=== PATIENT | female | born 1985 | race Caucasian/White ===

== ENCOUNTER 2016-11-14 12:52 | Inpatient (IN) | payer OTHER ==
[2016-11-14] VITALS (26 sets, daily range): BP systolic 98–176; BP diastolic 72–115; PULSE 54–95; RESP 16–20; TEMP 98.2–98.3; O2SAT 97–100
[~2016-11-14 12:52] MED LIST: ACYC-1 PO; AMBI5TAB PO; ARIP1TAB12 PO; AUGM875T PO; CLON.5 PO; CLON1 PO; DIPH25CA PO; ESCI10TA PO; ESCI20TA PO; EXTR500C PO; GABA800T PO; HYDR-3366 PO; HYDR-3583 PO; K-PHTAB PO; LAMO100 PO; LEVE500 PO; LEXA20TA PO; LURA20TA PO; MEDR4PAK3 PO; NEUR300C PO; PHEN-430 PO; PROM25TA5 PO; SUMA50TA2 PO; TIZA4 PO; ZOLP5TAB3 PO; levETIRAcetam PO
[2016-11-14] MEDS ORDERED: LORazepam 2 MG/ML VIAL ONE (12:58)
[2016-11-14] MEDS ORDERED: ETOMIDATE 20 MG/10 ML VIAL ONE ×2 (13:01→13:02)
[2016-11-14] MEDS ORDERED: PROPOFOL 1000 MG/100 ML INJ 100 ML ONE ×2 (13:02→15:46)
[2016-11-14] MEDS ORDERED: LIDOCAINE HCL 2% 100 MG/5 ML SYRINGE ONE (13:02)
[2016-11-14] MEDS ORDERED: ROCURONIUM INJ 50 MG/5 ML VIAL ONE (13:03)
[2016-11-14] MEDS ORDERED: levETIRAcetam INJ 1,000 MG in SODIUM CHLORIDE 0.9% INJ 100 ML IV ONE (13:15)
[2016-11-14] MEDS ORDERED: SUCCINYLCHOLINE CHLORIDE 200 MG/10 ML VIAL IVP ONE (13:15)
[2016-11-14] MEDS ORDERED: LORazepam 2 MG/ML VIAL IV PUSH ONE ×3 (13:15→16:30)
[2016-11-14] MEDS ORDERED: PHENYTOIN IV ONE (13:15)
[2016-11-14] MEDS ORDERED: ETOMIDATE 20 MG/10 ML VIAL IVP ONE (13:15)
[2016-11-14] MEDS ORDERED: SODIUM CHLORIDE 0.9% FLUSH 10 ML FLUSH IVF PRN (13:15)
[2016-11-14] MEDS ORDERED: SODIUM CHLOR 0.9% IV ONE (13:15)
--- NOTE | 2016-11-14 13:30 | PD ---
HPI Chief Complaint: Seizure Time Seen by Provider: 12:54 Travel History International Travel<30 days: No Contact w/Intl Traveler<30days: No Traveled to known affect area: No History of Present Illness HPI The patient was seen and examined in the presence of the nurse. This patient arrives critically ill. She was witnessed to have grand mal seizure activity at the social security office. Paramedics responded and she seized almost continually during the transport. Patient arrives unresponsive, looks postictal. She did receive Ativan 2 mg IM. Symptoms are severe. She cannot provide any history or review of systems. PFSH Past Medical History Arthritis: No Autoimmune Disease: No Blood Disorders: No Bipolar Disorder: Yes Anxiety: Yes Depression: Yes Cancer: Yes (cervical cancer - removed) Cardiovascular Problems: No Chemotherapy: No Cerebrovascular Accident: No Diabetes: No Diminished Hearing: No Endocrine: No Gastrointestinal Disorders: Yes (nausea all the time) GERD: Yes Genitourinary: No Headaches: Yes Immune Disorder: No Implanted Vascular Access Dvce: No Kidney Stones: Yes (passed stone in 2011) Musculoskeletal: Yes (back pain) Psychiatric: Yes (Bipolar, ptsd, multiple personalties) Reproductive: Yes Immunizations Current: Yes Migraines: Yes Radiation Therapy: No Seizures: Yes Thyroid Disease: No Ulcer: Yes (PEPTIC) : 0 Para: 0 Miscarriage: 0 : 0 Ovarian Cysts: Yes (3 lap surgeries) Past Surgical History Abdominal Surgery: Yes (gallbladder removed, tonsils and adenoids removed) Cardiac Surgery: No Cholecystectomy: Yes Ear Surgery: No Endocrine Surgery: No Eye Surgery: Yes (left eye surgeries X3 (lazy eye)) Genitourinary Surgery: No Gynecologic Surgery: Yes Neurologic Surgery: No Oral Surgery: No Thoracic Surgery: No Other Surgery: Yes (cervical leep) Social History Alcohol Use: Yes (OCC) Tobacco Use: No (VAPE) Substance Use: No Allergies-Medications (Allergen,Severity, Reaction): Coded Allergies: erythromycin base (Unverified Allergy, Severe, Fever, 10/07/16) gabapentin (Unverified Allergy, Severe, Seizures, 10/07/16) ketorolac (Unverified Allergy, Severe, Urinary Freq (Inc/Dec), 10/07/16) ondansetron (Unverified Allergy, Severe, Twitching, 10/07/16) phenobarbital (Unverified Allergy, Severe, Seizures, 10/07/16) Patient states that she is not allergic to phenobarbital tramadol (Unverified Allergy, Severe, Urinary Freq (Inc/Dec), 10/07/16) metoclopramide (Unverified Adverse Reaction, Intermediate, 10/07/16) SHAKING *MDRO Multi-Drug Resistant Organism (Verified Adverse Reaction, Unknown, ) MRSA PCR screen positive - 04/23/2015 prochlorperazine (Unverified Adverse Reaction, Unknown, AGITATION, 10/14/16 ) Reported Meds & Prescriptions Reported Meds & Active Scripts Active Medrol Dosepak (Methylprednisolone) 4 Mg Silvio 4 Mg PO DIRECTED TAKE DIRECTED Augmentin 875 mg Tab (Amoxicillin & Pot Clavulanate 875 mg Tab) 875 Mg Tab 1 Tab PO BID 10 Days Lamictal (Lamotrigine) 100 Mg Tab 100 Mg PO Q12HR Future refills by neurology. Keppra (Levetriacetam) 500 Mg Tab 1,000 Mg PO Q12H 30 Days [levETIRAcetam] 500 MG Tab 500 Mg PO Q12HR Ambien (Zolpidem Tartrate) 5 Mg Tab 5 Mg PO HS Zanaflex (Tizanidine HCl) 4 Mg Tab 4 Mg PO HS Neurontin (Gabapentin) 300 Mg Cap 600 Mg PO TID Escitalopram (Escitalopram Oxalate) 20 Mg Tab 30 Mg PO HS Klonopin (Clonazepam) 0.5 Mg Tab 0.5 Mg PO Q12HR Aripiprazole 10 Mg Tab 10 Mg PO DAILY Keppra (Levetiracetam) 500 Mg Tab 500 Mg PO Q12HR Klonopin (Clonazepam) 0.5 Mg Tab 0.5 Mg PO Q12HR Sumatriptan (Sumatriptan Succinate) 50 Mg Tab 50 Mg PO ONCE PRN If a satisfactory response has not been obtained at 2 hours, a second dose may be administered Acetaminophen Extra Strength (Acetaminophen) 500 Mg Cap 1,000 Mg PO Q6H PRN Phenergan (Promethazine HCl) 25 Mg Tab 25 Mg PO Q6H PRN K-Phos (Potassium Phosphate Monobasic) 500 Mg Tab 1,000 Mg PO Q12HR Keppra (Levetiracetam) 500 Mg Tab 500 Mg PO Q12H Reported Zovirax 800 Mg Tab (Acyclovir) 800 Mg Tab 800 Mg PO BID Klonopin (Clonazepam) 1 Mg Tab 1 Mg PO TID [place] (Hydrocodone-Acetaminophen) 10-325 Mg Tab 1 Tab PO Q6H PRN Latuda (Lurasidone) 20 Mg Tab 20 Mg PO HS Lexapro (Escitalopram Oxalate) 20 Mg Tab 20 Mg PO HS Keppra (Levetiracetam) 500 Mg Tab 500 Mg PO DAILY Diphenhydramine (Diphenhydramine HCl) 25 Mg Cap 25 Mg PO Q6H PRN Gabapentin 800 Mg Tab 800 Mg PO TID Zolpidem (Zolpidem Tartrate) 5 Mg Tab 5 Mg PO HS PRN Escitalopram (Escitalopram Oxalate) 20 Mg Tab 20 Mg PO DAILY Phenazopyridine (Phenazopyridine HCl) 200 Mg Tab 200 Mg PO TID PRN Sumatriptan (Sumatriptan Succinate) 50 Mg Tab 50 Mg PO ONCE PRN If a satisfactory response has not been obtained at 2 hours, a second dose may be administered Escitalopram (Escitalopram Oxalate) 10 Mg Tab 10 Mg PO DAILY Hydrocodone-Acetaminophen 10-325 mg Tab 1 Tab PO Q6H PRN Review of Systems ROS Limitations: Clinical Condition, Altered Mental Status, Unresponsive, Poor Historian Physical Exam Narrative GENERAL: Obese young female who is unresponsive. SKIN: Focused skin assessment reveals no rash and nodules. Skin is Warm and dry. HEAD: Atraumatic. Normocephalic. EYES: Pupils equal and round. No scleral icterus. No injection or drainage. ENT: No nasal bleeding or discharge. Mucous membranes pink and moist. Patient has no gag reflex. She clearly cannot control her airway NECK: Trachea midline. No JVD. CARDIOVASCULAR: Regular rate and rhythm. No murmur appreciated. RESPIRATORY: No accessory muscle use. Clear to auscultation. Breath sounds equal bilaterally. GASTROINTESTINAL: Abdomen soft, non-tender, nondistended. Hepatic and splenic margins not palpable. MUSCULOSKELETAL: No obvious deformities. No clubbing. No cyanosis. No edema. NEUROLOGICAL: No response to pain stimuli. No gag reflex. Impossible to test motor strength or sensation given her limited participation. She is nonverbal PSYCHIATRIC: Impossible to test mood and affect; insight and judgment poor Data Data Last Documented VS Vital Signs Date Time Temp Pulse Resp B/P (MAP) Pulse Ox O2 Delivery O2 Flow Rate FiO2 11/14/16 13:40 100 100 Orders Orders Lorazepam Inj (Ativan Inj) (11/14/16 12:58) Etomidate Inj (Amidate Inj) (11/14/16 13:01) Etomidate Inj (Amidate Inj) (11/14/16 13:02) Lidocaine 2% Inj (Xylocaine 2% Inj) (11/14/16 13:02) Propofol 1000 Mg/100 Ml Inj (Diprivan 10 (11/14/16 13:02) Rocuronium Inj (Zemuron Inj) (11/14/16 13:03) Vascular Access Team Consult/P PRN (11/14/16 13:14) Vascular Poc Ultrasound (11/14/16 ) Chest, Single Ap (11/14/16 13:14) Arterial Blood Gas (Abg) (11/14/16 13:14) Ecg Monitoring (11/14/16 13:14) Iv Access Insert/Monitor (11/14/16 13:14) Ng Gastric Tube Insert/Monitor (11/14/16 13:14) Urinary Catheter Insert/Apply (11/14/16 13:14) Oximetry (11/14/16 13:14) Oxygen Administration (11/14/16 13:14) Etomidate Inj (Amidate Inj) (11/14/16 13:15) Succinylcholine Inj (Quelicin Inj) (11/14/16 13:15) Sodium Chloride 0.9% Flush (Ns Flush) (11/14/16 13:15) Restraints Non-Violent MARY.Q3H (11/14/16 13:14) Lorazepam Inj (Ativan Inj) (11/14/16 13:15) Beta Hcg (Quant/Titer) (11/14/16 13:14) Complete Blood Count With Diff (11/14/16 13:14) Basic Metabolic Panel (Bmp) (11/14/16 13:14) Drug Screen, Random Urine (11/14/16 13:14) Alcohol (Ethanol) (11/14/16 13:14) Phenytoin (Dilantin) (11/14/16 13:14) Phenytoin Inj (Dilantin Inj) (11/14/16 13:15) Levetiracetam Inj (Keppra Inj) (11/14/16 13:15) Ct Brain W/O Iv Contrast(Rout) (11/14/16 ) Lorazepam Inj (Ativan Inj) (11/14/16 14:45) Rocuronium Inj (Zemuron Inj) (11/14/16 14:45) Admit Order (Ed Use Only) (11/14/16 15:00) Labs Laboratory Tests Test 11/14/16 13:00 11/14/16 13:45 11/14/16 14:31 White Blood Count 12.9 TH/MM3 Red Blood Count 4.27 MIL/MM3 Hemoglobin 13.0 GM/DL Hematocrit 37.5 % Mean Corpuscular Volume 87.7 FL Mean Corpuscular Hemoglobin 30.5 PG Mean Corpuscular Hemoglobin Concent 34.8 % Red Cell Distribution Width 12.9 % Platelet Count 287 TH/MM3 Mean Platelet Volume 9.5 FL Neutrophils (%) (Auto) 68.2 % Lymphocytes (%) (Auto) 24.4 % Monocytes (%) (Auto) 5.6 % Eosinophils (%) (Auto) 1.6 % Basophils (%) (Auto) 0.2 % Neutrophils # (Auto) 8.8 TH/MM3 Lymphocytes # (Auto) 3.2 TH/MM3 Monocytes # (Auto) 0.7 TH/MM3 Eosinophils # (Auto) 0.2 TH/MM3 Basophils # (Auto) 0.0 TH/MM3 CBC Comment DIFF FINAL Differential Comment Blood Urea Nitrogen 10 MG/DL Creatinine 0.76 MG/DL Random Glucose 102 MG/DL Calcium Level 8.7 MG/DL Sodium Level 138 MEQ/L Potassium Level 3.9 MEQ/L Chloride Level 107 MEQ/L Carbon Dioxide Level 23.5 MEQ/L Anion Gap 8 MEQ/L Estimat Glomerular Filtration Rate 89 ML/MIN Human Chorionic Gonadotropin, Quant LESS THAN 1 MIU/ML Phenytoin (Dilantin) Level LESS THAN 0.4 MCG/ML Ethyl Alcohol Level LESS THAN 3 MG/DL Urine Opiates Screen POS Urine Barbiturates Screen NEG Urine Amphetamines Screen NEG Urine Benzodiazepines Screen NEG Urine Cocaine Screen NEG Urine Cannabinoids Screen NEG Blood Gas Puncture Site LT RADIAL Blood Gas Patient Temperature 98.6 Blood Gas HCO3 21 mmol/L Blood Gas Base Excess -2.4 mmol/L Blood Gas Oxygen Saturation 97 % Arterial Blood pH 7.42 Arterial Blood Partial Pressure CO2 34 mmHG Arterial Blood Partial Pressure O2 278 mmHG Arterial Blood Oxygen Content 16.9 Vol % Arterial Blood Carboxyhemoglobin 1.7 % Arterial Blood Methemoglobin 1.1 % Blood Gas Hemoglobin 11.9 G/DL Oxygen Delivery Device VENTILATOR Blood Gas Ventilator Setting VT550/RATE16/PEEP 5 Blood Gas Inspired Oxygen 100 % MDM Medical Decision Making Medical Screen Exam Complete: Yes Emergency Medical Condition: Yes Medical Record Reviewed: Yes Differential Diagnosis Status epilepticus, noncompliance, breakthrough seizure, intracranial hemorrhage Narrative Course I have reviewed the patient's electronic medical record. Patient has been hospitalized and seen in the ER multiple times for seizure-related activity. She also has bipolar disease and has been noncompliant with medication the past Patient arrives critically ill and status epilepticus. She is continually seizing and unresponsive with no gag reflex and not controlling her airway. She has challenging IV access Total of 3 IVs replaced, one in her left hand and one in each upper arm using ultrasound guidance INTUBATION: The patient was put in optimal position for the procedure. Rapid sequence intubation was initiated by me using 20 milligrams of etomidate IV and 125 milligrams of succinylcholine IV. The patient was intubated with a 8-0 cuffed endotracheal tube. Tube placement was confirmed by visualization of the tube and balloon passing through the cords, capnometry and subsequent chest x- ray. Breath sounds were equal and well aerated bilaterally postintubation. No breath sounds over stomach. Patient tolerated procedure well. Patient required emergent intubation for airway control I gave her 2 mg IV Ativan I reviewed her medical records extensively. She was discharged from the hospital recently on Keppra but no Dilantin. Therefore going to Dilantin load her 15 mg/kg which is going to be 1700 mg IV. I gave her 1000 mg IV Keppra. I reviewed her chest x-ray which shows the tip of the ET tube near the mirella. We pulled back the tube 1.5 cm after x-ray review CBC is normal Metabolic profile is normal Beta hCG is negative Alcohol level is negative Tox screen positive for opiates Dilantin level is negative, drawn prior to loading I had to give her second 2 mg IV Ativan Complex case requiring a lot of bedside time Brain CT has been done, awaiting radiology reading Reviewed with refrigeration plant operator. They recommended transfer to the main [facility] Critical Care Narrative Aggregate critical care time was 80 minutes. Time to perform other separately billable procedures was not included in the critical care time. My time did not include minutes spent treating any other patients simultaneously or on activities that did not directly contribute to the patient's treatment. The services I provided to this patient were to treat and/or prevent clinically significant deterioration that could result in: Aspiration, loss of airway, cardiopulmonary arrest, intracranial hemorrhage I provided critical care services requiring my management, as noted below: Chart data review, documentation time, medication orders and management, vital sign assessments/reviewing monitor data, ordering and reviewing lab tests, ordering and interpreting/reviewing x-rays and diagnostic studies, care of the patient and discussion of the patient with the admitting physicians. Diagnosis Primary Impression: Status epilepticus Additional Impression: Airway compromise Admitting Information Admitting Physician Requests: it Joao Magana MD Nov 14, 2016 13:30
[2016-11-14 13:41] LABS: AUTOMATED NEUTROPHIL # 8.8 TH/MM3 (1.8-7.7); BASOPHIL % 0.2 % (0.0-2.0); EOSINOPHIL # 0.2 TH/MM3 (0-0.4); EOSINOPHIL % 1.6 % (0.0-4.0); HEMATOCRIT 37.5 % (35.0-46.0); HEMO FLAGS DIFF FINAL; LYMPH % 24.4 % (9.0-44.0); LYMPHOCYTE # 3.2 TH/MM3 (1.0-4.8); MEAN CELL VOLUME 87.7 FL (80.0-100.0); MEAN CORPUSCULAR HEMOGLOBIN 30.5 PG (27.0-34.0); MEAN CORPUSCULAR HGB CONC 34.8 % (32.0-36.0); MONO % 5.6 % (0.0-8.0); NEUT % 68.2 % (16.0-70.0); PLATELET COUNT 287 TH/MM3 (150-450); RED BLOOD COUNT 4.27 MIL/MM3 (4.00-5.30); RED CELL DISTRIBUTION WIDTH 12.9 % (11.6-17.2); WHITE BLOOD COUNT 12.9 TH/MM3 (4.0-11.0)
[2016-11-14 13:52] LABS: CHLORIDE 107 MEQ/L (98-107); POTASSIUM 3.9 MEQ/L (3.5-5.1); SODIUM (NA) 138 MEQ/L (136-145)
[2016-11-14 13:55] LABS: ANION GAP 8 MEQ/L (5-15); BICARBONATE 23.5 MEQ/L (21.0-32.0); BLOOD UREA NITROGEN 10 MG/DL (7-18)
[2016-11-14 13:58] LABS: GLOMERULAR FILTRATION RATE 89 ML/MIN (>89)
[2016-11-14 14:02] LABS: ALCOHOL LESS THAN 3 MG/DL (0-5)
[2016-11-14 14:03] LABS: BETA HCG QUANT LESS THAN 1 MIU/ML (0-5)
--- NOTE | 2016-11-14 14:31 | RADRPT ---
EXAM DATE/TIME: 11/14/2016 13:29 [facility] COMPARISON: CHEST SINGLE AP, September 03, 2016, 22:13. INDICATIONS : Post Intubation MEDICAL HISTORY : Seizures SURGICAL HISTORY : None. ENCOUNTER: Initial ACUITY: 1 day PAIN SCORE: Non-responsive. LOCATION: Bilateral chest FINDINGS: A single view of the chest demonstrates hypoinflation. No acute infiltrate. Minimal atelectatic garcia es in the left lingula. Accounting for low lung lines, heart size is borderline prominent a well comp ensated. Endotracheal tube is identified with the tip near the orifice of the right mainstem bronchus . Nasogastric tube has been removed. Right subclavian central venous catheter has been removed. CONCLUSION: 1. Hypoinflation with minimal left lingular atelectasis. No confluent infiltrate. 2. Borderline prominence while compensated heart. 3. Endotracheal tube. Tip of the tube is at the origin of the right mainstem bronchus. This should pr obably be backed off a centimeter or 2. Rickie Sethi MD on November 14, 2016 at 14:26 Board Certified Radiologist. This report was verified electronically.
[2016-11-14 14:41] LABS: BLOOD GAS BASE EXCESS -2.4 mmol/L (-2-2); BLOOD GAS CARBOXYHEMOGLOBIN 1.7 % (0-4); BLOOD GAS HCO3 21 mmol/L (22-26); BLOOD GAS METHEMOGLOBIN 1.1 % (0-2); BLOOD GAS O2 HGB SATURATION 97 % (90-100); BLOOD GAS OXYGEN CONTENT 16.9 Vol % (12.0-20.0); BLOOD GAS PCO2 34 mmHG (38-42); BLOOD GAS PO2 278 mmHG (61-120); BLOOD GAS TOTAL HGB 11.9 G/DL (12.0-16.0); CRITICAL VALUE NO; OXYGEN DEVICE VENTILATOR; TEMP CORR TO 98.6
[2016-11-14 14:42] LABS: DRAW SITE LT RADIAL; FIO2 100 %; NUMBER OF ARTERIAL PUNCTURES 1; STAT NO; ULNAR PULSE PRESENT; VENT SETTINGS VT550/RATE16/PEEP 5
[2016-11-14] MEDS ORDERED: ROCURONIUM INJ 50 MG/5 ML VIAL IV ONE (14:45)
--- NOTE | 2016-11-14 15:04 | RADRPT ---
EXAM DATE/TIME: 11/14/2016 14:49 [facility] COMPARISON: CT BRAIN W/O CONTRAST, September 06, 2016, 5:31. INDICATIONS : Altered mental status. Multiple seizures. RADIATION DOSE: 64.12 CTDIvol (mGy) MEDICAL HISTORY : Seizures. SURGICAL HISTORY : Cholecystectomy. ENCOUNTER: Initial ACUITY: 1 day PAIN SCALE: Non-responsive LOCATION: cranial TECHNIQUE: Multiple contiguous axial images were obtained of the head. Using automated exposure control and adj ustment of the mA and/or kV according to patient size, radiation dose was kept as low as reasonably a chievable to obtain optimal diagnostic quality images. DICOM format image data is available electro nically for review and comparison. FINDINGS: CEREBRUM: The ventricles are normal for age. No evidence of midline shift, mass lesion, hemorrhage or acute in farction. No extra-axial fluid collections are seen. POSTERIOR FOSSA: The cerebellum and brainstem are intact. The 4th ventricle is midline. The cerebellopontine angle i s unremarkable. EXTRACRANIAL: The visualized portion of the orbits is intact. Minimal mucoperiosteal thickening in the anterior eth moid air cells SKULL: The calvaria is intact. No evidence of skull fracture. CONCLUSION: 1. Minimal chronic sinus disease. 2. Otherwise negative Rickie Sethi MD on November 14, 2016 at 15:02 Board Certified Radiologist. This report was verified electronically.
[2016-11-14] MEDS ORDERED: SODIUM CHLOR 0.9% 1000 ML INJ 1,000 ML IV SCH (15:10)
[2016-11-14] MEDS ORDERED: SENNOSIDES 8.6 MG TAB PO PRN (15:15)
[2016-11-14] MEDS ORDERED: CHLORHEXIDINE GLUCONATE 2 % 1 PACK (2 CLOTHS) TOP PRN (15:15)
[2016-11-14] MEDS ORDERED: MAGNESIUM HYDROXIDE SUSP 30 ML CUP PO PRN (15:15)
[2016-11-14] MEDS ORDERED: SODIUM CHLORIDE 0.9% FLUSH 10 ML FLUSH IV FLUSH PRN (15:15)
[2016-11-14] MEDS ORDERED: ACETAMINOPHEN 325 MG TAB PO PRN (15:15)
[2016-11-14] MEDS ORDERED: LACTULOSE SYRUP 20 GM/30 ML CUP PO PRN (15:15)
[2016-11-14] MEDS ORDERED: MISCELLANEOUS NURSING INFORMATION XX SCH (15:15)
[2016-11-14] MEDS ORDERED: MIDAZOLAM 100 MG/100 ML INJ 100 ML IV PRN (15:15)
[2016-11-14] MEDS ORDERED: BISACODYL 10 MG SUPP RECTAL PRN (15:15)
[2016-11-14] MEDS ORDERED: LORazepam 2 MG/ML VIAL IV PUSH PRN (15:15)
[2016-11-14] MEDS ORDERED: PROPOFOL 1000 MG/100 ML INJ 100 ML IV PRN (15:15)
[2016-11-14] MEDS ORDERED: RESP: ALBUTEROL 2.5 MG/3 ML NEB (PRN) INH (15:15)
[2016-11-14] MEDS ORDERED: RESP: ALBUTEROL 2.5 MG/IPRATROPIUM 0.5 MG NEB (SCH) INH (16:00)
[2016-11-14] MEDS ORDERED: MIDAZOLAM 100 MG/NS 100 ML DRIP Premix IV PRN (16:00)
[2016-11-14] MEDS ORDERED: PROPOFOL 1000 MG/100 ML IV PRN (16:15)
[2016-11-14] MEDS ORDERED: MIDAZOLAM HCL 5 MG/ML VIAL (1 ML) ONE (16:18)
--- NOTE | 2016-11-14 17:06 | HHI.HP ---
HPI Service Critical Care Medicine Primary Care Physician No Primary Care Physician Admission Diagnosis status epilepticus Diagnosis: Travel History International Travel<30 Days: No Contact w/Intl Traveler <30 Da: No Traveled to Known Affected Are: No Sepsis Criteria SIRS Criteria (2 or more): Temp > 100.9 or < 96.8 History of Present Illness She was witnessed to have grand mal seizure activity at the social security office. The patient was transported to [facility] . The paramedics responded and she seized almost continually during the transport. Patient arrived unresponsive, looks postictal. She did receive Ativan 2 mg IM. Symptoms are severe. She cannot provide any history or review of systems. After evaluation in the [facility] ED the patient was emergently transferred to [facility], Critical Care medicine is consulted for management. History PFSH Past Medical History Arthritis: No Autoimmune Disease: No Blood Disorders: No Bipolar Disorder: Yes Anxiety: Yes Depression: Yes Cancer: Yes (cervical cancer - removed) Cardiovascular Problems: No Chemotherapy: No Cerebrovascular Accident: No Diabetes: No Diminished Hearing: No Endocrine: No Gastrointestinal Disorders: Yes (nausea all the time) GERD: Yes Genitourinary: No Headaches: Yes Immune Disorder: No Implanted Vascular Access Dvce: No Kidney Stones: Yes (passed stone in 2011) Musculoskeletal: Yes (back pain) Psychiatric: Yes (Bipolar, ptsd, multiple personalties) Reproductive: Yes Immunizations Current: Yes Migraines: Yes Radiation Therapy: No Seizures: Yes Thyroid Disease: No Ulcer: Yes (PEPTIC) : 0 Para: 0 Miscarriage: 0 : 0 Ovarian Cysts: Yes (3 lap surgeries) Past Surgical History Abdominal Surgery: Yes (gallbladder removed, tonsils and adenoids removed) Cardiac Surgery: No Cholecystectomy: Yes Ear Surgery: No Endocrine Surgery: No Eye Surgery: Yes (left eye surgeries X3 (lazy eye)) Genitourinary Surgery: No Gynecologic Surgery: Yes Neurologic Surgery: No Oral Surgery: No Thoracic Surgery: No Other Surgery: Yes (cervical leep) Social History Alcohol Use: Yes (OCC) Tobacco Use: No (VAPE) Substance Use: No Allergies-Medications Allergies-Medications (Allergen,Severity, Reaction): Coded Allergies: erythromycin base (Unverified Allergy, Severe, Fever, 10/07/16) gabapentin (Unverified Allergy, Severe, Seizures, 10/07/16) ketorolac (Unverified Allergy, Severe, Urinary Freq (Inc/Dec), 10/07/16) ondansetron (Unverified Allergy, Severe, Twitching, 10/07/16) phenobarbital (Unverified Allergy, Severe, Seizures, 10/07/16) Patient states that she is not allergic to phenobarbital tramadol (Unverified Allergy, Severe, Urinary Freq (Inc/Dec), 10/07/16) metoclopramide (Unverified Adverse Reaction, Intermediate, 10/07/16) SHAKING *MDRO Multi-Drug Resistant Organism (Verified Adverse Reaction, Unknown, ) MRSA PCR screen positive - 04/23/2015 prochlorperazine (Unverified Adverse Reaction, Unknown, AGITATION, 10/14/16 ) Reported Meds & Prescriptions Reported Meds & Active Scripts Active Medrol Dosepak (Methylprednisolone) 4 Mg Silvio 4 Mg PO DIRECTED TAKE DIRECTED Augmentin 875 mg Tab (Amoxicillin & Pot Clavulanate 875 mg Tab) 875 Mg Tab 1 Tab PO BID 10 Days Lamictal (Lamotrigine) 100 Mg Tab 100 Mg PO Q12HR Future refills by neurology. Keppra (Levetriacetam) 500 Mg Tab 1,000 Mg PO Q12H 30 Days [levETIRAcetam] 500 MG Tab 500 Mg PO Q12HR Ambien (Zolpidem Tartrate) 5 Mg Tab 5 Mg PO HS Zanaflex (Tizanidine HCl) 4 Mg Tab 4 Mg PO HS Neurontin (Gabapentin) 300 Mg Cap 600 Mg PO TID Escitalopram (Escitalopram Oxalate) 20 Mg Tab 30 Mg PO HS Klonopin (Clonazepam) 0.5 Mg Tab 0.5 Mg PO Q12HR Aripiprazole 10 Mg Tab 10 Mg PO DAILY Keppra (Levetiracetam) 500 Mg Tab 500 Mg PO Q12HR Klonopin (Clonazepam) 0.5 Mg Tab 0.5 Mg PO Q12HR Sumatriptan (Sumatriptan Succinate) 50 Mg Tab 50 Mg PO ONCE PRN If a satisfactory response has not been obtained at 2 hours, a second dose may be administered Acetaminophen Extra Strength (Acetaminophen) 500 Mg Cap 1,000 Mg PO Q6H PRN Phenergan (Promethazine HCl) 25 Mg Tab 25 Mg PO Q6H PRN K-Phos (Potassium Phosphate Monobasic) 500 Mg Tab 1,000 Mg PO Q12HR Keppra (Levetiracetam) 500 Mg Tab 500 Mg PO Q12H Reported Zovirax 800 Mg Tab (Acyclovir) 800 Mg Tab 800 Mg PO BID Klonopin (Clonazepam) 1 Mg Tab 1 Mg PO TID [place] (Hydrocodone-Acetaminophen) 10-325 Mg Tab 1 Tab PO Q6H PRN Latuda (Lurasidone) 20 Mg Tab 20 Mg PO HS Lexapro (Escitalopram Oxalate) 20 Mg Tab 20 Mg PO HS Keppra (Levetiracetam) 500 Mg Tab 500 Mg PO DAILY Diphenhydramine (Diphenhydramine HCl) 25 Mg Cap 25 Mg PO Q6H PRN Gabapentin 800 Mg Tab 800 Mg PO TID Zolpidem (Zolpidem Tartrate) 5 Mg Tab 5 Mg PO HS PRN Escitalopram (Escitalopram Oxalate) 20 Mg Tab 20 Mg PO DAILY Phenazopyridine (Phenazopyridine HCl) 200 Mg Tab 200 Mg PO TID PRN Sumatriptan (Sumatriptan Succinate) 50 Mg Tab 50 Mg PO ONCE PRN If a satisfactory response has not been obtained at 2 hours, a second dose may be administered Escitalopram (Escitalopram Oxalate) 10 Mg Tab 10 Mg PO DAILY Hydrocodone-Acetaminophen 10-325 mg Tab 1 Tab PO Q6H PRN ROS Review of Systems ROS Limitations: Clinical Condition, Altered Mental Status, Unresponsive, Poor Historian Past Family Social History Allergies: Coded Allergies: erythromycin base (Unverified Allergy, Severe, Fever, 10/07/16) gabapentin (Unverified Allergy, Severe, Seizures, 10/07/16) ketorolac (Unverified Allergy, Severe, Urinary Freq (Inc/Dec), 10/07/16) ondansetron (Unverified Allergy, Severe, Twitching, 10/07/16) phenobarbital (Unverified Allergy, Severe, Seizures, 10/07/16) Patient states that she is not allergic to phenobarbital tramadol (Unverified Allergy, Severe, Urinary Freq (Inc/Dec), 10/07/16) metoclopramide (Unverified Adverse Reaction, Intermediate, 10/07/16) SHAKING *MDRO Multi-Drug Resistant Organism (Verified Adverse Reaction, Unknown, ) MRSA PCR screen positive - 04/23/2015 prochlorperazine (Unverified Adverse Reaction, Unknown, AGITATION, 10/14/16 ) Physical Exam Vital Signs Vital Signs Date Time Temp Pulse Resp B/P (MAP) Pulse Ox O2 Delivery O2 Flow Rate FiO2 11/14/16 15:50 54 16 147/85 (105) 100 Ventilator 40 11/14/16 15:00 40 11/14/16 14:08 79 16 176/115 (135) 100 Ventilator 40 11/14/16 14:00 100 100 11/14/16 13:59 54 16 147/85 (105) 100 Ventilator 40 11/14/16 13:40 100 100 11/14/16 13:30 70 16 98/79 (85) 100 40 11/14/16 13:10 87 16 155/84 (107) 100 Ventilator 40 11/14/16 13:08 100 Ventilator 11/14/16 13:08 100 Ventilator 40 11/14/16 13:08 40 11/14/16 12:52 95 100 Non-Rebreather 15.00 11/14/16 12:52 98.2 95 20 145/110 (122) 100 Non-Rebreather 15.00 Physical Exam GENERAL: This is a morbidly obese critically ill-appearing female intubated and sedated SKIN: Warm and dry. HEAD: Atraumatic. Normocephalic. EYES: Pupils equal and round. No scleral icterus. No injection or drainage. ENT: No nasal bleeding or discharge. Mucous membranes pink and moist. NECK: Trachea midline. No JVD. CARDIOVASCULAR: Normal rate, regular rhythm. RESPIRATORY: No accessory muscle use. Clear to auscultation. Breath sounds equal bilaterally. GASTROINTESTINAL: Abdomen soft, protuberant ,non-tender, nondistended. No guarding. Normoactive bowel sounds MUSCULOSKELETAL: Extremities without clubbing, cyanosis, or edema. No obvious deformities. NEUROLOGICAL: GCS 3T. No gross seizure activity noted at this time. Laboratory Laboratory Tests Test 11/14/16 13:00 11/14/16 13:45 11/14/16 14:31 White Blood Count 12.9 Red Blood Count 4.27 Hemoglobin 13.0 Hematocrit 37.5 Mean Corpuscular Volume 87.7 Mean Corpuscular Hemoglobin 30.5 Mean Corpuscular Hemoglobin Concent 34.8 Red Cell Distribution Width 12.9 Platelet Count 287 Mean Platelet Volume 9.5 Neutrophils (%) (Auto) 68.2 Lymphocytes (%) (Auto) 24.4 Monocytes (%) (Auto) 5.6 Eosinophils (%) (Auto) 1.6 Basophils (%) (Auto) 0.2 Neutrophils # (Auto) 8.8 Lymphocytes # (Auto) 3.2 Monocytes # (Auto) 0.7 Eosinophils # (Auto) 0.2 Basophils # (Auto) 0.0 CBC Comment DIFF FINAL Differential Comment Blood Urea Nitrogen 10 Creatinine 0.76 Random Glucose 102 Calcium Level 8.7 Sodium Level 138 Potassium Level 3.9 Chloride Level 107 Carbon Dioxide Level 23.5 Anion Gap 8 Estimat Glomerular Filtration Rate 89 Human Chorionic Gonadotropin, Quant LESS THAN 1 Phenytoin (Dilantin) Level LESS THAN 0.4 Ethyl Alcohol Level LESS THAN 3 Urine Opiates Screen POS Urine Barbiturates Screen NEG Urine Amphetamines Screen NEG Urine Benzodiazepines Screen NEG Urine Cocaine Screen NEG Urine Cannabinoids Screen NEG Blood Gas Puncture Site LT RADIAL Blood Gas Patient Temperature 98.6 Blood Gas HCO3 21 Blood Gas Base Excess -2.4 Blood Gas Oxygen Saturation 97 Arterial Blood pH 7.42 Arterial Blood Partial Pressure CO2 34 Arterial Blood Partial Pressure O2 278 Arterial Blood Oxygen Content 16.9 Arterial Blood Carboxyhemoglobin 1.7 Arterial Blood Methemoglobin 1.1 Blood Gas Hemoglobin 11.9 Oxygen Delivery Device VENTILATOR Blood Gas Ventilator Setting VT550/RATE16/PEEP 5 Blood Gas Inspired Oxygen 100 Date/Time Source Procedure Growth Status 11/14/16 13:45 Urine Other Urine Culture Pending Received Result Diagram: 11/14/16 1300 11/14/16 1300 Imaging Last Impressions Chest X-Ray 11/14/16 1314 Signed Impressions: Service Date/Time: Monday, November 14, 2016 13:29 - CONCLUSION: 1. Hypoinflation with minimal left lingular atelectasis. No confluent infiltrate. 2. Borderline prominence while compensated heart. 3. Endotracheal tube. Tip of the tube is at the origin of the right mainstem bronchus. This should probably be backed off a centimeter or 2. Rickie Sethi MD Head CT 11/14/16 0000 Signed Impressions: Service Date/Time: Monday, November 14, 2016 14:49 - CONCLUSION: 1. Minimal chronic sinus disease. 2. Otherwise negative Rickie Sethi MD Septic Shock Reassessment Heart: Regular rate and rhythm Lungs: Clear Skin: Warm Peripheral Pulses: Bounding Right Radial Bounding Left Radial Bounding Right Dorsalis Pedis Bounding Left Dorsalis Pedis Capillary Refill: Brisk Caprini VTE Risk Assessment Caprini VTE Risk Assessment: Mod/High Risk (score >= 2) Caprini Risk Assessment Model Point Value = 1 Point Value = 2 Point Value = 3 Point Value = 5 Age 41-60 Minor surgery BMI > 25 kg/m2 Swollen legs Varicose veins or History of unexplained or recurrent spontaneous Oral contraceptives or hormone replacement Sepsis (< 1 month) Serious lung disease, including pneumonia (< 1 month) Abnormal pulmonary function Acute myocardial infarction Congestive heart failure (< 1 month) History of inflammatory bowel disease Medical patient at bed rest Age 61-74 Arthroscopic surgery Major open surgery (> 45 min) Laparoscopic surgery (> 45 min) Malignancy Confined to bed (> 72 hours) Immobilizing plaster cast Central venous access Age >= 75 History of VTE Family history of VTE Factor V Leiden Prothrombin [id number] Lupus anticoagulant Anticardiolipin antibodies Elevated serum homocysteine Heparin-induced thrombocytopenia Other congenital or acquired thrombophilia Stroke (< 1 month) Elective arthroplasty Hip, pelvis, or leg fracture Acute spinal cord injury (< 1 month) Prophylaxis Regimen Total Risk Factor Score Risk Level Prophylaxis Regimen 0-1 Low Early ambulation 2 Moderate Order ONE of the following: *Sequential Compression Device (SCD) *Heparin 5000 units SQ BID 3-4 Higher Order ONE of the following medications: *Heparin 5000 units SQ TID *Enoxaparin/Lovenox 40 mg SQ daily (WT < 150 kg, CrCl > 30 mL/min) *Enoxaparin/Lovenox 30 mg SQ daily (WT < 150 kg, CrCl > 10-29 mL/min) *Enoxaparin/Lovenox 30 mg SQ BID (WT < 150 kg, CrCl > 30 mL/min) AND/OR *Sequential Compression Device (SCD) 5 or more Highest Order ONE of the following medications: *Heparin 5000 units SQ TID (Preferred with Epidurals) *Enoxaparin/Lovenox 40 mg SQ daily (WT < 150 kg, CrCl > 30 mL/min) *Enoxaparin/Lovenox 30 mg SQ daily (WT < 150 kg, CrCl > 10-29 mL/min) *Enoxaparin/Lovenox 30 mg SQ BID (WT < 150 kg, CrCl > 30 mL/min) AND *Sequential Compression Device (SCD) Assessment and Plan Assessment and Plan Plan by systems: Neurologic Bipolar disorder Type 1 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 History of migraine headaches Neurology consulted Patient remains on Propofol and Versed infusions Keppra Fosphenytoin Ativan when necessary for agitation Neurochecks per ICU protocol Daily sedation vacation Respiratory: Acute respiratory failure secondary to seizure activity Maintain O2 sat greater than 92% Ventilator bundle SBT trials daily Bronchodilators every 6 hours scheduled every 2 hours when necessary Cardiovascular: Maintain MAP greater than 65mmHG Renal: Insert and maintain Avila catheter -- Strict I/Os FEN/GI: Maintain nothing by mouth status for now Left right replacement per ICU protocol Heme/ID: H/O HSV Endocrine: Close monitoring per ICU protocol -- SSI Prophylaxis: GI Prophylaxis [ ] DVT Prophylaxis -- SCDs Lovenox Lines: Peripheral IV x 2. Dispo: my billing statement This patient remains critically ill with one or more organ systems which are or may become a threat to life. I have spent in excess of 30 minutes discontinuously in the care and management of this patient. This time is exclusive of procedures, and includes, but is not limited to, evaluation of the patient, review of the medical record, discussions with family, consultants, nursing staff, or respiratory therapy, and documentation in the medical record. Code Status Full Discussed Condition With [employer] at bedside Marlene Green MD Nov 14, 2016 17:06
[2016-11-14] MEDS ORDERED: MAGNESIUM SULFATE INJ 2 GM in SODIUM CHLORIDE 0.9% INJ 96 ML IV PRN (17:15)
[2016-11-14] MEDS ORDERED: MAGNESIUM SULFATE INJ 4 GM in SODIUM CHLORIDE 0.9% INJ 92 ML IV PRN (17:15)
[2016-11-14] MEDS ORDERED: POTASSIUM PHOSPHATE MONOBASIC 500 MG TAB PO/TUBE PRN (17:15)
[2016-11-14] MEDS ORDERED: POTASSIUM CHLORIDE 25 MEQ EFFERVESCENT TAB PO PRN (17:15)
[2016-11-14] MEDS ORDERED: SODIUM PHOSPHATE INJ 30 MMOL in SODIUM CHLOR 0.9% 250 ML INJ 240 ML IV PRN (17:15)
[2016-11-14] MEDS ORDERED: POTASSIUM CHLOR 20 MEQ PREMIX 100 ML IV PRN ×2 (17:15)
[2016-11-14] MEDS ORDERED: POTASSIUM PHOSPHATE INJ 30 MMOL in SODIUM CHLOR 0.9% 250 ML INJ 250 ML IV PRN (17:15)
[2016-11-14] MEDS ORDERED: POTASSIUM CHLOR 40 MEQ PREMIX 100 ML IV PRN ×2 (17:15)
[2016-11-14] MEDS ORDERED: MAGNESIUM OXIDE 400 MG TAB PO PRN (17:15)
[2016-11-14] MEDS ORDERED: POTASSIUM PHOSPHATE MONOBASIC 500 MG TAB PO PRN (17:15)
[2016-11-14] MEDS ORDERED: ARTIFICIAL TEARS OPTH SOLN 15 ML BTL EACH EYE SCH (18:00)
[2016-11-14] MEDS ORDERED: ENOXAPARIN SODIUM 40 MG/0.4 ML SYRINGE SQ SCH (20:00)
[2016-11-14] MEDS ORDERED: CHLORHEXIDINE 0.12% (ORAL KIT) 15 ML CUP MT SCH (20:00)
[2016-11-14] MEDS: DOCUSATE SODIUM 50 MG/SENNA 8.6 MG TAB PO SCH (21:00)
[2016-11-14] MEDS: levETIRAcetam INJ 500 MG in SODIUM CHLORIDE 0.9% INJ 100 ML IV SCH (21:00)
[2016-11-14] MEDS ORDERED: FOSPHENYTOIN SODIUM 100 MG PE/2 ML VIAL IV SCH (22:00)
[2016-11-14] MEDS: SODIUM CHLORIDE 0.9% FLUSH 10 ML FLUSH IV FLUSH SCH (23:41)
[2016-11-15] VITALS (9 sets, daily range): BP systolic 111–144; BP diastolic 49–70; PULSE 55–100; RESP 14–23; TEMP 98.3–98.5; O2SAT 96–100
[2016-11-15] MEDS ORDERED: CHLORHEXIDINE GLUCONATE 2 % 1 PACK (2 CLOTHS) TOP SCH (04:00)
[2016-11-15] MEDS: levETIRAcetam INJ 500 MG in SODIUM CHLORIDE 0.9% INJ 100 ML IV SCH (08:52)
[2016-11-15] MEDS: SODIUM CHLORIDE 0.9% FLUSH 10 ML FLUSH IV FLUSH SCH (08:52)
[2016-11-15] MEDS: DOCUSATE SODIUM 50 MG/SENNA 8.6 MG TAB PO SCH (08:52)
[2016-11-15] MEDS ORDERED: LANSOPRAZOLE SOLUTAB 30 MG TAB G-TUBE SCH (09:00)
--- NOTE | 2016-11-15 11:01 | MB ---
cc: ARTHUR THOMPSON M.D. DATE OF CONSULTATION: 11/15/2016 REASON FOR CONSULTATION: She is seen in neurological consultation. She is 31-year-old seen with history of seizure recurrence. HISTORY: The patient has history of pseudoseizures and seizure disorder, multiple admissions for such a diagnosis. Yesterday she was in the social security office when she developed a grand mal seizures and transferred to the emergency room, initially came to [place] emergency room. She reportedly seized almost continually during the transportation. She was given Ativan. She indicates that she is taking Keppra 500 mg three times a day, hydrocodone 10 mg three times a day, Lexapro 30 mg a day and gabapentin 800 mg three times a day. Also on Ambien. The list of medications includes additional medications such as Imitrex, Latuda, Clonazepam, Zovirax. PHYSICAL EXAMINATION: Exam shows an obese female mildly lethargic but conversing, oriented, following commands. She has no recall of the seizures yesterday. She is moving all four extremities. Pupils somewhat large but reactive. Visual moreau full. No evidence of tongue injury. Muscle stretch reflexes trace versus absent throughout. LABORATORY DATA WBC 12.9, hemoglobin 13.0, platelets 287. Chemistry normal. Toxicology positive opiates. CT brain negative for acute process. ASSESSMENT: Pseudoseizures and seizures as the admitting diagnosis on this patient with extensive psychiatric history. History of migraine headaches. Initially treated with intubation and sedation. She is now extubated and regaining neurologic functions as expected. We will run an EEG and continue the. Medical care which is complex involving medicine, psychiatry and neurology. I will review the anticonvulsant after the EEG. Thank you for asking us to assist in her care. MD KANIKA Boland/kg /8:40 AM /10:41 AM
--- NOTE | 2016-11-15 11:11 | HHI.PR ---
Subjective Remarks Follow-up seizure. No recurrence. Patient admits noncompliance with Keppra. Denies fever, headache, neck pain and recent med adjustment. Also has anxiety and lower back pain. Discussed with critical care medicine and RN who will update medication list. Patient gets her prescriptions from [facility] on [address] Objective Vitals Vital Signs Date Time Temp Pulse Resp B/P (MAP) Pulse Ox O2 Delivery O2 Flow Rate FiO2 11/15/16 08:00 55 11/15/16 08:00 98.4 55 20 116/70 (85) 99 11/15/16 07:24 99 Nasal Cannula 4.00 11/15/16 06:00 84 11/15/16 04:00 66 11/15/16 04:00 98.5 66 23 119/57 (77) 96 11/15/16 02:00 62 11/15/16 00:00 98.4 65 14 111/58 (75) 100 11/15/16 00:00 65 11/14/16 22:00 91 11/14/16 20:00 87 11/14/16 20:00 98.2 87 20 134/85 (101) 100 11/14/16 19:43 100 Nasal Cannula 4.00 11/14/16 19:43 100 Nasal Cannula 4 11/14/16 19:20 40 11/14/16 19:00 40 11/14/16 18:00 98.2 57 16 119/72 (88) 98 11/14/16 18:00 57 11/14/16 17:00 98.3 58 16 124/73 (90) 97 11/14/16 16:35 68 16 124/82 (96) 99 Ventilator 40 11/14/16 16:30 67 16 119/84 (96) 99 Ventilator 40 11/14/16 16:25 68 16 118/79 (92) 100 Ventilator 40 11/14/16 16:20 89 16 118/72 (87) 100 40 11/14/16 16:20 11/14/16 15:59 58 16 162/93 (116) 97 Ventilator 40 11/14/16 15:52 58 18 165/83 (110) 100 40 11/14/16 15:50 54 16 147/85 (105) 100 Ventilator 40 11/14/16 15:37 68 16 168/90 (116) 100 Ventilator 40 11/14/16 15:30 40 11/14/16 15:27 62 16 156/83 (107) 100 Ventilator 11/14/16 15:15 68 100 Ventilator 40 11/14/16 15:11 65 16 145/75 (98) 98 Ventilator 40 11/14/16 15:05 63 18 140/73 (95) 98 Ventilator 40 11/14/16 15:00 40 11/14/16 14:41 64 16 157/74 (101) 100 Ventilator 40 11/14/16 14:27 68 16 131/88 (102) 100 Ventilator 40 11/14/16 14:08 79 16 176/115 (135) 100 Ventilator 40 11/14/16 14:00 100 100 11/14/16 13:59 54 16 147/85 (105) 100 Ventilator 40 11/14/16 13:40 100 100 11/14/16 13:30 70 16 98/79 (85) 100 40 11/14/16 13:10 87 16 155/84 (107) 100 Ventilator 40 11/14/16 13:08 100 Ventilator 11/14/16 13:08 100 Ventilator 40 11/14/16 13:08 40 11/14/16 12:52 95 100 Non-Rebreather 15.00 11/14/16 12:52 98.2 95 20 145/110 (122) 100 Non-Rebreather 15.00 I/O 11/14/16 11/14/16 11/14/16 11/15/16 11/15/16 11/15/16 07:00 15:00 23:00 07:00 15:00 23:00 Intake Total 200 ml 181.1 ml Output Total 1250 ml 220 ml Balance 200 ml -1250 ml -38.9 ml Intake IV Total 200 ml 181.1 ml Output Urine Total 1250 ml 220 ml Result Diagram: 11/14/16 1300 11/14/16 1300 Imaging Last Impressions Chest X-Ray 11/14/16 1314 Signed Impressions: Service Date/Time: Monday, November 14, 2016 13:29 - CONCLUSION: 1. Hypoinflation with minimal left lingular atelectasis. No confluent infiltrate. 2. Borderline prominence while compensated heart. 3. Endotracheal tube. Tip of the tube is at the origin of the right mainstem bronchus. This should probably be backed off a centimeter or 2. Rickie Sethi MD Head CT 11/14/16 0000 Signed Impressions: Service Date/Time: Monday, November 14, 2016 14:49 - CONCLUSION: 1. Minimal chronic sinus disease. 2. Otherwise negative Rickie Sethi MD Objective Remarks Well-developed, well-nourished in no distress Pupils equal and reactive to light and nonjaundiced Neck supple no bruit Equal in expansion clear to auscultation Regular rate and rhythm Abdomen soft nontender Extremities no edema no cyanosis Alert and oriented nonfocal Procedures Intubation A/P Problem List: (1) Seizure ICD Code: R56.9 - Seizure Status: Acute Assessment and Plan Neurologic Bipolar disorder Type 1 History of seizures and pseudoseizures (last admission 09/08 )-psychogenic nonepileptic seizures History of migraine headaches Noncompliance Switch to by mouth Keppra. Seizure precautions. Patient has been counseled regarding noncompliance. No driving, swimming alone, carrying Young children and climbing heights Neurochecks Follow-up pending labs prior to discharge today Respiratory: Acute respiratory failure secondary to seizure activity. Resolved Tolerating room air. Bronchodilators every 6 hours scheduled every 2 hours when necessary Prophylaxis: DVT Prophylaxis -- SCDs Lovenox Update medication list Discharge Planning Discharge patient to home Condition on discharge: Improved Regular Diet as tolerated Ad Alesia activity no driving Rx written: Keppra Follow-up with primary care physician in one week Jake Mazariegos MD Nov 15, 2016 11:11
[2016-11-15] MEDS ORDERED: LEVE500 PO (11:12)
--- NOTE | 2016-11-15 11:12 | HHI.DCPOC ---
Discharge Care Plan Diagnosis: (1) Seizure disorder Your Health Problems Are: Difficulty with ADL Exercise Tolerance Goals to Promote Your Health * To prevent worsening of your condition and complications * To maintain your health at the optimal level Directions to Meet Your Goals Take your medications as prescribed Follow your dietary instruction Follow activity as directed Keep your appointments as scheduled Take your immunizations and boosters as scheduled If your symptoms worsen call your PCP, if no PCP go to Urgent Care Center or Emergency Room Smoking is Dangerous to Your Health. Avoid second hand smoke Call the 24-hour hour crisis hotline for domestic abuse at Jake Mazariegos MD Nov 15, 2016 11:12
[2016-11-15 11:52] LABS: POTASSIUM 3.5 MEQ/L (3.5-5.1)
--- NOTE | 2016-11-15 13:08 | PD.PSY.CON ---
Provisional Diagnosis Admission Date Nov 14, 2016 at 15:01 [place]. Adjustment disorder History of Present Illness Service Psychiatry Consult Requested By Attending physician Reason for Consult Pseudoseizures Primary Care Physician No Primary Care Physician HPI Patient apparently had recorded pseudoseizure (with EEG documentation) during this hospitalization. This physician recommends the patient be seen by a psychiatrist on an outpatient basis. We generally do not admit individuals having pseudoseizures as this is rewarding to their inappropriate behavior and counter therapeutic. Review of Systems Except as stated in HPI: all other systems reviewed are Neg Past Family Social History Coded Allergies: erythromycin base (Unverified Allergy, Severe, Fever, 10/07/16) gabapentin (Unverified Allergy, Severe, Seizures, 10/07/16) ketorolac (Unverified Allergy, Severe, Urinary Freq (Inc/Dec), 10/07/16) ondansetron (Unverified Allergy, Severe, Twitching, 10/07/16) phenobarbital (Unverified Allergy, Severe, Seizures, 10/07/16) Patient states that she is not allergic to phenobarbital tramadol (Unverified Allergy, Severe, Urinary Freq (Inc/Dec), 10/07/16) metoclopramide (Unverified Adverse Reaction, Intermediate, 10/07/16) SHAKING *MDRO Multi-Drug Resistant Organism (Verified Adverse Reaction, Unknown, ) MRSA PCR screen positive - 04/23/2015 prochlorperazine (Unverified Adverse Reaction, Unknown, AGITATION, 10/14/16 ) Discontinued Reported Medications Levetiracetam (Keppra) 500 Mg Tab, 500 MG PO DAILY for Control Seizures, #60 TAB 0 Refills 09/07/16 Diphenhydramine (Diphenhydramine) 25 Mg Cap, 25 MG PO Q6H Y for ALLERGIES, CAP 0 Refills 09/06/16 Gabapentin (Gabapentin) 800 Mg Tab, 800 MG PO TID, #90 TAB 0 Refills 09/06/16 Zolpidem (Zolpidem) 5 Mg Tab, 5 MG PO HS Y for INSOMNIA, TAB 0 Refills 09/06/16 Escitalopram (Escitalopram) 20 Mg Tab, 20 MG PO DAILY, #30 TAB 0 Refills 09/06/16 Phenazopyridine (Phenazopyridine) 200 Mg Tab, 200 MG PO TID Y for AFTER MEALS, TAB 0 Refills 09/06/16 Sumatriptan (Sumatriptan) 50 Mg Tab, 50 MG PO ONCE Y for MIGRAINE HEADACHE, TAB 0 Refills If a satisfactory response has not been obtained at 2 hours, a second dose may be administered 09/06/16 Escitalopram (Escitalopram) 10 Mg Tab, 10 MG PO DAILY, #30 TAB 0 Refills 09/06/16 Hydrocodone-Acetaminophen (Hydrocodone-Acetaminophen) 10-325 mg Tab, 1 TAB PO Q6H Y for PAIN, TAB 0 Refills 09/06/16 Hydrocodone-Acetaminophen ([place]) 10-325 Mg Tab, 1 TAB PO Q6H Y for PAIN, TAB 0 Refills 04/23/16 Lurasidone (Latuda) 20 Mg Tab, 20 MG PO HS, #30 TAB 0 Refills 04/23/16 Escitalopram (Lexapro) 20 Mg Tab, 20 MG PO HS, #30 TAB 0 Refills 01/22/16 Acyclovir (Zovirax 800 Mg Tab) 800 Mg Tab, 800 MG PO BID, TAB 01/16/15 Clonazepam (Klonopin) 1 Mg Tab, 1 MG PO TID, TAB 01/15/15 Discontinued Scripts Potassium Phosphate Monobasic (K-Phos) 500 Mg Tab, 1000 MG PO Q12HR for Electrolyte Replacement, #6 TAB Prov:Jake Mazariegos MD 09/07/16 Levetiracetam (Keppra) 500 Mg Tab, 500 MG PO Q12H for Control Seizures, #60 TAB Prov:Jake Mazariegos MD 09/07/16 [Levetiracetam] 500 MG TAB No Conflict Check, 500 MG PO Q12HR for health, #30 TAB 0 Refills Prov:Christian Myers MD 07/18/16 Zolpidem (Ambien) 5 Mg Tab, 5 MG PO HS for health, #15 TAB Prov:Christian Myers MD 07/18/16 Tizanidine (Zanaflex) 4 Mg Tab, 4 MG PO HS for health, #15 TAB 0 Refills Prov:Christian Myers MD 07/18/16 Gabapentin (Neurontin) 300 Mg Cap, 600 MG PO TID for health, #45 CAP Prov:Christian Myers MD 07/18/16 Escitalopram (Escitalopram) 20 Mg Tab, 30 MG PO HS for health, #30 TAB 0 Refills Prov:Christian Myers MD 07/18/16 Clonazepam (Klonopin) 0.5 Mg Tab, 0.5 MG PO Q12HR for health, #30 TAB 0 Refills Prov:Christian Myers MD 07/18/16 Aripiprazole (Aripiprazole) 10 Mg Tab, 10 MG PO DAILY for health, #30 TAB 0 Refills Prov:Christian Myers MD 07/18/16 Levetiracetam (Keppra) 500 Mg Tab, 500 MG PO Q12HR for Seizure Control, #62 TAB Prov:Yan Whalen MD 07/15/16 Clonazepam (Klonopin) 0.5 Mg Tab, 0.5 MG PO Q12HR for Anxiety, #31 TAB Prov:Yan Whalen MD 07/15/16 Sumatriptan (Sumatriptan) 50 Mg Tab, 50 MG PO ONCE Y for MIGRAINE HEADACHE, #9 TAB 0 Refills If a satisfactory response has not been obtained at 2 hours, a second dose may be administered Prov:Chelsey Lilly 06/24/16 Acetaminophen (Acetaminophen Extra Strength) 500 Mg Cap, 1000 MG PO Q6H Y for PAIN SCALE 4 TO 10, #60 CAP 1 Refill Prov:Bg Garza MD 05/05/16 Promethazine (Phenergan) 25 Mg Tab, 25 MG PO Q6H Y for Nausea/Vomiting, #10 TAB 0 Refills Prov:Mary Anne Yoon MD 04/24/16 Methylprednisolone (Medrol Dosepak) 4 Mg Silvio, 4 MG PO DIRECTED, #1 SILVIO TAKE DIRECTED Prov:Natalie Smith 05/13/15 Amoxicillin & Pot Clavulanate 875 mg Tab (Augmentin 875 mg Tab) 875 Mg Tab, 1 TAB PO BID for 10 Days Prov:Natalie Smith 05/13/15 Lamotrigine (Lamictal) 100 Mg Tab, 100 MG PO Q12HR for seizures, #60 TAB Future refills by neurology. Prov:Shashi Rivers MD 02/21/15 Levetiracetam (Keppra) 500 Mg Tab, 1000 MG PO Q12H for seizures for 30 Days, TAB Prov:Tiara,Thendrex 01/16/15 Current Medications Medications (Trade) Dose Ordered Sig/Karley Route Start Time Stop Time Status Last Admin (NS Flush) 2 ml UNSCH PRN IV FLUSH 11/14/16 15:15 (NS Flush) 2 ml BID IV FLUSH 11/14/16 21:00 11/15/16 08:52 (Tylenol) 650 mg Q6H PRN PO 11/14/16 15:15 (Prevacid Odt) 30 mg DAILY G-TUBE 11/15/16 09:00 11/15/16 08:52 (Albuterol Neb) 2.5 mg Q2HR NEB PRN INH 11/14/16 15:15 Miscellaneous Information 1 Q361D XX 11/14/16 15:15 11/14/16 15:15 (Chlorhexidine 2% Cloth) 3 pack Taper DAILY@04 TOP 11/15/16 04:00 11/11/17 03:59 (Chlorhexidine 2% Cloth) 3 pack UNSCH PRN TOP 11/14/16 15:15 (Zoie-Colace) 1 tab BID PO 11/14/16 21:00 11/15/16 08:52 (Milk Of Magnesia Liq) 30 ml Q12H PRN PO 11/14/16 15:15 (Senokot) 17.2 mg Q12H PRN PO 11/14/16 15:15 (Dulcolax Supp) 10 mg DAILY PRN RECTAL 11/14/16 15:15 (Lactulose Liq) 30 ml DAILY PRN PO 11/14/16 15:15 (Lovenox Inj) 40 mg Q24H SQ 11/14/16 20:00 11/14/16 23:43 (Keppra) 500 mg Q12HR PO 11/15/16 21:00 Family History Positive for anxiety and depression. Social History Unemployed. Denies alcoholism or drug abuse. Patient's Strengths (min. 2) Verbal and has access to healthcare. Physical Exam Vital Signs Vital Signs Date Time Temp Pulse Resp B/P (MAP) Pulse Ox O2 Delivery O2 Flow Rate FiO2 11/15/16 08:00 55 11/15/16 08:00 98.4 20 116/70 (85) 99 11/15/16 07:24 Nasal Cannula 4.00 11/14/16 19:20 40 I/O 11/15/16 11/15/16 11/16/16 08:00 16:00 00:00 Intake Total 181.1 ml Output Total 220 ml Balance -38.9 ml Lab Results Test 11/14/16 13:45 11/14/16 14:31 11/14/16 17:00 11/15/16 11:15 Urine Opiates Screen POS Urine Barbiturates Screen NEG Urine Amphetamines Screen NEG Urine Benzodiazepines Screen NEG Urine Cocaine Screen NEG Urine Cannabinoids Screen NEG Blood Gas Puncture Site LT RADIAL Blood Gas Patient Temperature 98.6 Blood Gas HCO3 21 mmol/L Blood Gas Base Excess -2.4 mmol/L Blood Gas Oxygen Saturation 97 % Arterial Blood pH 7.42 Arterial Blood Partial Pressure CO2 34 mmHG Arterial Blood Partial Pressure O2 278 mmHG Arterial Blood Oxygen Content 16.9 Vol % Arterial Blood Carboxyhemoglobin 1.7 % Arterial Blood Methemoglobin 1.1 % Blood Gas Hemoglobin 11.9 G/DL Oxygen Delivery Device VENTILATOR Blood Gas Ventilator Setting VT550/RATE16/PEEP 5 Blood Gas Inspired Oxygen 100 % Nasal Screen MRSA (PCR) MRSA NOT DETECTED Blood Urea Nitrogen 9 MG/DL Creatinine 0.70 MG/DL Random Glucose 92 MG/DL Calcium Level 8.2 MG/DL Magnesium Level 2.0 MG/DL Sodium Level 140 MEQ/L Potassium Level 3.5 MEQ/L Chloride Level 109 MEQ/L Carbon Dioxide Level 25.0 MEQ/L Anion Gap 6 MEQ/L Estimat Glomerular Filtration Rate 98 ML/MIN Total Creatine Kinase 96 U/L Phenytoin (Dilantin) Level 10.9 MCG/ML Date/Time Source Procedure Growth Status 11/14/16 13:45 Urine Other Urine Culture Pending Received Mental Status Examination Speech: Unremarkable Orientation: x3 Memory: Unremarkable Thought Process: Organized, Goal Directed Thought Content: Unremarkable Hallucination Type: None Attention and Concentration: Good Suicidal Ideation: No Previous Suicide Attempts: No Homicidal Ideation: No Previous Homicide Attempts: No Insight: Fair Judgment: WNL Affect: Good Mood: Appropriate Motor Activity: Normal gait Assessment & Plan Problem List: (1) Adjustment disorder with mixed disturbance of emotions and conduct ICD Codes: F43.25 - Adjustment disorder with mixed disturbance of emotions and conduct Assessment & Plan Estimated LOS: days recommend discharge with psychiatric follow up on outpatient basis. Andrew Kilgore MD Nov 15, 2016 13:08
--- NOTE | 2016-11-15 14:55 | EKG ---
Date Performed: 11/14/2016 Time Performed: 15:32:23 PTAGE: 31 years EKG: Sinus rhythm NORMAL ECG PREVIOUS TRACING : 01/14/2015 16.33 Since previous tracing, no significant change. DOCTOR: Andrew Pena Interpretating Date/Time 11/15/2016 14:53:49
[2016-11-15] MEDS ORDERED: levETIRAcetam 500 MG TAB PO SCH (21:00)
--- NOTE | 2016-11-15 21:40 | MG ---
cc: ARTHUR THOMPSON MD Lab No: Date: 11/15/16 Age: 31 Sex: F Race: REFERRING PHYSICIAN Dr. Vinson An EEG was obtained on this 31-year-old patient being evaluated for seizures. The patient is described as awake and asleep, following commands. MEDICATIONS Keppra. Prevacid. The EEG shows a lot of asleep features. There are beta rhythms and sleepy spindles diffusely. There is some intermixed theta activity. The study also shows some K complexes. The patient awakens and there are artifact along with some alpha rhythms posteriorly. The patient seems to fall back asleep quickly. Photic stimulation showed some driving response bilaterally. INTERPRETATION Normal predominantly asleep EEG. Arthur Thompson MD [facility] /9:04 PM /9:35 PM
== END 2016-11-15 15:10 | disposition home or self-care (01) | DRG 100 ==
LOC: PHED 12:52 → PHEDA 15:01 → HIME 16:45
PROVIDERS: ADMIT Anesthesiology; ATTEND Internal Medicine
PROC: 0BH17EZ Insertion of Endotracheal Airway into Trachea, Via Natural or Artificial Opening (ICD-10-PCS; principal; 2016-11-14)
PROC: 5A1935Z Respiratory Ventilation, Less than 24 Consecutive Hours (ICD-10-PCS; 2016-11-14)
DX: G40.901 Epilepsy, unspecified, not intractable, with status epilepticus (principal); J96.00 Acute respiratory failure, unspecified whether with hypoxia or hypercapnia; F31.9 Bipolar disorder, unspecified; Z91.14 Patient's other noncompliance with medication regimen; Z85.41 Personal history of malignant neoplasm of cervix uteri; Z72.0 Tobacco use; Z88.1 Allergy status to other antibiotic agents; Z88.8 Allergy status to other drugs, medicaments and biological substances
CPT/HCPCS: 31500; 36600; 51702; 70450; 71010; 76937; 80048; 80185; 80307; 82550; 82805; 82948; 83735; 84100; 84702; 85025; 87086; 87641; 93005; 94002; 94150; 94640; 94664; 94667; 95819; 96365; 96366; 96368; 96375; 99292; J0330; J1165; J1650; J1953; J2060; J2250; J7030; J7050

== ENCOUNTER 2016-11-20 00:59 | Emergency (ER) | payer OTHER ==
[~2016-11-20] VITALS: Ht 170.2 cm; Wt 125.0 kg
[~2016-11-20 00:59] MED LIST changes: -ACYC-1 PO; -AMBI5TAB PO; -ARIP1TAB12 PO; -AUGM875T PO; -CLON.5 PO; -CLON1 PO; -DIPH25CA PO; -ESCI10TA PO; -ESCI20TA PO; -EXTR500C PO; -GABA800T PO; -HYDR-3366 PO; -HYDR-3583 PO; -K-PHTAB PO; -LAMO100 PO; -LEXA20TA PO; -LURA20TA PO; -MEDR4PAK3 PO; -NEUR300C PO; -PHEN-430 PO; -PROM25TA5 PO; -SUMA50TA2 PO; -TIZA4 PO; -ZOLP5TAB3 PO; -levETIRAcetam PO
[2016-11-20 01:01] VITALS: BP 146/85; PULSE 76; RESP 16; TEMP 98.6; O2SAT 100
[2016-11-20] MEDS ORDERED: LEXA20TA PO (01:31)
[2016-11-20] MEDS ORDERED: LEXA10TA PO (01:31)
[2016-11-20] MEDS ORDERED: TIZA4TAB PO (01:34)
[2016-11-20] MEDS ORDERED: IMIT100T PO (01:34)
[2016-11-20] MEDS ORDERED: GABA800T PO (01:34)
[2016-11-20] MEDS ORDERED: AMBI5TAB PO (01:34)
[2016-11-20] MEDS ORDERED: HYDR-3583 PO (01:34)
--- NOTE | 2016-11-20 01:37 | PD ---
HPI Chief Complaint: Headache Time Seen by Provider: 01:33 Travel History International Travel<30 days: No Contact w/Intl Traveler<30days: No Traveled to known affect area: No History of Present Illness HPI C/O DONALD, GENERALIZED, 10/02, H/O MIGRAINE, ON IMITREX, TRIED TAKING SOME OF THAT PRIOR TO ARRIVAL AND STILL HAS DONALD PFSH Past Medical History Arthritis: No Autoimmune Disease: No Blood Disorders: No Bipolar Disorder: Yes Anxiety: Yes Depression: Yes Cancer: Yes (cervical cancer - removed) Cardiovascular Problems: No Chemotherapy: No Cerebrovascular Accident: No Diabetes: No Diminished Hearing: No Endocrine: No Gastrointestinal Disorders: Yes (nausea all the time) GERD: Yes Genitourinary: No Headaches: Yes Immune Disorder: No Implanted Vascular Access Dvce: No Kidney Stones: Yes (passed stone in 2011) Musculoskeletal: Yes (back pain) Psychiatric: Yes (Bipolar, ptsd, multiple personalties) Reproductive: Yes Immunizations Current: Yes Migraines: Yes Radiation Therapy: No Seizures: Yes Thyroid Disease: No Ulcer: Yes (PEPTIC) ?: Not : 0 Para: 0 Miscarriage: 0 : 0 Ovarian Cysts: Yes (3 lap surgeries) Past Surgical History Abdominal Surgery: Yes (gallbladder removed, tonsils and adenoids removed) Cardiac Surgery: No Cholecystectomy: Yes Ear Surgery: No Endocrine Surgery: No Eye Surgery: Yes (left eye surgeries X3 (lazy eye)) Genitourinary Surgery: No Gynecologic Surgery: Yes Neurologic Surgery: No Oral Surgery: No Thoracic Surgery: No Other Surgery: Yes (cervical leep) Social History Alcohol Use: Yes (OCC) Tobacco Use: No (VAPE past hx) Substance Use: No Allergies-Medications (Allergen,Severity, Reaction): Coded Allergies: erythromycin base (Unverified Allergy, Severe, Fever, 11/20/16) gabapentin (Unverified Allergy, Severe, Seizures, 11/20/16) ketorolac (Unverified Allergy, Severe, Urinary Freq (Inc/Dec), 11/20/16) ondansetron (Unverified Allergy, Severe, Twitching, 11/20/16) phenobarbital (Unverified Allergy, Severe, Seizures, 11/20/16) Patient states that she is not allergic to phenobarbital tramadol (Unverified Allergy, Severe, Urinary Freq (Inc/Dec), 11/20/16) metoclopramide (Unverified Adverse Reaction, Intermediate, 11/20/16) SHAKING *MDRO Multi-Drug Resistant Organism (Verified Adverse Reaction, Unknown, ) MRSA PCR screen positive - 04/23/2015 prochlorperazine (Unverified Adverse Reaction, Unknown, AGITATION, 11/20/16 ) Reported Meds & Prescriptions Reported Meds & Active Scripts Active Keppra (Levetiracetam) 500 Mg Tab 500 Mg PO Q12HR Reported Lexapro (Escitalopram Oxalate) 20 Mg Tab 20 Mg PO DAILY Lexapro (Escitalopram Oxalate) 10 Mg Tab 10 Mg PO DAILY Review of Systems Except as stated in HPI: all other systems reviewed are Neg HENT: Positive: Headaches Physical Exam Narrative GENERAL: SKIN: Warm and dry. HEAD: Atraumatic. Normocephalic. EYES: Pupils equal and round. No scleral icterus. No injection or drainage. ENT: No nasal bleeding or discharge. Mucous membranes pink and moist. NECK: Trachea midline. No JVD. CARDIOVASCULAR: Regular rate and rhythm. RESPIRATORY: No accessory muscle use. Clear to auscultation. Breath sounds equal bilaterally. GASTROINTESTINAL: Abdomen soft, non-tender, nondistended. MUSCULOSKELETAL: Extremities without clubbing, cyanosis, or edema. No obvious deformities. NEUROLOGICAL: Awake and alert. No obvious cranial nerve deficits. Motor grossly within normal limits. Five out of 5 muscle strength in the arms and legs. Normal speech. PSYCHIATRIC: Appropriate mood and affect; insight and judgment normal. Data Data Last Documented VS Vital Signs Date Time Temp Pulse Resp B/P (MAP) Pulse Ox O2 Delivery O2 Flow Rate FiO2 11/20/16 01:01 98.6 76 16 146/85 (105) 100 Room Air MDM Medical Decision Making Medical Screen Exam Complete: Yes Emergency Medical Condition: Yes Medical Record Reviewed: Yes Differential Diagnosis TENSION DONALD V SINUS V MIGRAINE Narrative Course PATIENT HAD A RECENT CT HEAD ON NOV 14, IN WHICH NO ICH NOTED BUT SOME CHRONIC SINUSITIS, NO ICH AND NO MASS. NO NEED TO REPEAT CT HEAD FOR DONALD THAT IS TYPICAL OF HER USUAL DONALD. Diagnosis Primary Impression: Headache Qualified Codes: G44.209 - Tension-type headache, unspecified, not intractable Disposition: DISCHARGE HOME Condition: Stable Wild Kirk MD Nov 20, 2016 01:37
[2016-11-20] MEDS ORDERED: HYDROmorphone HCL PF 1 MG/ML VIAL IM ONE (02:00)
[2016-11-20] MEDS ORDERED: PROMETHAZINE INJ 25 MG/ML VIAL IM ONE (02:00)
== END 2016-11-20 04:43 | disposition home or self-care (01) ==
LOC: NEPE 00:59
DX: G44.209 Tension-type headache, unspecified, not intractable (principal); Z86.59 Personal history of other mental and behavioral disorders; Z87.19 Personal history of other diseases of the digestive system; Z87.442 Personal history of urinary calculi; Z87.39 Personal history of other diseases of the musculoskeletal system and connective tissue; Z86.69 Personal history of other diseases of the nervous system and sense organs
CPT/HCPCS: 96372; 99284; J1170; J2550

== ENCOUNTER 2016-11-22 18:57 | Emergency (ER) | payer OTHER ==
[~2016-11-22] VITALS: Ht 167.6 cm; Wt 136.0 kg
[~2016-11-22 18:57] MED LIST changes: +AMBI5TAB PO; +GABA800T PO; +HYDR-3583 PO; +IMIT100T PO; +LEXA10TA PO; +LEXA20TA PO; +TIZA4TAB PO
[2016-11-22 20:12] VITALS: BP 138/82; PULSE 81; RESP 16; TEMP 98.5
[2016-11-22] MEDS ORDERED: PROMETHAZINE INJ 25 MG/ML VIAL IM ONE (20:30)
[2016-11-22] MEDS ORDERED: SODIUM CHLOR 0.9% 1000 ML INJ 1,000 ML IV ONE (20:30)
[2016-11-22] MEDS ORDERED: diphenhydrAMINE HCL 50 MG/ML VIAL IV PUSH ONE (20:30)
[2016-11-22] MEDS ORDERED: levETIRAcetam 1000 MG INJ 100 ML IV ONE (20:30)
[2016-11-22] MEDS ORDERED: ACETAMINOPHEN 325 MG TAB PO ONE (20:30)
--- NOTE | 2016-11-22 20:41 | PD ---
HPI Chief Complaint: Seizure Time Seen by Provider: 20:12 Travel History International Travel<30 days: No Contact w/Intl Traveler<30days: No Traveled to known affect area: No History of Present Illness HPI Patient is a 31-year-old female who comes in after reported seizure. She says she was watching TV on the couch and she had a seizure. She says she has not had Keppra since Thursday. She also complains of a migraine headache. She says her headache is typical of migraines she has had in the past. She was seen here 2 days ago for this, and she said it went away for 8 hours, but then came back. She says she took her last hydrocodone today. She denies hitting her head. She denies nausea or vomiting. She denies fever or chills. PFSH Past Medical History Arthritis: No Autoimmune Disease: No Blood Disorders: No Bipolar Disorder: Yes Anxiety: Yes Depression: Yes Cancer: Yes (cervical cancer - removed) Cardiovascular Problems: No Chemotherapy: No Cerebrovascular Accident: No Diabetes: No Diminished Hearing: No Endocrine: No Gastrointestinal Disorders: Yes (nausea all the time) GERD: Yes Genitourinary: No Headaches: Yes Immune Disorder: No Implanted Vascular Access Dvce: No Kidney Stones: Yes (passed stone in 2011) Musculoskeletal: Yes (back pain) Psychiatric: Yes (Bipolar, ptsd, multiple personalties) Reproductive: Yes Immunizations Current: Yes Migraines: Yes Radiation Therapy: No Seizures: Yes Thyroid Disease: No Ulcer: Yes (PEPTIC) ?: Not : 0 Para: 0 Miscarriage: 0 : 0 Ovarian Cysts: Yes (3 lap surgeries) Past Surgical History Abdominal Surgery: Yes (gallbladder removed, tonsils and adenoids removed) Cardiac Surgery: No Cholecystectomy: Yes Ear Surgery: No Endocrine Surgery: No Eye Surgery: Yes (left eye surgeries X3 (lazy eye)) Genitourinary Surgery: No Gynecologic Surgery: Yes Neurologic Surgery: No Oral Surgery: No Thoracic Surgery: No Other Surgery: Yes (cervical leep) Social History Alcohol Use: Yes (OCC) Tobacco Use: No (VAPE past hx) Substance Use: No Allergies-Medications (Allergen,Severity, Reaction): Coded Allergies: erythromycin base (Unverified Allergy, Severe, Fever, 11/20/16) gabapentin (Unverified Allergy, Severe, Seizures, 11/20/16) ketorolac (Unverified Allergy, Severe, Urinary Freq (Inc/Dec), 11/20/16) ondansetron (Unverified Allergy, Severe, Twitching, 11/20/16) phenobarbital (Unverified Allergy, Severe, Seizures, 11/20/16) Patient states that she is not allergic to phenobarbital tramadol (Unverified Allergy, Severe, Urinary Freq (Inc/Dec), 11/20/16) metoclopramide (Unverified Adverse Reaction, Intermediate, 11/20/16) SHAKING *MDRO Multi-Drug Resistant Organism (Verified Adverse Reaction, Unknown, ) MRSA PCR screen positive - 04/23/2015 prochlorperazine (Unverified Adverse Reaction, Unknown, AGITATION, 11/20/16 ) Reported Meds & Prescriptions Reported Meds & Active Scripts Active Keppra (Levetiracetam) 500 Mg Tab 500 Mg PO Q12HR Reported Imitrex (Sumatriptan Succinate) 100 Mg Tab 100 Mg PO ONCE PRN If a satisfactory response has not been obtained at 2 hours, a second dose may be administered Hydrocodone-Acetaminophen 10-325 mg Tab 1 Tab PO Q4H PRN Gabapentin 800 Mg Tab 800 Mg PO TID Tizanidine (Tizanidine HCl) 4 Mg Tab 4 Mg PO HS Ambien (Zolpidem Tartrate) 5 Mg Tab 5 Mg PO HS PRN Lexapro (Escitalopram Oxalate) 20 Mg Tab 20 Mg PO DAILY Lexapro (Escitalopram Oxalate) 10 Mg Tab 10 Mg PO DAILY Review of Systems Except as stated in HPI: all other systems reviewed are Neg General / Constitutional: No: Fever, Chills Eyes: No: Blurred Vision HENT: Positive: Headaches Cardiovascular: No: Chest Pain or Discomfort Respiratory: No: Shortness of Breath Gastrointestinal: No: Nausea, Vomiting Genitourinary: No: Dysuria Skin: No Rash, No Change in Pigmentation, No Lesions Neurologic: Positive: Seizures, No: Weakness, Dizziness Physical Exam Narrative GENERAL: Awake and alert, in no acute distress. SKIN: Focused skin assessment warm/dry. HEAD: Atraumatic. Normocephalic. EYES: Pupils equal and round. No scleral icterus. Extraocular movements intact. ENT: Mucous membranes pink and moist. NECK: Trachea midline. No JVD. CARDIOVASCULAR: Regular rate and rhythm. No murmur appreciated. RESPIRATORY: No accessory muscle use. Clear to auscultation. Breath sounds equal bilaterally. GASTROINTESTINAL: Abdomen soft, non-tender, nondistended. MUSCULOSKELETAL: No obvious deformities. No clubbing. No cyanosis. No edema. NEUROLOGICAL: Awake and alert. No obvious cranial nerve deficits. Motor grossly within normal limits. Normal speech. PSYCHIATRIC: Appropriate mood and affect; insight and judgment normal. Data Data Last Documented VS Vital Signs Date Time Temp Pulse Resp B/P (MAP) Pulse Ox O2 Delivery O2 Flow Rate FiO2 11/22/16 22:27 16 11/22/16 20:15 80 11/22/16 20:12 98.5 138/82 (100) Orders Orders Iv Access Insert/Monitor (11/22/16 20:20) Complete Blood Count With Diff (11/22/16 20:20) Comprehensive Metabolic Panel (11/22/16 20:20) Acetaminophen (Tylenol) (11/22/16 20:30) Diphenhydramine Inj (Benadryl Inj) (11/22/16 20:30) Sodium Chlor 0.9% 1000 Ml Inj (Ns 1000 M (11/22/16 20:30) Promethazine Inj (Phenergan Inj) (11/22/16 20:30) Levetiracetam 1000 Mg Inj (Keppra 1000 M (11/22/16 20:30) Diphenhydramine (Benadryl) (11/22/16 21:15) Promethazine (Phenergan) (11/22/16 21:15) Levetiracetam (Keppra) (11/22/16 21:15) [id number]-[id number]-Pibf 325-50-40 Mg (Fioricet 3 (11/22/16 22:30) Labs Laboratory Tests Test 11/22/16 20:39 White Blood Count 12.9 TH/MM3 Red Blood Count 4.89 MIL/MM3 Hemoglobin 14.8 GM/DL Hematocrit 43.7 % Mean Corpuscular Volume 89.3 FL Mean Corpuscular Hemoglobin 30.2 PG Mean Corpuscular Hemoglobin Concent 33.8 % Red Cell Distribution Width 13.4 % Platelet Count 361 TH/MM3 Mean Platelet Volume 9.1 FL Neutrophils (%) (Auto) 76.9 % Lymphocytes (%) (Auto) 18.0 % Monocytes (%) (Auto) 3.6 % Eosinophils (%) (Auto) 0.9 % Basophils (%) (Auto) 0.6 % Neutrophils # (Auto) 9.9 TH/MM3 Lymphocytes # (Auto) 2.3 TH/MM3 Monocytes # (Auto) 0.5 TH/MM3 Eosinophils # (Auto) 0.1 TH/MM3 Basophils # (Auto) 0.1 TH/MM3 CBC Comment AUTO DIFF Differential Comment AUTO DIFF CONFIRMED Blood Urea Nitrogen 8 MG/DL Creatinine 0.76 MG/DL Random Glucose 85 MG/DL Total Protein 9.0 GM/DL Albumin 4.1 GM/DL Calcium Level 9.1 MG/DL Alkaline Phosphatase 118 U/L Aspartate Amino Transf (AST/SGOT) 26 U/L Alanine Aminotransferase (ALT/SGPT) 20 U/L Total Bilirubin 0.3 MG/DL Sodium Level 138 MEQ/L Potassium Level 4.0 MEQ/L Chloride Level 106 MEQ/L Carbon Dioxide Level 24.9 MEQ/L Anion Gap 7 MEQ/L Estimat Glomerular Filtration Rate 89 ML/MIN MDM Medical Decision Making Medical Screen Exam Complete: Yes Emergency Medical Condition: Yes Medical Record Reviewed: Yes Differential Diagnosis Breakthrough seizure versus due to seizure versus electrolyte abnormality versus migraine Narrative Course Patient is a 31-year-old female comes in after seizure. She reports not having her Keppra since Thursday. She also complains of a migraine. Labs sent show no acute abnormalities. Patient given by mouth Benadryl, Phenergan, Tylenol. She reports no improvement of her headache. She was also given 1 g of Keppra. Given Fioricet which resolved her symptoms. She'll be discharged with a prescription for Fioricet. She is advised follow-up with her doctors. Advised to take her Keppra as directed. Advised to return to the ED as needed for any worsening symptoms. Diagnosis Primary Impression: Seizure Additional Impression: Migraine headache Qualified Codes: G43.009 - Migraine without aura, not intractable, without status migrainosus Patient Instructions: Acute Headache (ED), General Instructions, Recurrent Seizures in Adults (ED) Additional Instructions: Take her Keppra as prescribed. Take Fioricet for severe headaches. Follow-up with your primary care doctor. Return to the ED as needed for any worsening symptoms. Scripts [id number]-Mvctcnae (Fioricet) 50-300-40 Mg Cap 1 CAP PO Q4H Y for HEADACHE, #14 CAP 0 Refills Prov: Adriana Wagner MD 11/22/16 Disposition: 01 DISCHARGE HOME Condition: Stable Adriana Wagner MD Nov 22, 2016 20:41
[2016-11-22 20:54] LABS: AUTOMATED NEUTROPHIL # 9.9 TH/MM3 (1.8-7.7); BASOPHIL # 0.1 TH/MM3 (0-0.2); BASOPHIL % 0.6 % (0.0-2.0); EOSINOPHIL # 0.1 TH/MM3 (0-0.4); EOSINOPHIL % 0.9 % (0.0-4.0); HEMATOCRIT 43.7 % (35.0-46.0); LYMPHOCYTE # 2.3 TH/MM3 (1.0-4.8); MEAN CELL VOLUME 89.3 FL (80.0-100.0); MEAN CORPUSCULAR HEMOGLOBIN 30.2 PG (27.0-34.0); MEAN CORPUSCULAR HGB CONC 33.8 % (32.0-36.0); MONO % 3.6 % (0.0-8.0); NEUT % 76.9 % (16.0-70.0); PLATELET COUNT 361 TH/MM3 (150-450); RED BLOOD COUNT 4.89 MIL/MM3 (4.00-5.30); RED CELL DISTRIBUTION WIDTH 13.4 % (11.6-17.2); WHITE BLOOD COUNT 12.9 TH/MM3 (4.0-11.0)
[2016-11-22 21:11] LABS: HEMO FLAGS AUTO DIFF
[2016-11-22] MEDS ORDERED: levETIRAcetam 500 MG TAB PO ONE (21:15)
[2016-11-22] MEDS ORDERED: PROMETHAZINE HCL 25 MG TAB PO ONE (21:15)
[2016-11-22] MEDS ORDERED: diphenhydrAMINE HCL 25 MG CAP PO ONE (21:15)
[2016-11-22 21:17] LABS: ALT (GPT) 20 U/L (10-53)
[2016-11-22 21:19] LABS: ALKALINE PHOSPHATASE 118 U/L (45-117); TOTAL BILIRUBIN ADULT 0.3 MG/DL (0.2-1.0)
[2016-11-22 21:23] LABS: ANION GAP 7 MEQ/L (5-15); AST (GOT) 26 U/L (15-37); BICARBONATE 24.9 MEQ/L (21.0-32.0); BLOOD UREA NITROGEN 8 MG/DL (7-18); CHLORIDE 106 MEQ/L (98-107); GLOMERULAR FILTRATION RATE 89 ML/MIN (>89); SODIUM (NA) 138 MEQ/L (136-145)
[2016-11-22 21:39] LABS: SCAN/DIFF AUTO DIFF CONFIRMED
[2016-11-22 22:27] VITALS: RESP 16
[2016-11-22] MEDS ORDERED: ACETAMIN 325 MG/BUTALBITAL 50 MG/CAFFEINE 40 MG TAB PO ONE (22:30)
[2016-11-22] MEDS ORDERED: BUTA1CAP PO (22:56)
== END 2016-11-22 23:07 | disposition home or self-care (01) ==
LOC: NEPD 18:57
DX: R56.9 Unspecified convulsions (principal); G43.909 Migraine, unspecified, not intractable, without status migrainosus; F31.9 Bipolar disorder, unspecified; K21.9 Gastro-esophageal reflux disease without esophagitis; F43.10 Post-traumatic stress disorder, unspecified; Z85.41 Personal history of malignant neoplasm of cervix uteri; Z87.442 Personal history of urinary calculi; Z79.899 Other long term (current) drug therapy; Z88.5 Allergy status to narcotic agent
CPT/HCPCS: 80053; 85025; 99283; Q0169

== ENCOUNTER 2016-12-18 14:47 | Emergency (ER) | payer OTHER ==
[~2016-12-18] VITALS: Ht 167.6 cm; Wt 159.0 kg
[~2016-12-18 14:47] MED LIST changes: +BUTA1CAP PO
[2016-12-18 15:11] VITALS: BP 138/88; PULSE 68; RESP 19; TEMP 98.8; O2SAT 100
[2016-12-18] MEDS ORDERED: SODIUM CHLORIDE 0.9% FLUSH 10 ML FLUSH IVF PRN ×2 (15:15)
[2016-12-18] MEDS ORDERED: LORazepam 2 MG/ML VIAL IM ONE ×2 (15:15)
[2016-12-18] MEDS ORDERED: levETIRAcetam 1000 MG INJ 100 ML IV ONE ×2 (15:15)
[2016-12-18 15:27] VITALS: BP 141/81; PULSE 64; RESP 16; O2SAT 100
--- NOTE | 2016-12-18 15:56 | PD ---
HPI Chief Complaint: Seizure Time Seen by Provider: 15:12 Travel History International Travel<30 days: No Contact w/Intl Traveler<30days: No Traveled to known affect area: No History of Present Illness HPI This is a 31-year-old female well-known to this emerged from in with a history of psychogenic seizures, and presents here with a reported history of seizure. The patient was probably at her GYNs office when she had 2 witnessed tonic- clonic episodes. EMS result arrived they found the patient awake and alert and appropriate. When she was being registered and on the back and wants wall, she had another witnessed tonic-clonic episode. This lasted roughly 2 minutes. After the episode, the patient was awake and alert and appropriate answering questions. She reports she's been off her Keppra for a few days. She states that secondary to her migraine headaches. There are no other complaints time my examination. Please note this patient has had multiple EEGs and there has been no focal seizure activity noted. PFSH Past Medical History Arthritis: No Autoimmune Disease: No Blood Disorders: No Bipolar Disorder: Yes Anxiety: Yes Depression: Yes Cancer: Yes (cervical cancer - removed) Cardiovascular Problems: No Chemotherapy: No Cerebrovascular Accident: No Diabetes: No Diminished Hearing: No Endocrine: No Gastrointestinal Disorders: Yes (nausea all the time) GERD: Yes Genitourinary: No Headaches: Yes Immune Disorder: No Implanted Vascular Access Dvce: No Kidney Stones: Yes (passed stone in 2011) Musculoskeletal: Yes (back pain) Psychiatric: Yes (Bipolar, ptsd, multiple personalties) Reproductive: Yes Immunizations Current: Yes Migraines: Yes Radiation Therapy: No Seizures: Yes Thyroid Disease: No Ulcer: Yes (PEPTIC) ?: Unknown : 0 Para: 0 Miscarriage: 0 : 0 Ovarian Cysts: Yes (3 lap surgeries) Past Surgical History Abdominal Surgery: Yes (gallbladder removed, tonsils and adenoids removed) Cardiac Surgery: No Cholecystectomy: Yes Ear Surgery: No Endocrine Surgery: No Eye Surgery: Yes (left eye surgeries X3 (lazy eye)) Genitourinary Surgery: No Gynecologic Surgery: Yes Neurologic Surgery: No Oral Surgery: No Thoracic Surgery: No Other Surgery: Yes (cervical leep) Social History Alcohol Use: No Tobacco Use: No Substance Use: No Allergies-Medications (Allergen,Severity, Reaction): Coded Allergies: erythromycin base (Unverified Allergy, Severe, Fever, 11/20/16) gabapentin (Unverified Allergy, Severe, Seizures, 11/20/16) ketorolac (Unverified Allergy, Severe, Urinary Freq (Inc/Dec), 11/20/16) ondansetron (Unverified Allergy, Severe, Twitching, 11/20/16) phenobarbital (Unverified Allergy, Severe, Seizures, 11/20/16) Patient states that she is not allergic to phenobarbital tramadol (Unverified Allergy, Severe, Urinary Freq (Inc/Dec), 11/20/16) metoclopramide (Unverified Adverse Reaction, Intermediate, 11/20/16) SHAKING *MDRO Multi-Drug Resistant Organism (Verified Adverse Reaction, Unknown, ) MRSA PCR screen positive - 04/23/2015 prochlorperazine (Unverified Adverse Reaction, Unknown, AGITATION, 11/20/16 ) Reported Meds & Prescriptions Reported Meds & Active Scripts Active Fioricet (Nplvcawkcv-Eygpfngvnkxpm-Wraygsqu) 50-300-40 Mg Cap 1 Cap PO Q4H PRN Keppra (Levetiracetam) 500 Mg Tab 500 Mg PO Q12HR Reported Imitrex (Sumatriptan Succinate) 100 Mg Tab 100 Mg PO ONCE PRN If a satisfactory response has not been obtained at 2 hours, a second dose may be administered Hydrocodone-Acetaminophen 10-325 mg Tab 1 Tab PO Q4H PRN Gabapentin 800 Mg Tab 800 Mg PO TID Tizanidine (Tizanidine HCl) 4 Mg Tab 4 Mg PO HS Ambien (Zolpidem Tartrate) 5 Mg Tab 5 Mg PO HS PRN Lexapro (Escitalopram Oxalate) 20 Mg Tab 20 Mg PO DAILY Lexapro (Escitalopram Oxalate) 10 Mg Tab 10 Mg PO DAILY Review of Systems Except as stated in HPI: all other systems reviewed are Neg General / Constitutional: No: Fever, Chills HENT: No: Headaches, Neck Pain Cardiovascular: No: Chest Pain or Discomfort, Palpitations Respiratory: No: Cough, Shortness of Breath Gastrointestinal: No: Nausea, Vomiting, Abdominal Pain Musculoskeletal: No: Pain Neurologic: Positive: Headache (migraine), Seizures (tonic-clonic activity. Patient has a history of psychogenic seizure disorder), No: Weakness Physical Exam Narrative GENERAL: Well-developed well-nourished female who is having active tonic-clonic activity. This lasted roughly 2 minutes. SKIN: Focused skin assessment warm/dry. HEAD: Atraumatic. Normocephalic. EYES: Pupils equal and round. No scleral icterus. No injection or drainage. ENT: No nasal bleeding or discharge. Mucous membranes pink and moist. No back tongue. NECK: Trachea midline. Supple. CARDIOVASCULAR: Regular rate and rhythm. No murmur appreciated. RESPIRATORY: No accessory muscle use. Clear to auscultation. Breath sounds equal bilaterally. GASTROINTESTINAL: Abdomen soft, non-tender, nondistended. Hepatic and splenic margins not palpable. MUSCULOSKELETAL: No obvious deformities. No clubbing. No cyanosis. No edema. NEUROLOGICAL: Awake and alert after tonic-clonic activity.. No obvious cranial nerve deficits. Motor grossly within normal limits. Normal speech. PSYCHIATRIC: Appropriate mood and affect; insight and judgment normal. Data Data Last Documented VS Vital Signs Date Time Temp Pulse Resp B/P (MAP) Pulse Ox O2 Delivery O2 Flow Rate FiO2 12/18/16 18:11 75 16 123/70 (87) 100 Room Air 12/18/16 15:27 10.00 12/18/16 15:11 98.8 Orders Orders Complete Blood Count With Diff (12/18/16 15:12) Basic Metabolic Panel (Bmp) (12/18/16 15:12) Drug Screen, Random Urine (12/18/16 15:12) Blood Glucose (12/18/16 15:12) Ecg Monitoring (12/18/16 15:12) Iv Access Insert/Monitor (12/18/16 15:12) Oximetry (12/18/16 15:12) Sodium Chloride 0.9% Flush (Ns Flush) (12/18/16 15:15) Lorazepam Inj (Ativan Inj) (12/18/16 15:15) Levetiracetam 1000 Mg Inj (Keppra 1000 M (12/18/16 15:15) Vascular Access Team Consult/P PRN (12/18/16 16:11) Vascular Poc Ultrasound (12/18/16 ) Acetaminophen (Tylenol) (12/18/16 18:45) Labs Laboratory Tests Test 12/18/16 16:30 12/18/16 18:00 White Blood Count 14.3 TH/MM3 Red Blood Count 4.41 MIL/MM3 Hemoglobin 13.1 GM/DL Hematocrit 39.4 % Mean Corpuscular Volume 89.3 FL Mean Corpuscular Hemoglobin 29.8 PG Mean Corpuscular Hemoglobin Concent 33.3 % Red Cell Distribution Width 13.4 % Platelet Count 356 TH/MM3 Mean Platelet Volume 8.9 FL Neutrophils (%) (Auto) 79.0 % Lymphocytes (%) (Auto) 15.2 % Monocytes (%) (Auto) 4.7 % Eosinophils (%) (Auto) 0.7 % Basophils (%) (Auto) 0.4 % Neutrophils # (Auto) 11.3 TH/MM3 Lymphocytes # (Auto) 2.2 TH/MM3 Monocytes # (Auto) 0.7 TH/MM3 Eosinophils # (Auto) 0.1 TH/MM3 Basophils # (Auto) 0.1 TH/MM3 CBC Comment DIFF FINAL Differential Comment Blood Urea Nitrogen 12 MG/DL Creatinine 0.79 MG/DL Random Glucose 104 MG/DL Calcium Level 8.6 MG/DL Sodium Level 137 MEQ/L Potassium Level 3.7 MEQ/L Chloride Level 104 MEQ/L Carbon Dioxide Level 25.9 MEQ/L Anion Gap 7 MEQ/L Estimat Glomerular Filtration Rate 85 ML/MIN Urine Opiates Screen NEG Urine Barbiturates Screen NEG Urine Amphetamines Screen NEG Urine Benzodiazepines Screen NEG Urine Cocaine Screen NEG Urine Cannabinoids Screen NEG MDM Medical Decision Making Medical Screen Exam Complete: Yes Emergency Medical Condition: Yes Differential Diagnosis Seizure versus pseudoseizure versus syncope Narrative Course Year-old female with a history of seizure-like activity with previous normal EEGs, who is been seen here multiple times for the same, presents here after having seizure-like activity while at her [employer]ILY [employer]'s office. The patient had one witnessed episode here of the seizure-like activity. Patient, on Keppra. She states she has not taken over last couple days because she's had a migraine headache. She was given 2 mg of Ativan. She's been observed for several hours and has had no further seizure activity. She still has the migraine headache which she's been given Tylenol. She's also been loaded with Keppra 1000 mg I V times one dose. She'll be discharged home told to continue her Keppra. She'll also be instructed to follow up with her neurologist as needed. Diagnosis Primary Impression: Seizure-like activity Additional Impression: Migraine headache Additional Instructions: Take Keppra as prescribed. Follow up within neurologist. Disposition: 01 DISCHARGE HOME Condition: Stable Elijah Vizcarra MD Dec 18, 2016 15:56
[2016-12-18 16:53] LABS: AUTOMATED NEUTROPHIL # 11.3 TH/MM3 (1.8-7.7); BASOPHIL # 0.1 TH/MM3 (0-0.2); BASOPHIL % 0.4 % (0.0-2.0); EOSINOPHIL # 0.1 TH/MM3 (0-0.4); EOSINOPHIL % 0.7 % (0.0-4.0); HEMATOCRIT 39.4 % (35.0-46.0); HEMOGLOBIN 13.1 GM/DL (11.6-15.3); LYMPH % 15.2 % (9.0-44.0); LYMPHOCYTE # 2.2 TH/MM3 (1.0-4.8); MEAN CELL VOLUME 89.3 FL (80.0-100.0); MEAN CORPUSCULAR HEMOGLOBIN 29.8 PG (27.0-34.0); MEAN CORPUSCULAR HGB CONC 33.3 % (32.0-36.0); MEAN PLATELET VOLUME 8.9 FL (7.0-11.0); MONO % 4.7 % (0.0-8.0); MONOCYTE # 0.7 TH/MM3 (0-0.9); PLATELET COUNT 356 TH/MM3 (150-450); RED BLOOD COUNT 4.41 MIL/MM3 (4.00-5.30); RED CELL DISTRIBUTION WIDTH 13.4 % (11.6-17.2); WHITE BLOOD COUNT 14.3 TH/MM3 (4.0-11.0)
[2016-12-18 17:07] LABS: BICARBONATE 25.9 MEQ/L (21.0-32.0); CALCIUM 8.6 MG/DL (8.5-10.1); CREATININE 0.79 MG/DL (0.50-1.00)
[2016-12-18 18:11] VITALS: BP 123/70; PULSE 75; RESP 16; O2SAT 100
[2016-12-18] MEDS ORDERED: ACETAMINOPHEN 500 MG CPLT PO ONE ×2 (18:45)
[2016-12-31] MEDS ORDERED: METR-1 PO ×2 (11:25)
[2016-12-31] MEDS ORDERED: LEVE500 PO ×2 (13:55)
== END 2016-12-18 19:40 | disposition home or self-care (01) ==
LOC: NEPE 14:47
DX: R56.9 Unspecified convulsions (principal); G43.909 Migraine, unspecified, not intractable, without status migrainosus
CPT/HCPCS: 80048; 80307; 85025; 96365; 96366; 96372; 99284; J1953; J2060

== ENCOUNTER 2016-12-31 11:09 | Emergency (ER) | payer OTHER ==
[~2016-12-31] VITALS: Ht 167.6 cm; Wt 130.0 kg
[2016-12-31 11:18] VITALS: BP_SYST 120; BP_SYST 121; BP_DIAS 63; BP_DIAS 82; PULSE 82; RESP 14; TEMP 98.8; O2SAT 96
[2016-12-31] MEDS ORDERED: METR-1 PO (11:25)
[2016-12-31] MEDS ORDERED: SODIUM CHLOR 0.9% 1000 ML INJ 1,000 ML IV ONE (11:29)
[2016-12-31 11:43] VITALS: O2SAT 98
[2016-12-31] MEDS ORDERED: levETIRAcetam INJ 100 ML IV ONE (11:45)
[2016-12-31] MEDS ORDERED: PROMETHAZINE INJ 25 MG/ML VIAL IM ONE (11:45)
--- NOTE | 2016-12-31 12:18 | PD ---
HPI Chief Complaint: Seizure Time Seen by Provider: 11:29 Travel History International Travel<30 days: No Contact w/Intl Traveler<30days: No Traveled to known affect area: No History of Present Illness HPI 31-year-old female that presents to the ED for evaluation of seizure. Patient has a history of pseudoseizures and seizure disorder per medical records. She has been admitted multiple times for some has had multiple EEGs that have been negative for seizure activity. She is supposed to be on Keppra and she states that she's been noncompliant. She cannot really tell me when his last and she took it but she states that she did not take any yesterday or today. She had possibly a witnessed seizure by significant other where she had a full tonic- clonic seizure per her significant other. She didn't loss consciousness but did not hit her head. She was helped to the ground by significant other. She denies any substance abuse. She does state that she was recently diagnosed bacterial vaginosis and is taking Flagyl. Unclear as to why she is noncompliant with the medications. Per significant other he is trying to get her to take the medications to prevent this from happening. She was not given any medications by ambulance. She states feeling somewhat nauseous. She does have multiple allergies different medications. Denies any fevers chills or sweats at this time. A chest pain or shortness of breath. No urinary or bowel movement issues. No biting of tongue. PFSH Past Medical History Arthritis: No Autoimmune Disease: No Blood Disorders: No Bipolar Disorder: Yes Anxiety: Yes Depression: Yes Cancer: Yes (cervical cancer - removed) Cardiovascular Problems: No Chemotherapy: No Cerebrovascular Accident: No Diabetes: No Diminished Hearing: No Endocrine: No Gastrointestinal Disorders: Yes (nausea all the time) GERD: Yes Genitourinary: No Headaches: Yes Immune Disorder: No Implanted Vascular Access Dvce: No Kidney Stones: Yes (passed stone in 2011) Musculoskeletal: Yes (back pain) Psychiatric: Yes (Bipolar, ptsd, multiple personalties) Reproductive: Yes Immunizations Current: Yes Migraines: Yes Radiation Therapy: No Seizures: Yes Thyroid Disease: No Ulcer: Yes (PEPTIC) ?: Not : 0 Para: 0 Miscarriage: 0 : 0 Ovarian Cysts: Yes (3 lap surgeries) Past Surgical History Abdominal Surgery: Yes (gallbladder removed, tonsils and adenoids removed) Cardiac Surgery: No Cholecystectomy: Yes Ear Surgery: No Endocrine Surgery: No Eye Surgery: Yes (left eye surgeries X3 (lazy eye)) Genitourinary Surgery: No Gynecologic Surgery: Yes Neurologic Surgery: No Oral Surgery: No Thoracic Surgery: No Tonsillectomy: Yes Other Surgery: Yes (cervical leep) Social History Alcohol Use: No Tobacco Use: Yes (vape) Substance Use: No Allergies-Medications (Allergen,Severity, Reaction): Coded Allergies: erythromycin base (Unverified Allergy, Severe, Fever, 12/31/16) ketorolac (Unverified Allergy, Severe, Urinary Freq (Inc/Dec), 12/31/16) ondansetron (Unverified Allergy, Severe, Twitching, 12/31/16) phenobarbital (Unverified Allergy, Severe, Seizures, 12/31/16) Patient states that she is not allergic to phenobarbital tramadol (Unverified Allergy, Severe, Urinary Freq (Inc/Dec), 12/31/16) metoclopramide (Unverified Adverse Reaction, Intermediate, 12/31/16) SHAKING *MDRO Multi-Drug Resistant Organism (Verified Adverse Reaction, Unknown, 12/31/16) MRSA PCR screen positive - 04/23/2015 prochlorperazine (Unverified Adverse Reaction, Unknown, AGITATION, 12/31/16 ) Reported Meds & Prescriptions Reported Meds & Active Scripts Active Keppra (Levetiracetam) 500 Mg Tab 500 Mg PO Q12HR Fioricet (Cnrzcerzqj-Dceaurwxldvwq-Dcafznnh) 50-300-40 Mg Cap 1 Cap PO Q4H PRN Reported Flagyl (Metronidazole) 500 Mg Tab 500 Mg PO BID Imitrex (Sumatriptan Succinate) 100 Mg Tab 100 Mg PO ONCE PRN If a satisfactory response has not been obtained at 2 hours, a second dose may be administered Gabapentin 800 Mg Tab 800 Mg PO TID Tizanidine (Tizanidine HCl) 4 Mg Tab 4 Mg PO HS Ambien (Zolpidem Tartrate) 5 Mg Tab 5 Mg PO HS PRN Lexapro (Escitalopram Oxalate) 20 Mg Tab 20 Mg PO DAILY Lexapro (Escitalopram Oxalate) 10 Mg Tab 10 Mg PO DAILY Review of Systems Except as stated in HPI: all other systems reviewed are Neg Physical Exam Narrative GENERAL: SKIN: Warm and dry. HEAD: Atraumatic. Normocephalic. EYES: Pupils equal and round slightly dilated at 6 mm but they react to light and accomodation. No scleral icterus. No injection or drainage. EOM intact bilaterally. ENT: No nasal bleeding or discharge. Mucous membranes pink and moist. Tongue is midline. No uvula deviation. NECK: Trachea midline. No JVD. CARDIOVASCULAR: Regular rate and rhythm. No murmurs, S3, S4. RESPIRATORY: No accessory muscle use. Clear to auscultation. Breath sounds equal bilaterally. GASTROINTESTINAL: Abdomen soft, non-tender, nondistended. Hepatic and splenic margins not palpable. MUSCULOSKELETAL: Extremities without clubbing, cyanosis, or edema. No obvious deformities. Full range of motion of the upper and lower extremities bilaterally. 2+ pulses bilaterally. NEUROLOGICAL: Awake and alert. No obvious cranial nerve deficits. Motor grossly within normal limits. Five out of 5 muscle strength in the arms and legs. Normal speech. PSYCHIATRIC: Appropriate mood and affect; insight and judgment normal. Data Data Last Documented VS Vital Signs Date Time Temp Pulse Resp B/P (MAP) Pulse Ox O2 Delivery O2 Flow Rate FiO2 12/31/16 11:43 98 Room Air 12/31/16 11:18 98.8 82 14 Orders Orders Complete Blood Count With Diff (12/31/16 11:29) Alcohol (Ethanol) (12/31/16 11:29) Drug Screen, Random Urine (12/31/16 11:29) Blood Glucose (12/31/16 11:29) Ecg Monitoring (12/31/16 11:29) Iv Access Insert/Monitor (12/31/16 11:29) Oximetry (12/31/16 11:29) Comprehensive Metabolic Panel (12/31/16 11:29) Sodium Chlor 0.9% 1000 Ml Inj (Ns 1000 M (12/31/16 11:29) Levetiracetam (12/31/16 11:29) Levetiracetam 1000 Mg Inj (Keppra 1000 M (12/31/16 11:45) Promethazine Inj (Phenergan Inj) (12/31/16 11:45) Vascular Access Team Consult/P PRN (12/31/16 12:13) Vascular Poc Ultrasound (12/31/16 ) Levetiracetam (Keppra) (12/31/16 13:45) Labs Laboratory Tests Test 12/31/16 11:56 12/31/16 13:45 Urine Opiates Screen NEG Urine Barbiturates Screen POS Urine Amphetamines Screen NEG Urine Benzodiazepines Screen NEG Urine Cocaine Screen NEG Urine Cannabinoids Screen NEG Blood Urea Nitrogen 12 MG/DL Creatinine 0.83 MG/DL Random Glucose 71 MG/DL Total Protein 8.4 GM/DL Albumin 3.6 GM/DL Calcium Level 9.1 MG/DL Alkaline Phosphatase 97 U/L Aspartate Amino Transf (AST/SGOT) 29 U/L Alanine Aminotransferase (ALT/SGPT) 26 U/L Total Bilirubin 0.4 MG/DL Sodium Level 138 MEQ/L Potassium Level 3.8 MEQ/L Chloride Level 106 MEQ/L Carbon Dioxide Level 23.9 MEQ/L Anion Gap 8 MEQ/L Estimat Glomerular Filtration Rate 81 ML/MIN Ethyl Alcohol Level LESS THAN 3 MG/DL MDM Medical Decision Making Medical Screen Exam Complete: Yes Emergency Medical Condition: Yes Medical Record Reviewed: Yes Interpretation(s) CBC & BMP Diagram 12/31/16 13:45 Total Protein 8.4 H, Albumin 3.6, Calcium Level 9.1, Alkaline Phosphatase 97, Aspartate Amino Transf (AST/SGOT) 29, Alanine Aminotransferase (ALT/SGPT) 26, Total Bilirubin 0.4 tox screen positive for barbituates Differential Diagnosis Seizure versus seizure disorder versus pseudoseizure versus normal exam versus noncompliance Narrative Course 31-year-old female that presents to the ED for evaluation of possible seizure. Patient was properly examined and was found to have signs and symptoms of unclear etiology at this time but seizure-like activity reported. I did review patient's medical records and she has had multiple testing that has all been negative for actual seizure disorder. She supposed to be on Keppra which she is not compliant which has been mentioned many providers before. At this time labs and meds were given. Patient was given a loading dose of Keppra here. She does not appear to be in acute distress. She requested something for nausea and she was given Phenergan at her request. Given fluids. Labs showed no sign of acute disease. Case was discussed in my attending who agrees with plan. Partially patient is hard to get an IV on. Even vascular access was not able to get an IV on her. They will to get some blood from her to get blood work and this was negative. Patient was given by mouth Keppra dose. Patient was given prescription for Bentyl to take the Keppra. See ED worsening symptoms. Follow with PCP. Diagnosis Primary Impression: Breakthrough seizure Patient Instructions: General Instructions Additional Instructions: Your blood work looks good. Please continue to take your Keppra every day without missing a dose to prevent seizures. You cannot drive or operative heavy machinery until cleared by your neurologist for 6 months. See ED worsening symptoms. Follow with PCP. Do not take any alcohol Med/Other Pt SpecificInfo: Prescription(s) given Scripts Levetiracetam (Keppra) 500 Mg Tab 500 MG PO Q12HR for Control Seizures, #60 TAB Prov: Mónica Contreras MD 12/31/16 Disposition: 01 DISCHARGE HOME Condition: Stable Pato Soto Dec 31, 2016 12:18
[2016-12-31] MEDS ORDERED: levETIRAcetam 500 MG TAB PO ONE (13:45)
[2016-12-31] MEDS ORDERED: LEVE500 PO (13:55)
[2016-12-31 14:25] LABS: ALKALINE PHOSPHATASE 97 U/L (45-117); ALT (GPT) 26 U/L (10-53); ANION GAP 8 MEQ/L (5-15); AST (GOT) 29 U/L (15-37); BICARBONATE 23.9 MEQ/L (21.0-32.0); BLOOD UREA NITROGEN 12 MG/DL (7-18); CHLORIDE 106 MEQ/L (98-107); GLOMERULAR FILTRATION RATE 81 ML/MIN (>89); SODIUM (NA) 138 MEQ/L (136-145); TOTAL BILIRUBIN ADULT 0.4 MG/DL (0.2-1.0)
[2016-12-31 14:28] LABS: ALCOHOL LESS THAN 3 MG/DL (0-5); POTASSIUM 3.8 MEQ/L (3.5-5.1)
== END 2016-12-31 15:01 | disposition home or self-care (01) ==
LOC: NEPE 11:09
DX: G40.89 Other seizures (principal); R11.0 Nausea; Z91.14 Patient's other noncompliance with medication regimen; Z72.0 Tobacco use; Z86.59 Personal history of other mental and behavioral disorders; Z87.19 Personal history of other diseases of the digestive system; Z87.442 Personal history of urinary calculi; Z87.39 Personal history of other diseases of the musculoskeletal system and connective tissue; Z86.69 Personal history of other diseases of the nervous system and sense organs
CPT/HCPCS: 80053; 80307; 96372; 99285; J2550; 76937

== ENCOUNTER 2017-01-04 17:52 | Inpatient (IN) | payer OTHER ==
[2017-01-04] VITALS (19 sets, daily range): BP systolic 105–149; BP diastolic 50–89; PULSE 68–99; RESP 14–40; TEMP 98.1–98.3; O2SAT 98–100
[~2017-01-04] VITALS: Ht 167.6 cm; Wt 136.8 kg
[~2017-01-04 17:52] MED LIST changes: -HYDR-3583 PO; +METR-1 PO
[2017-01-04] MEDS ORDERED: PROPOFOL 1000 MG/100 ML INJ 100 ML ONE (17:57)
[2017-01-04] MEDS ORDERED: MIDAZOLAM HCL 5 MG/ML VIAL (1 ML) ONE (17:57)
[2017-01-04] MEDS ORDERED: SODIUM CHLOR 0.9% 1000 ML INJ 1,000 ML IV ONE (17:59)
[2017-01-04] MEDS ORDERED: levETIRAcetam 1000 MG INJ 100 ML IV ONE (18:00)
[2017-01-04] MEDS ORDERED: SODIUM CHLORIDE 0.9% FLUSH 10 ML FLUSH IVF PRN (18:00)
[2017-01-04] MEDS ORDERED: PROPOFOL 1000 MG/100 ML INJ 100 ML IV PRN (18:15)
[2017-01-04] MEDS ORDERED: MIDAZOLAM 100 MG/100 ML INJ 100 ML ONE (18:21)
[2017-01-04] MEDS ORDERED: fentaNYL DRIP 250 ML ONE (18:21)
[2017-01-04 18:27] LABS: AUTOMATED NEUTROPHIL # 7.6 TH/MM3 (1.8-7.7); BASOPHIL # 0.1 TH/MM3 (0-0.2); BASOPHIL % 0.6 % (0.0-2.0); EOSINOPHIL # 0.2 TH/MM3 (0-0.4); EOSINOPHIL % 2.1 % (0.0-4.0); HEMATOCRIT 38.3 % (35.0-46.0); HEMO FLAGS DIFF FINAL; LYMPH % 25.1 % (9.0-44.0); LYMPHOCYTE # 2.9 TH/MM3 (1.0-4.8); MEAN CELL VOLUME 90.5 FL (80.0-100.0); MEAN CORPUSCULAR HEMOGLOBIN 30.6 PG (27.0-34.0); MEAN CORPUSCULAR HGB CONC 33.8 % (32.0-36.0); MONO % 5.7 % (0.0-8.0); NEUT % 66.5 % (16.0-70.0); PLATELET COUNT 356 TH/MM3 (150-450); RED BLOOD COUNT 4.23 MIL/MM3 (4.00-5.30); WHITE BLOOD COUNT 11.5 TH/MM3 (4.0-11.0)
[2017-01-04] MEDS ORDERED: MIDAZOLAM HCL 5 MG/5 ML VIAL IV PUSH ONE ×2 (18:30)
[2017-01-04 18:36] LABS: BLOOD, URINE NEG (NEG); GLUCOSE,URINE NEG (NEG); KETONE, URINE NEG (NEG); NITRITE,URINE NEG (NEG); URINE COLOR LIGHT-YELLOW (YELLW/STRAW)
[2017-01-04 18:43] LABS: ALKALINE PHOSPHATASE 88 U/L (45-117); ALT (GPT) 24 U/L (10-53); ANION GAP 6 MEQ/L (5-15); AST (GOT) 25 U/L (15-37); BLOOD UREA NITROGEN 11 MG/DL (7-18); CHLORIDE 108 MEQ/L (98-107); GLOMERULAR FILTRATION RATE 91 ML/MIN (>89); SODIUM (NA) 138 MEQ/L (136-145); TOTAL BILIRUBIN ADULT 0.2 MG/DL (0.2-1.0)
[2017-01-04 18:45] LABS: ALCOHOL LESS THAN 3 MG/DL (0-5); POTASSIUM 4.6 MEQ/L (3.5-5.1)
[2017-01-04] MEDS ORDERED: ETOMIDATE 20 MG/10 ML VIAL IV PUSH ONE (18:45)
[2017-01-04] MEDS ORDERED: SUCCINYLCHOLINE CHLORIDE 100 MG/5 ML SYRINGE IV PUSH ONE (18:45)
--- NOTE | 2017-01-04 18:47 | PD ---
HPI Chief Complaint: Seizure Time Seen by Provider: 17:57 Travel History International Travel<30 days: No Contact w/Intl Traveler<30days: No Traveled to known affect area: No History of Present Illness HPI The patient is a 31-year-old female who presents to the emergency department via EMS for seizure. EMS states that the patient had approximately 7 seizures that lasted anywhere from 30 seconds to 1 minute prior to arrival. EMS describes his seizures as tonic-clonic with a short postictal state, lasting several seconds, and then the seizure we'll restart. EMS states they were unable to obtain IV access and the patient was allergic to Ativan, therefore, no medications were administered in route to the hospital. EMS states that the patient has a history of anaphylaxis and stops breathing with Ativan was administered, according to the boyfriend's statement on scene. The patient does have a history of seizures for which she takes multiple medications including Keppra and Neurontin. Upon arrival the patient was seizing, was nonverbal and unable to provide any further information. PFSH Past Medical History Arthritis: No Autoimmune Disease: No Blood Disorders: No Bipolar Disorder: Yes Anxiety: Yes Depression: Yes Cancer: Yes (cervical cancer - removed) Cardiovascular Problems: No Chemotherapy: No Cerebrovascular Accident: No Diabetes: No Diminished Hearing: No Endocrine: No Gastrointestinal Disorders: Yes (nausea all the time) GERD: Yes Genitourinary: No Headaches: Yes Immune Disorder: No Implanted Vascular Access Dvce: No Kidney Stones: Yes (passed stone in 2011) Musculoskeletal: Yes (back pain) Psychiatric: Yes (Bipolar, ptsd, multiple personalties) Reproductive: Yes Immunizations Current: Yes Migraines: Yes Radiation Therapy: No Seizures: Yes Thyroid Disease: No Ulcer: Yes (PEPTIC) Tetanus Vaccination: < 5 Years Influenza Vaccination: No ?: Unknown : 0 Para: 0 Miscarriage: 0 : 0 Ovarian Cysts: Yes (3 lap surgeries) Past Surgical History Abdominal Surgery: Yes (gallbladder removed, tonsils and adenoids removed) Cardiac Surgery: No Cholecystectomy: Yes Ear Surgery: No Endocrine Surgery: No Eye Surgery: Yes (left eye surgeries X3 (lazy eye)) Genitourinary Surgery: No Gynecologic Surgery: Yes Neurologic Surgery: No Oral Surgery: No Thoracic Surgery: No Tonsillectomy: Yes Other Surgery: Yes (cervical leep) Social History Alcohol Use: No Tobacco Use: Yes (vape) Substance Use: No Allergies-Medications (Allergen,Severity, Reaction): Coded Allergies: erythromycin base (Unverified Allergy, Severe, Fever, 12/31/16) ketorolac (Unverified Allergy, Severe, Urinary Freq (Inc/Dec), 12/31/16) ondansetron (Unverified Allergy, Severe, Twitching, 12/31/16) phenobarbital (Unverified Allergy, Severe, Seizures, 12/31/16) Patient states that she is not allergic to phenobarbital tramadol (Unverified Allergy, Severe, Urinary Freq (Inc/Dec), 12/31/16) metoclopramide (Unverified Adverse Reaction, Intermediate, 12/31/16) SHAKING *MDRO Multi-Drug Resistant Organism (Verified Adverse Reaction, Unknown, 12/31/16) MRSA PCR screen positive - 04/23/2015 prochlorperazine (Unverified Adverse Reaction, Unknown, AGITATION, 12/31/16 ) Reported Meds & Prescriptions Reported Meds & Active Scripts Active Keppra (Levetiracetam) 500 Mg Tab 500 Mg PO Q12HR Fioricet (Isqoxhdbbu-Ixcjavtgverws-Ccdwdzen) 50-300-40 Mg Cap 1 Cap PO Q4H PRN Reported Flagyl (Metronidazole) 500 Mg Tab 500 Mg PO BID Imitrex (Sumatriptan Succinate) 100 Mg Tab 100 Mg PO ONCE PRN If a satisfactory response has not been obtained at 2 hours, a second dose may be administered Gabapentin 800 Mg Tab 800 Mg PO TID Tizanidine (Tizanidine HCl) 4 Mg Tab 4 Mg PO HS Ambien (Zolpidem Tartrate) 5 Mg Tab 5 Mg PO HS PRN Lexapro (Escitalopram Oxalate) 20 Mg Tab 20 Mg PO DAILY Lexapro (Escitalopram Oxalate) 10 Mg Tab 10 Mg PO DAILY Review of Systems ROS Limitations: Clinical Condition, Altered Mental Status Except as stated in HPI: all other systems reviewed are Neg Neurologic: Positive: Seizures Physical Exam Exam Limitations: Clinical Condition, Altered Mental Status Narrative GENERAL: 31-year-old female who is actively seizing upon arrival, with a heart rate in the 140s, left gaze, and nystagmus noted. SKIN: Focused skin assessment warm/dry. HEAD: Atraumatic. Normocephalic. EYES: Pupils equal and round. Pupils are 4 mm bilateral reactive, left gaze with nystagmus noted. ENT: No nasal bleeding or discharge. Mucous membranes pink and moist, no visible tongue trauma. NECK: Trachea midline. No JVD. CARDIOVASCULAR: Tachycardic with a heart rate in the 140s. RESPIRATORY: No accessory muscle use. Clear to auscultation. Breath sounds equal bilaterally. GASTROINTESTINAL: Abdomen soft, obese, no visible ecchymosis.. MUSCULOSKELETAL: No obvious deformities. No clubbing. No cyanosis. No edema. NEUROLOGICAL: Actively seizing upon arrival with eyes open in the left gaze with nystagmus. Nonverbal. PSYCHIATRIC: Unable to obtain. Data Data Last Documented VS Vital Signs Date Time Temp Pulse Resp B/P (MAP) Pulse Ox O2 Delivery O2 Flow Rate FiO2 01/04/17 19:00 76 16 134/74 (94) 100 01/04/17 18:58 Ventilator 60 01/04/17 18:00 15.00 01/04/17 17:55 98.3 Orders Orders Levetiracetam 1000 Mg Inj (Keppra 1000 M (01/04/17 18:00) Propofol 1000 Mg/100 Ml Inj (Diprivan 10 (01/04/17 17:57) Midazolam Inj (Versed Inj) (01/04/17 17:57) Complete Blood Count With Diff (01/04/17 17:59) Alcohol (Ethanol) (01/04/17 17:59) Drug Screen, Random Urine (01/04/17 17:59) Ct Brain W/O Iv Contrast(Rout) (01/04/17 ) Blood Glucose (01/04/17 17:59) Ecg Monitoring (01/04/17 17:59) Iv Access Insert/Monitor (01/04/17 17:59) Oximetry (01/04/17 17:59) Comprehensive Metabolic Panel (01/04/17 17:59) Sodium Chlor 0.9% 1000 Ml Inj (Ns 1000 M (01/04/17 17:59) Sodium Chloride 0.9% Flush (Ns Flush) (01/04/17 18:00) Ua Includes Microscopic (01/04/17 17:59) Lactic Acid (01/04/17 17:59) Propofol 1000 Mg/100 Ml Inj (Diprivan 10 (01/04/17 18:15) ^ Infusion (01/04/17 18:10) RASS (01/04/17 18:10) Neurological Rass Scale MARY.Q2H (01/04/17 18:10) Midazolam Inj (Versed Inj) (01/04/17 18:30) Midazolam Inj (Versed Inj) (01/04/17 18:30) Midazolam 100 Mg/100 Ml Inj (Versed Inj) (01/04/17 18:21) Fentanyl Drip (Fentanyl Drip) (01/04/17 18:21) Urinary Catheter Insert/Apply (01/04/17 18:39) Khoi-Gastric Tube Insert/Mon (01/04/17 18:39) Restraints Non-Violent MARY.Q3H (01/04/17 18:39) Etomidate Inj (Amidate Inj) (01/04/17 18:45) Succinylcholine Inj (Quelicin Inj) (01/04/17 18:45) Chest, Single Ap (01/04/17 ) Admit Order (Ed Use Only) (01/04/17 ) [employer] Or [employer] Worker / Telemetry MARY.Q8H (01/04/17 18:57) Vital Signs (Adult) Q4H (01/04/17 18:57) Diet Npo (01/04/17 Dinner) Activity Bed Rest (01/04/17 18:57) Labs Laboratory Tests Test 01/04/17 18:00 01/04/17 18:20 01/04/17 19:00 White Blood Count 11.5 TH/MM3 Red Blood Count 4.23 MIL/MM3 Hemoglobin 13.0 GM/DL Hematocrit 38.3 % Mean Corpuscular Volume 90.5 FL Mean Corpuscular Hemoglobin 30.6 PG Mean Corpuscular Hemoglobin Concent 33.8 % Red Cell Distribution Width 14.0 % Platelet Count 356 TH/MM3 Mean Platelet Volume 9.1 FL Neutrophils (%) (Auto) 66.5 % Lymphocytes (%) (Auto) 25.1 % Monocytes (%) (Auto) 5.7 % Eosinophils (%) (Auto) 2.1 % Basophils (%) (Auto) 0.6 % Neutrophils # (Auto) 7.6 TH/MM3 Lymphocytes # (Auto) 2.9 TH/MM3 Monocytes # (Auto) 0.7 TH/MM3 Eosinophils # (Auto) 0.2 TH/MM3 Basophils # (Auto) 0.1 TH/MM3 CBC Comment DIFF FINAL Differential Comment Blood Urea Nitrogen 11 MG/DL Creatinine 0.75 MG/DL Random Glucose 88 MG/DL Total Protein 7.9 GM/DL Albumin 3.4 GM/DL Calcium Level 8.6 MG/DL Alkaline Phosphatase 88 U/L Aspartate Amino Transf (AST/SGOT) 25 U/L Alanine Aminotransferase (ALT/SGPT) 24 U/L Total Bilirubin 0.2 MG/DL Sodium Level 138 MEQ/L Potassium Level 4.6 MEQ/L Chloride Level 108 MEQ/L Carbon Dioxide Level 24.0 MEQ/L Anion Gap 6 MEQ/L Estimat Glomerular Filtration Rate 91 ML/MIN Ethyl Alcohol Level LESS THAN 3 MG/DL Urine Color LIGHT-YELLOW Urine Turbidity CLEAR Urine pH 8.0 Urine Specific [place] 1.006 Urine Protein NEG mg/dL Urine Glucose (UA) NEG mg/dL Urine Ketones NEG mg/dL Urine Occult Blood NEG Urine Nitrite NEG Urine Bilirubin NEG Urine Urobilinogen LESS THAN 2.0 MG/DL Urine Leukocyte Esterase NEG Urine RBC 2 /hpf Urine WBC 1 /hpf Urine Opiates Screen NEG Urine Barbiturates Screen POS Urine Amphetamines Screen NEG Urine Benzodiazepines Screen NEG Urine Cocaine Screen NEG Urine Cannabinoids Screen NEG Lactic Acid Level 1.0 mmol/L MDM Medical Decision Making Medical Screen Exam Complete: Yes Emergency Medical Condition: Yes Medical Record Reviewed: Yes Interpretation(s) Last Impressions Head CT 01/04/17 0000 Signed Impressions: Service Date/Time: Wednesday, January 04, 2017 22:36 - CONCLUSION: Normal examination. Kody Zepeda MD Chest X-Ray 01/04/17 0000 Signed Impressions: Service Date/Time: Wednesday, January 04, 2017 19:02 - CONCLUSION: 1. Right IJ line tip is in the SVC. No pneumothorax is present. 2. Endotracheal tube distal tip measures 2.1 cm from the mirella. Christian Liz MD Laboratory Tests Test 01/04/17 18:00 01/04/17 18:20 01/04/17 19:00 White Blood Count 11.5 TH/MM3 Red Blood Count 4.23 MIL/MM3 Hemoglobin 13.0 GM/DL Hematocrit 38.3 % Mean Corpuscular Volume 90.5 FL Mean Corpuscular Hemoglobin 30.6 PG Mean Corpuscular Hemoglobin Concent 33.8 % Red Cell Distribution Width 14.0 % Platelet Count 356 TH/MM3 Mean Platelet Volume 9.1 FL Neutrophils (%) (Auto) 66.5 % Lymphocytes (%) (Auto) 25.1 % Monocytes (%) (Auto) 5.7 % Eosinophils (%) (Auto) 2.1 % Basophils (%) (Auto) 0.6 % Neutrophils # (Auto) 7.6 TH/MM3 Lymphocytes # (Auto) 2.9 TH/MM3 Monocytes # (Auto) 0.7 TH/MM3 Eosinophils # (Auto) 0.2 TH/MM3 Basophils # (Auto) 0.1 TH/MM3 CBC Comment DIFF FINAL Differential Comment Blood Urea Nitrogen 11 MG/DL Creatinine 0.75 MG/DL Random Glucose 88 MG/DL Total Protein 7.9 GM/DL Albumin 3.4 GM/DL Calcium Level 8.6 MG/DL Alkaline Phosphatase 88 U/L Aspartate Amino Transf (AST/SGOT) 25 U/L Alanine Aminotransferase (ALT/SGPT) 24 U/L Total Bilirubin 0.2 MG/DL Sodium Level 138 MEQ/L Potassium Level 4.6 MEQ/L Chloride Level 108 MEQ/L Carbon Dioxide Level 24.0 MEQ/L Anion Gap 6 MEQ/L Estimat Glomerular Filtration Rate 91 ML/MIN Ethyl Alcohol Level LESS THAN 3 MG/DL Urine Color LIGHT-YELLOW Urine Turbidity CLEAR Urine pH 8.0 Urine Specific [place] 1.006 Urine Protein NEG mg/dL Urine Glucose (UA) NEG mg/dL Urine Ketones NEG mg/dL Urine Occult Blood NEG Urine Nitrite NEG Urine Bilirubin NEG Urine Urobilinogen LESS THAN 2.0 MG/DL Urine Leukocyte Esterase NEG Urine RBC 2 /hpf Urine WBC 1 /hpf Urine Opiates Screen NEG Urine Barbiturates Screen POS Urine Amphetamines Screen NEG Urine Benzodiazepines Screen NEG Urine Cocaine Screen NEG Urine Cannabinoids Screen NEG Lactic Acid Level 1.0 mmol/L Differential Diagnosis Differential diagnosis includes status epilepticus, breakthrough seizure, subtherapeutic Keppra level, noncompliance, pseudoseizure, closed head injury, to cranial hemorrhage, hyponatremia, hypoglycemia. Narrative Course IV was established, labs are drawn and sent, the patient is placed on cardiac telemetry monitoring and continuous pulse oximetry monitoring. The patient had 3 seizures within a five-minute perior which were generalized seizures, the patient's heart rate would go up into the 140s. The seizure would last approximately 60 seconds and then resolved with the patient was postictal the heart rate would come back down into the 90s. The patient had 2 more episodes of these despite Versed 5 mg intravenously. Therefore, the patient was intubated using rapid sequence intubation with etomidate and succinylcholine. The patient was then administered 5 mg of Versed after intubation when she once again had a seizure, was placed on a propofol drip. The patient had an OG placed after intubation. The patient was also administered 1 g intravenously. I reviewed the EMR, the patient appears to have a history of seizures and pseudoseizures, had a normal EEG earlier this year that was performed by Dr. Medina. However, the patient had multiple episodes of seizure-like activity with a heart rate elevated to the 140s and 150s, more likely be status epilepticus. I discussed the patient with the on-call b2b sales executive, Dr. South, who agrees with admission to the intensive care unit. Critical Care Narrative Aggregate critical care time was 45 minutes. Time to perform other separately billable procedures was not included in the critical care time. My time did not include minutes spent treating any other patients simultaneously or on activities that did not directly contribute to the patient's treatment. The services I provided to this patient were to treat and/or prevent clinically significant deterioration that could result in: Anoxia, hypoxia, aspiration, . I provided critical care services requiring my management, as noted below: Chart data review, documentation time, medication orders and management, vital sign assessments/reviewing monitor data, ordering and reviewing lab tests, ordering and interpreting/reviewing x-rays and diagnostic studies, care of the patient and discussion of the patient with the admitting physicians. Procedures Procedure Narrative INTUBATION: The patient was put in optimal position for the procedure. Rapid sequence intubation was initiated by me using 20 milligrams of etomidate IV and 100 milligrams of succinylcholine IV. The patient was intubated with a 7-5 cuffed endotracheal tube. Tube placement was confirmed by visualization of the tube and balloon passing through the cords, capnometry and subsequent chest x- ray. Breath sounds were equal and well aerated bilaterally postintubation. No breath sounds over stomach. Patient tolerated procedure well. Physician Communication Physician Communication I discussed the patient with the on-call b2b sales executive, Dr. South, who agrees with admission. Diagnosis Primary Impression: Status epilepticus Admitting Information Admitting Physician Requests: Admit Condition: Critical Ivan Cullen MD Jan 04, 2017 18:47
[2017-01-04] MEDS ORDERED: SODIUM CHLORIDE 0.9% FLUSH 10 ML FLUSH IV FLUSH PRN (19:15)
[2017-01-04] MEDS ORDERED: MISCELLANEOUS NURSING INFORMATION XX SCH (19:15)
[2017-01-04] MEDS ORDERED: CHLORHEXIDINE GLUCONATE 2 % 1 PACK (2 CLOTHS) TOP PRN (19:15)
[2017-01-04] MEDS ORDERED: ACETAMINOPHEN 325 MG TAB PO PRN (19:15)
[2017-01-04] MEDS ORDERED: RESP: ALBUTEROL 2.5 MG/IPRATROPIUM 0.5 MG NEB (PRN) INH (19:15)
--- NOTE | 2017-01-04 19:28 | RADRPT ---
EXAM DATE/TIME: 01/04/2017 19:02 [facility] COMPARISON: CHEST SINGLE AP, November 14, 2016, 13:29. INDICATIONS : Central line and intubation placement. MEDICAL HISTORY : None. SURGICAL HISTORY : None. ENCOUNTER: Initial ACUITY: 1 day PAIN SCORE: 0/10 LOCATION: Bilateral chest FINDINGS: Portable AP view of the chest demonstrates a normal-sized cardiac silhouette. Endotracheal tube is pr esent with tip measuring 2.1 cm from the mirella. Nasogastric tube is looped in the stomach. Right IJ central line distal tip is in the SVC. Lungs are very underinflated. No pneumothorax is identified. T here is atelectasis at the lung bases. CONCLUSION: 1. Right IJ line tip is in the SVC. No pneumothorax is present. 2. Endotracheal tube distal tip measures 2.1 cm from the mirella. Christian Liz MD on January 04, 2017 at 19:26 Board Certified Radiologist. This report was verified electronically.
--- NOTE | 2017-01-04 19:34 | HHI.HP ---
HPI Service Critical Care Medicine Primary Care Physician Unknown Admission Diagnosis status epilepticus Diagnosis: Travel History International Travel<30 Days: No Contact w/Intl Traveler <30 Da: No Traveled to Known Affected Are: No History of Present Illness HPI The patient is a 31-year-old female who presents to the emergency department via EMS for seizure. Per EMS patient had approximately 7 seizures that lasted anywhere from 30 seconds to 1 minute prior to arrival. EMS described seizures as tonic-clonic with a short postictal state, lasting several seconds, and then the seizures would restart. EMS were unable to obtain IV access and the patient was allergic to Ativan, therefore, no medications were administered in route to the hospital. EMS stated that the patient has a history of anaphylaxis and stops breathing with Ativan was administered, according to the boyfriend's statement on scene. The patient does have a history of seizures for which she takes multiple medications including Keppra and Neurontin. Upon arrival the patient was seizing, was nonverbal and unable to provide any further information. Patient had at least [address] Cullen while in the ER. She was intubated and placed on propofol for sedation. 1 g IV Keppra was ordered. Labs and CT head were pending. Patient was accepted for admission by critical care medicine service. When I evaluated the patient in the ER she was sedated with propofol, orally intubated on mechanical ventilation. She had one peripheral IV in her hand hence I emergently placed a right IJ central venous catheter under ultrasound guidance for better vascular access prior to transporting patient for imaging studies. History was obtained by reviewing records and discussion with Dr. Cullen and ER nursing staff. Patient has had multiple admissions previously for seizures and pseudoseizures as documented in the record. PFSH Past Medical History Arthritis: No Autoimmune Disease: No Blood Disorders: No Bipolar Disorder: Yes Anxiety: Yes Depression: Yes Cancer: Yes (cervical cancer - removed) Cardiovascular Problems: No Chemotherapy: No Cerebrovascular Accident: No Diabetes: No Diminished Hearing: No Endocrine: No Gastrointestinal Disorders: Yes (nausea all the time) GERD: Yes Genitourinary: No Headaches: Yes Immune Disorder: No Implanted Vascular Access Dvce: No Kidney Stones: Yes (passed stone in 2011) Musculoskeletal: Yes (back pain) Psychiatric: Yes (Bipolar, ptsd, multiple personalties) Reproductive: Yes Immunizations Current: Yes Migraines: Yes Radiation Therapy: No Seizures: Yes Thyroid Disease: No Ulcer: Yes (PEPTIC) Tetanus Vaccination: < 5 Years Influenza Vaccination: No ?: Unknown : 0 Para: 0 Miscarriage: 0 : 0 Ovarian Cysts: Yes (3 lap surgeries) Past Surgical History Abdominal Surgery: Yes (gallbladder removed, tonsils and adenoids removed) Cardiac Surgery: No Cholecystectomy: Yes Ear Surgery: No Endocrine Surgery: No Eye Surgery: Yes (left eye surgeries X3 (lazy eye)) Genitourinary Surgery: No Gynecologic Surgery: Yes Neurologic Surgery: No Oral Surgery: No Thoracic Surgery: No Tonsillectomy: Yes Other Surgery: Yes (cervical leep) Social History Alcohol Use: No Tobacco Use: Yes (vape) Substance Use: No Allergies-Medications (Allergen,Severity, Reaction): Coded Allergies: erythromycin base (Unverified Allergy, Severe, Fever, 12/31/16) ketorolac (Unverified Allergy, Severe, Urinary Freq (Inc/Dec), 12/31/16) ondansetron (Unverified Allergy, Severe, Twitching, 12/31/16) phenobarbital (Unverified Allergy, Severe, Seizures, 12/31/16) Patient states that she is not allergic to phenobarbital tramadol (Unverified Allergy, Severe, Urinary Freq (Inc/Dec), 12/31/16) metoclopramide (Unverified Adverse Reaction, Intermediate, 12/31/16) SHAKING *MDRO Multi-Drug Resistant Organism (Verified Adverse Reaction, Unknown, 12/31/16) MRSA PCR screen positive - 04/23/2015 prochlorperazine (Unverified Adverse Reaction, Unknown, AGITATION, 12/31/16 ) Reported Meds & Prescriptions Reported Meds & Active Scripts Active Keppra (Levetiracetam) 500 Mg Tab 500 Mg PO Q12HR Fioricet (Ctshwxobuh-Fyprrkwinqfxt-Hssmdleu) 50-300-40 Mg Cap 1 Cap PO Q4H PRN Reported Flagyl (Metronidazole) 500 Mg Tab 500 Mg PO BID Imitrex (Sumatriptan Succinate) 100 Mg Tab 100 Mg PO ONCE PRN If a satisfactory response has not been obtained at 2 hours, a second dose may be administered Gabapentin 800 Mg Tab 800 Mg PO TID Tizanidine (Tizanidine HCl) 4 Mg Tab 4 Mg PO HS Ambien (Zolpidem Tartrate) 5 Mg Tab 5 Mg PO HS PRN Lexapro (Escitalopram Oxalate) 20 Mg Tab 20 Mg PO DAILY Lexapro (Escitalopram Oxalate) 10 Mg Tab 10 Mg PO DAILY Review of Systems ROS Limitations: Clinical Condition, Altered Mental Status, sedation and oral intubation. Physical Exam Vital Signs Vital Signs Date Time Temp Pulse Resp B/P (MAP) Pulse Ox O2 Delivery O2 Flow Rate FiO2 01/04/17 18:58 71 16 134/74 (94) 99 Ventilator 60 01/04/17 18:32 72 16 130/60 (83) 99 Ventilator 100 01/04/17 18:10 99 60 01/04/17 18:04 60 01/04/17 18:00 88 22 136/74 (94) 98 Non-Rebreather 15.00 01/04/17 17:55 98.3 99 40 136/74 (94) 99 Physical Exam HEENT/ Neuro: Sedated, orally intubated, Pallor present, no icterus, tongue/ mucosa moist. Pupils 3 mm bilaterally reactive, DTR 2+, plantars equivocal, moving both upper extremities. Neck: No JVD Chest/Pulm: on mech vent, good air entry bilaterally, no wheezing or crackles CVS: S1-S2 regular, no murmur GI/abdomen: soft, nontender, bowel sounds sluggish Extremities: warm bilaterally, no edema Laboratory Laboratory Tests Test 01/04/17 18:00 01/04/17 18:20 01/04/17 19:00 White Blood Count 11.5 Red Blood Count 4.23 Hemoglobin 13.0 Hematocrit 38.3 Mean Corpuscular Volume 90.5 Mean Corpuscular Hemoglobin 30.6 Mean Corpuscular Hemoglobin Concent 33.8 Red Cell Distribution Width 14.0 Platelet Count 356 Mean Platelet Volume 9.1 Neutrophils (%) (Auto) 66.5 Lymphocytes (%) (Auto) 25.1 Monocytes (%) (Auto) 5.7 Eosinophils (%) (Auto) 2.1 Basophils (%) (Auto) 0.6 Neutrophils # (Auto) 7.6 Lymphocytes # (Auto) 2.9 Monocytes # (Auto) 0.7 Eosinophils # (Auto) 0.2 Basophils # (Auto) 0.1 CBC Comment DIFF FINAL Differential Comment Blood Urea Nitrogen 11 Creatinine 0.75 Random Glucose 88 Total Protein 7.9 Albumin 3.4 Calcium Level 8.6 Alkaline Phosphatase 88 Aspartate Amino Transf (AST/SGOT) 25 Alanine Aminotransferase (ALT/SGPT) 24 Total Bilirubin 0.2 Sodium Level 138 Potassium Level 4.6 Chloride Level 108 Carbon Dioxide Level 24.0 Anion Gap 6 Estimat Glomerular Filtration Rate 91 Ethyl Alcohol Level LESS THAN 3 Urine Color LIGHT-YELLOW Urine Turbidity CLEAR Urine pH 8.0 Urine Specific [place] 1.006 Urine Protein NEG Urine Glucose (UA) NEG Urine Ketones NEG Urine Occult Blood NEG Urine Nitrite NEG Urine Bilirubin NEG Urine Urobilinogen LESS THAN 2.0 Urine Leukocyte Esterase NEG Urine RBC 2 Urine WBC 1 Urine Opiates Screen NEG Urine Barbiturates Screen POS Urine Amphetamines Screen NEG Urine Benzodiazepines Screen NEG Urine Cocaine Screen NEG Urine Cannabinoids Screen NEG Result Diagram: 01/04/17 1800 01/04/17 1800 Imaging Chest x-ray portable which was personally reviewed: ET tube above mirella, right IJ central line with tip overlying SVC, OG tube in place going below diaphragm, no pneumothorax, poorly inflated lung moreau, no obvious infiltrates Caprini VTE Risk Assessment Caprini VTE Risk Assessment: Mod/High Risk (score >= 2) Caprini Risk Assessment Model Point Value = 1 Point Value = 2 Point Value = 3 Point Value = 5 Age 41-60 Minor surgery BMI > 25 kg/m2 Swollen legs Varicose veins or History of unexplained or recurrent spontaneous Oral contraceptives or hormone replacement Sepsis (< 1 month) Serious lung disease, including pneumonia (< 1 month) Abnormal pulmonary function Acute myocardial infarction Congestive heart failure (< 1 month) History of inflammatory bowel disease Medical patient at bed rest Age 61-74 Arthroscopic surgery Major open surgery (> 45 min) Laparoscopic surgery (> 45 min) Malignancy Confined to bed (> 72 hours) Immobilizing plaster cast Central venous access Age >= 75 History of VTE Family history of VTE Factor V Leiden Prothrombin [id number] Lupus anticoagulant Anticardiolipin antibodies Elevated serum homocysteine Heparin-induced thrombocytopenia Other congenital or acquired thrombophilia Stroke (< 1 month) Elective arthroplasty Hip, pelvis, or leg fracture Acute spinal cord injury (< 1 month) Prophylaxis Regimen Total Risk Factor Score Risk Level Prophylaxis Regimen 0-1 Low Early ambulation 2 Moderate Order ONE of the following: *Sequential Compression Device (SCD) *Heparin 5000 units SQ BID 3-4 Higher Order ONE of the following medications: *Heparin 5000 units SQ TID *Enoxaparin/Lovenox 40 mg SQ daily (WT < 150 kg, CrCl > 30 mL/min) *Enoxaparin/Lovenox 30 mg SQ daily (WT < 150 kg, CrCl > 10-29 mL/min) *Enoxaparin/Lovenox 30 mg SQ BID (WT < 150 kg, CrCl > 30 mL/min) AND/OR *Sequential Compression Device (SCD) 5 or more Highest Order ONE of the following medications: *Heparin 5000 units SQ TID (Preferred with Epidurals) *Enoxaparin/Lovenox 40 mg SQ daily (WT < 150 kg, CrCl > 30 mL/min) *Enoxaparin/Lovenox 30 mg SQ daily (WT < 150 kg, CrCl > 10-29 mL/min) *Enoxaparin/Lovenox 30 mg SQ BID (WT < 150 kg, CrCl > 30 mL/min) AND *Sequential Compression Device (SCD) Assessment and Plan Assessment and Plan 31-year-old female with: Status epilepticus Acute respiratory failure on mechanical ventilation Morbid obesity Bipolar disorder h/o pseudoseizures H/O Migraine headaches Plan: Neuro: Sedation with propofol and Versed gtt. Continue IV Keppra. Continue Neurontin. Awaiting head CT. We'll consult neurology and obtain EEG in a.m. Sedation vacation in a.m. if no further seizures. Cardiovascular: IV hydration, watch for hypotension. Pulmonary: Intubated for airway protection. Continue mechanical ventilation, vent bundle, bronchodilators as needed. GI/liver: Start tube feeds in a.m. and advanced to goal as tolerated. Renal/: IV hydration, strict intake output, monitor and replete electro lites , follow BUN/creatinine. Avila catheterization for accurate intake output. ID: No antibiotics at this time. Watch for fever/leukocytosis. Endocrine: SSI for glycemic control if needed Heme: Follow CBC Prophylaxis: Pepcid/SCDs. If head CT negative for bleed we'll initiate Lovenox for DVT prophylaxis. Access: Right IJ central venous catheter placed on 01/04/17. Condition critical Time spent on critical care excluding procedures: 50 minutes Zeus South MD Jan 04, 2017 19:34
--- NOTE | 2017-01-04 19:42 | PD.PROCEDR ---
Central Line Procedure REASON FOR PROCEDURE Central venous access PROCEDURE PERFORMED Central line placement: Right IJ vein. CONSENT Informed consent for procedure was not obtained as this was an emergent procedure ANESTHESIA Local injection of 1% Lidocaine DESCRIPTION OF THE PROCEDURE The patient was placed in supine, mild Trendelenburg position. The area was exposed and cleansed with ChloraPrep, times two. Large sterile drape was used to cover the patient, with the site exposed, under sterile conditions including cap, face mask, sterile gown, and sterile gloves. On single attempt, the introducer needle was inserted with negative pressure in syringe and venous flash was obtained. The guide wire was then advanced without any restriction and the needle was removed. The dilator was used without any complications. Using Seldinger technique a 20 cm antimicrobial coated triple lumen catheter was advanced over the guide wire to a depth of 18 centimeters. The guide wire was removed. All ports were aspirated with dark venous blood return and flushed easily with sterile saline. All ports were capped. Antibiotic disc was placed around central line at puncture site. The central line was secured to the skin with a stat lock. The area was bandaged with sterile see-through central line bandage. Postprocedure chest x-ray was ordered and reviewed with appropriate placement of right IJ central line with tip overlying SVC, no pneumothorax on postprocedure film. RADIOLOGICAL DATA Ultrasound guidance was used to locate the right internal jugular vein COMPLICATIONS: No apparent complications ESTIMATED BLOOD LOSS: Less than 2 cc. Zeus South MD Jan 04, 2017 19:42
[2017-01-04] MEDS ORDERED: MIDAZOLAM HCL 2 MG/2 ML VIAL IV PUSH ONE (19:45)
[2017-01-04] MEDS: MIDAZOLAM 100 MG/100 ML INJ 100 ML IV PRN (19:46)
[2017-01-04] MEDS ORDERED: GLUCAGON 1 MG/ML VIAL OTHER PRN (20:00)
[2017-01-04] MEDS ORDERED: DEXTROSE 50% IN WATER 50 ML VIAL(D50) IV PUSH PRN (20:00)
[2017-01-04] MEDS: RESP: ALBUTEROL 2.5 MG/IPRATROPIUM 0.5 MG NEB (SCH) NEB (20:11)
[2017-01-04 20:22] LABS: BLOOD GAS BASE EXCESS 0.1 mmol/L (-2-2); BLOOD GAS CARBOXYHEMOGLOBIN 0.9 % (0-4); BLOOD GAS HCO3 24 mmol/L (22-26); BLOOD GAS METHEMOGLOBIN 0.5 % (0-2); BLOOD GAS O2 HGB SATURATION 98 % (90-100); BLOOD GAS OXYGEN CONTENT 18.8 Vol % (12.0-20.0); BLOOD GAS PCO2 40 mmHg (38-42); BLOOD GAS PO2 177 mmHG (61-120); BLOOD GAS TOTAL HGB 13.4 G/DL (12.0-16.0); CRITICAL VALUE NO; DRAW SITE RT RADIAL; FIO2 50 %; NUMBER OF ARTERIAL PUNCTURES 1; OXYGEN DEVICE VENTILATOR; STAT YES; TEMP CORR TO 98.6; ULNAR PULSE PRESENT
[2017-01-04] MEDS: FAMOTIDINE 20 MG TAB PO SCH (21:00)
--- NOTE | 2017-01-04 23:00 | RADRPT ---
EXAM DATE/TIME: 01/04/2017 22:36 [facility] COMPARISON: CT BRAIN W/O CONTRAST, November 14, 2016, 14:49. INDICATIONS : Possible seizure; patient on ventilator. RADIATION DOSE: 56.35 CTDIvol (mGy) MEDICAL HISTORY : Seizures. Gastroesophageal reflux disease. Renal calculi.Cervical cancer. SURGICAL HISTORY : Cholecystectomy. ENCOUNTER: Initial ACUITY: 1 day PAIN SCALE: Non-responsive LOCATION: cranial TECHNIQUE: Multiple contiguous axial images were obtained of the head. Using automated exposure control and adj ustment of the mA and/or kV according to patient size, radiation dose was kept as low as reasonably a chievable to obtain optimal diagnostic quality images. DICOM format image data is available electro nically for review and comparison. FINDINGS: CEREBRUM: The ventricles are normal for age. No evidence of midline shift, mass lesion, hemorrhage or acute in farction. No extra-axial fluid collections are seen. POSTERIOR FOSSA: The cerebellum and brainstem are intact. The 4th ventricle is midline. The cerebellopontine angle i s unremarkable. EXTRACRANIAL: The visualized portion of the orbits is intact. There is some fluid in nasopharynx likely related to intubation SKULL: The calvaria is intact. No evidence of skull fracture. CONCLUSION: Normal examination. Kody Zepeda MD on January 04, 2017 at 22:59 Board Certified Radiologist. This report was verified electronically.
[2017-01-04] MEDS: PROPOFOL 1000 MG/100 ML INJ 100 ML IV PRN (23:30)
[2017-01-04] MEDS: SODIUM CHLOR 0.9% 1000 ML INJ 1,000 ML IV SCH (23:36)
[2017-01-05] VITALS (19 sets, daily range): BP systolic 122–142; BP diastolic 70–88; PULSE 62–106; RESP 16–46; TEMP 98.1–99; O2SAT 95–100
[2017-01-05] MEDS: SODIUM CHLORIDE 0.9% FLUSH 10 ML FLUSH IV FLUSH SCH ×3 (00:38→20:28)
[2017-01-05] MEDS: PROPOFOL 1000 MG/100 ML INJ 100 ML IV PRN ×5 (00:40→11:01)
[2017-01-05] MEDS: MIDAZOLAM 100 MG/100 ML INJ 100 ML IV PRN (02:22)
[2017-01-05] MEDS: RESP: ALBUTEROL 2.5 MG/IPRATROPIUM 0.5 MG NEB (SCH) NEB ×4 (03:57→20:41)
[2017-01-05] MEDS: CHLORHEXIDINE GLUCONATE 2 % 1 PACK (2 CLOTHS) TOP SCH (04:00)
[2017-01-05] MEDS: levETIRAcetam INJ 500 MG in SODIUM CHLORIDE 0.9% INJ 100 ML IV SCH ×2 (05:18→17:57)
[2017-01-05] MEDS: INSULIN ASPART SUPPLEMENTAL SCALE SQ SCH ×4 (05:18→18:00)
[2017-01-05] MEDS: CHLORHEXIDINE 0.12% (ORAL KIT) 15 ML CUP MT SCH ×3 (08:00→20:00)
[2017-01-05] MEDS: GABAPENTIN 400 MG CAP PO SCH ×3 (08:00→16:40)
[2017-01-05] MEDS: FAMOTIDINE 20 MG TAB PO SCH ×2 (08:00→20:28)
[2017-01-05] MEDS: ESCITALOPRAM OXALATE 20 MG TAB PO SCH (08:00)
--- NOTE | 2017-01-05 08:41 | HHI.CCPN ---
Subjective Remarks/Hospital Course The patient is a 31-year-old female who presents to the emergency department via EMS for seizure. Per EMS patient had approximately 7 seizures that lasted anywhere from 30 seconds to 1 minute prior to arrival. EMS described seizures as tonic-clonic with a short postictal state, lasting several seconds, and then the seizures would restart. EMS were unable to obtain IV access and the patient was allergic to Ativan, therefore, no medications were administered in route to the hospital. EMS stated that the patient has a history of anaphylaxis and stops breathing with Ativan was administered, according to the boyfriend's statement on scene. The patient does have a history of seizures for which she takes multiple medications including Keppra and Neurontin. Upon arrival the patient was seizing, was nonverbal and unable to provide any further information. Patient had at least [address] Cullen while in the ER. She was intubated and placed on propofol for sedation. 1 g IV Keppra was ordered. Labs and CT head were pending. Patient was accepted for admission by critical care medicine service. When I evaluated the patient in the ER she was sedated with propofol, orally intubated on mechanical ventilation. She had one peripheral IV in her hand hence I emergently placed a right IJ central venous catheter under ultrasound guidance for better vascular access prior to transporting patient for imaging studies. History was obtained by reviewing records and discussion with Dr. Cullen and ER nursing staff. Patient has had multiple admissions previously for seizures and pseudoseizures as documented in the record. SUBJ 01/05: Remains intubated heavily sedated with propofol and Versed for seizure control. EEG and neurology consult pending at this time. CT of the head was negative for any acute findings Objective Vital Signs Date Time Temp Pulse Resp B/P (MAP) Pulse Ox O2 Delivery O2 Flow Rate FiO2 01/05/17 08:07 100 28 01/05/17 07:00 67 01/05/17 04:00 98.1 18 138/86 (103) 01/04/17 21:30 Ventilator 01/04/17 18:00 15.00 Intake and Output 01/05/17 01/05/17 01/06/17 08:00 16:00 00:00 Intake Total 1460 ml Output Total 550 ml Balance 910 ml Result Diagram: 01/04/17 1800 01/04/17 1800 Other Results Laboratory Tests Test 01/04/17 20:10 Blood Gas Puncture Site RT RADIAL Blood Gas Patient Temperature 98.6 Blood Gas HCO3 24 mmol/L (22-26) Blood Gas Base Excess 0.1 mmol/L (-2-2) Blood Gas Oxygen Saturation 98 % (90-100) Arterial Blood pH 7.40 (7.380-7.420) Arterial Blood Partial Pressure CO2 40 mmHg (38-42) Arterial Blood Partial Pressure O2 177 mmHG (61-120) Arterial Blood Oxygen Content 18.8 Vol % (12.0-20.0) Arterial Blood Carboxyhemoglobin 0.9 % (0-4) Arterial Blood Methemoglobin 0.5 % (0-2) Blood Gas Hemoglobin 13.4 G/DL (12.0-16.0) Oxygen Delivery Device VENTILATOR Blood Gas Ventilator Setting Blood Gas Inspired Oxygen 50 % Imaging Chest x-ray portable which was personally reviewed: ET tube above mirella, right IJ central line with tip overlying SVC, OG tube in place going below diaphragm, no pneumothorax, poorly inflated lung moreau, no obvious infiltrates Objective Remarks GEN: Morbidly obese female who is intubated heavily sedated HEENT/ Neuro: Sedated, orally intubated, Pallor present, no icterus, tongue/ mucosa moist. Pupils 3 mm bilaterally reactive, DTR 2+, plantars equivocal, moving both upper extremities. Daily sedation limits neuro exam Neck: No JVD Chest/Pulm: on mech vent, good air entry bilaterally, no wheezing or crackles CVS: S1-S2 regular, no murmur GI/abdomen: soft, nontender, bowel sounds sluggish Extremities: warm bilaterally, no edema A/P Assessment and Plan 31-year-old female with: Status epilepticus Acute respiratory failure on mechanical ventilation Morbid obesity Bipolar disorder h/o pseudoseizures H/O Migraine headaches Plan: Neuro: - Sedation with propofol and Versed gtt. - Continue IV Keppra. Continue Neurontin. - CT head negative for acute findings. Neurology consult and EEG pending - Start sedation vacation to coordinate with EEG Cardiovascular: - IV hydration, watch for hypotension. Pulmonary: - Intubated for airway protection. - Continue mechanical ventilation, vent bundle, bronchodilators as needed. - Status spontaneous breathing trials after completion of EEG GI/liver: - Start tube feeds if not extubated Renal/: - IV hydration, strict intake output, monitor and replete electro lites, follow BUN/creatinine. - Avila catheterization for accurate intake output. ID: - No antibiotics at this time. Watch for fever/leukocytosis. Endocrine: - SSI for glycemic control if needed Heme: - Follow CBC Prophylaxis: - Pepcid/SCDs. Lovenox for DVT prophylaxis. Access: Right IJ central venous catheter placed on 01/04/17. Condition critical Time spent on critical care excluding procedures: 30 minutes Soraya Gonzales MD Jan 05, 2017 08:41
[2017-01-05] MEDS: ENOXAPARIN SODIUM 40 MG/0.4 ML SYRINGE SQ SCH (11:02)
[2017-01-05] MEDS: SODIUM CHLOR 0.9% 1000 ML INJ 1,000 ML IV SCH ×2 (11:04→20:29)
[2017-01-05 13:49] LABS: AUTOMATED NEUTROPHIL # 7.7 TH/MM3 (1.8-7.7); BASOPHIL % 0.4 % (0.0-2.0); EOSINOPHIL # 0.2 TH/MM3 (0-0.4); EOSINOPHIL % 1.9 % (0.0-4.0); HEMATOCRIT 35.6 % (35.0-46.0); HEMO FLAGS DIFF FINAL; LYMPH % 17.3 % (9.0-44.0); LYMPHOCYTE # 1.8 TH/MM3 (1.0-4.8); MEAN CELL VOLUME 90.2 FL (80.0-100.0); MEAN CORPUSCULAR HGB CONC 33.3 % (32.0-36.0); MONO % 6.3 % (0.0-8.0); NEUT % 74.1 % (16.0-70.0); PLATELET COUNT 280 TH/MM3 (150-450); RED BLOOD COUNT 3.95 MIL/MM3 (4.00-5.30); RED CELL DISTRIBUTION WIDTH 13.6 % (11.6-17.2); WHITE BLOOD COUNT 10.4 TH/MM3 (4.0-11.0)
[2017-01-05 14:57] LABS: BLOOD UREA NITROGEN 8 MG/DL (7-18); GLOMERULAR FILTRATION RATE 125 ML/MIN (>89)
[2017-01-05 14:58] LABS: ALKALINE PHOSPHATASE 74 U/L (45-117); ALT (GPT) 22 U/L (10-53); ANION GAP 6 MEQ/L (5-15); AST (GOT) 15 U/L (15-37); BICARBONATE 26.8 MEQ/L (21.0-32.0); CHLORIDE 110 MEQ/L (98-107); POTASSIUM 3.5 MEQ/L (3.5-5.1); SODIUM (NA) 143 MEQ/L (136-145); TOTAL BILIRUBIN ADULT 0.2 MG/DL (0.2-1.0)
--- NOTE | 2017-01-05 18:35 | MG ---
cc: JUNE QURESHI M.D. Lab No: Date: 01/05/2017 Age: Sex: F Race: TEST NUMBER [id number] A 31-year-old. Propofol. Seizures, pseudoseizures, psychogenic seizures. MEDICATIONS 1. Keppra. 2. Gabapentin. 3. Lexapro. DESCRIPTION Diffuse 10 Hz rhythms are noted which almost look like sleep spindle-ara type rhythms. Some muscle artifact is seen bitemporally. The recording overall is synchronous and symmetric. Photic stimulation was performed without significant posterior driving. A lot of bifrontal muscle artifact is seen then. Hyperventilation is not performed. IMPRESSION Looks like medication effect mainly. I did not see any epileptiform or seizure activity. Clinical correlation is needed. No hemisphere asymmetries are noted. MD TOMER Shannon/KK /5:28 PM /6:27 PM
--- NOTE | 2017-01-05 19:31 | EKG ---
Date Performed: 01/04/2017 Time Performed: 19:33:51 PTAGE: 31 years EKG: Sinus rhythm NORMAL ECG Since PREVIOUS TRACING , no significant change noted PREVIOUS TRACIN11/14/2016 15.32 DOCTOR: Denice Santiago Interpretating Date/Time 01/05/2017 19:29:23
[2017-01-05] MEDS: ZOLPIDEM TARTRATE 5 MG TAB PO PRN (20:28)
[2017-01-06] VITALS (16 sets, daily range): BP systolic 83–143; BP diastolic 51–92; PULSE 69–146; RESP 12–142; TEMP 98–99.7; O2SAT 93–99
[2017-01-06] MEDS: CHLORHEXIDINE GLUCONATE 2 % 1 PACK (2 CLOTHS) TOP SCH (03:36)
[2017-01-06] MEDS: MORPHINE SULFATE 2 MG/ML INJ IV PUSH PRN ×4 (03:37→17:39)
[2017-01-06] MEDS: RESP: ALBUTEROL 2.5 MG/IPRATROPIUM 0.5 MG NEB (SCH) NEB ×4 (03:48→20:28)
[2017-01-06] MEDS ORDERED: PROMETHAZINE INJ 25 MG/ML VIAL IM ONE ×2 (04:15→15:15)
[2017-01-06 05:26] LABS: ALKALINE PHOSPHATASE 71 U/L (45-117); ALT (GPT) 18 U/L (10-53); ANION GAP 7 MEQ/L (5-15); AST (GOT) 18 U/L (15-37); BICARBONATE 26.1 MEQ/L (21.0-32.0); BLOOD UREA NITROGEN 6 MG/DL (7-18); CHLORIDE 109 MEQ/L (98-107); GLOMERULAR FILTRATION RATE 122 ML/MIN (>89); POTASSIUM 3.5 MEQ/L (3.5-5.1); SODIUM (NA) 142 MEQ/L (136-145); TOTAL BILIRUBIN ADULT 0.2 MG/DL (0.2-1.0)
[2017-01-06] MEDS: INSULIN ASPART SUPPLEMENTAL SCALE SQ SCH ×4 (05:55→18:00)
--- NOTE | 2017-01-06 07:30 | MB ---
cc: SHANNAN LEWIS MD DATE OF CONSULTATION 01/05/2017 REASON FOR CONSULTATION Status epilepticus HISTORY OF PRESENT ILLNESS Ms. Saldivar is a 31-year-old morbidly obese female who presented to the [facility] emergency department via EMS for seizure. During the encounter, the patient is intubated and sedated, thus the medical history is obtained from medical records and discussion with the registered nurse. Per EMS, the patient had approximately seven seizures that lasted anywhere from 30 seconds to one minute prior to arrival described as tonic-clonic was short postictal state. The patient is ALLERGIC TO ATIVAN (anaphylaxis and stops breathing with Ativan). That is according to the boyfriend's statement on the scene. The patient has history of seizures for which he takes multiple medications and takes Keppra and Neurontin. Upon arrival to the emergency room , the patient was seizing and nonverbal. The patient had at least two witnessed seizures per Dr. Cullen in the emergency room. She was intubated and placed on propofol for sedation. One gram of Keppra was ordered. Head CT scan did not reveal any acute abnormality. Labs were unremarkable. REVIEW OF SYSTEMS Unable to obtain. According to review of medical records, it appears a 12-point review of systems is negative except for what is stated in the HPI. PAST MEDICAL HISTORY 1. Bipolar disorder 2. Anxiety/depression 3. Cervical cancer 4. GERD 5. Headaches 6. Kidney stones 7. Chronic back pain 8. Bipolar, PTSD, multiple personalities 9. Pseudoseizures 10. Migraine PAST SURGICAL HISTORY 1. Gallbladder removal 2. Tonsil and adenoid removal 3. Left eye, three surgeries/lazy eye. SOCIAL HISTORY Unable to obtain a review of medical records. Revealed no alcohol use. Uses Vape cigarettes and no substance abuse. ALLERGIES ERYTHROMYCIN, KETOROLAC, ONDANSETRON, PHENOBARB, TRAMADOL, METOCLOPRAMIDE, PROCHLORPERAZINE. MEDICATIONS 1. Keppra 2. Fioricet PHYSICAL EXAMINATION GENERAL: Intubated, sedated, morbidly obese. HEENT: No jaundice. No gaze deviation. No obvious palsy. Pupils 2-3 mm equal and reacting to light. NECK: No JVD. CHEST: Good air entry bilateral. No wheezes. CARDIOVASCULAR: Regular rate and rhythm. No murmur. ABDOMEN: Soft, nontender. EXTREMITIES: No cyanosis, no edema. NEUROLOGIC: Sedated. No gaze deviation. Pupils 3 mm equally reacting to light. Plantars are bilaterally downgoing. DIAGNOSTIC TESTS LABORATORY DATA White blood count 10.4, hemoglobin 11.8, platelet 280. Sodium 143, potassium 3.5 , anion gap 6, BUN 8, creatinine 0.57, lactic acid 1, calcium 8, albumin 3. UDS positive for barbiturates. DIAGNOSTICS IMAGING - Head CT scan without acute intracranial. - Review of medical records revealed an MRI of the brain in August 2015 was also reported as normal. DIAGNOSTIC IMPRESSION 1. Seizures/breakthrough seizure/status epilepticus. The patient is on Keppra and gabapentin. Allergic to Ativan and phenobarb, however, barbiturates were found in her urine. 2. Morbid obesity 3. Bipolar disorder 4. Pseudoseizure 5. Migraine headaches 6. Acute respiratory failure on mechanical ventilation. PLAN 1. Neuro checks q. one hourly. 2. Seizure precautions 3. Increase Keppra to 1000 mg twice daily. 4. Continue home dose of Gabapentin 800 mg three times daily. 5. EEG 6. DVT prophylaxis SCD's. 7. GI prophylaxis. Thank you for the opportunity to participate in the care of your patient. MD ANTHONY Cornelius/ANDRE /10:22 PM /7:11 AM CHUCK
[2017-01-06] MEDS: CHLORHEXIDINE 0.12% (ORAL KIT) 15 ML CUP MT SCH ×2 (08:00→19:11)
[2017-01-06] MEDS: ENOXAPARIN SODIUM 40 MG/0.4 ML SYRINGE SQ SCH (09:18)
[2017-01-06] MEDS: GABAPENTIN 400 MG CAP PO SCH ×3 (09:19→17:39)
[2017-01-06] MEDS: ESCITALOPRAM OXALATE 20 MG TAB PO SCH (09:19)
[2017-01-06] MEDS: levETIRAcetam 1000 MG INJ 100 ML IV SCH ×2 (09:19→20:09)
[2017-01-06] MEDS: FAMOTIDINE 20 MG TAB PO SCH ×2 (09:19→20:09)
[2017-01-06] MEDS: SODIUM CHLORIDE 0.9% FLUSH 10 ML FLUSH IV FLUSH SCH ×2 (09:19→20:53)
--- NOTE | 2017-01-06 11:49 | HHI.CCPN ---
Subjective Remarks/Hospital Course The patient is a 31-year-old female who presents to the emergency department via EMS for seizure. Per EMS patient had approximately 7 seizures that lasted anywhere from 30 seconds to 1 minute prior to arrival. EMS described seizures as tonic-clonic with a short postictal state, lasting several seconds, and then the seizures would restart. EMS were unable to obtain IV access and the patient was allergic to Ativan, therefore, no medications were administered in route to the hospital. EMS stated that the patient has a history of anaphylaxis and stops breathing with Ativan was administered, according to the boyfriend's statement on scene. The patient does have a history of seizures for which she takes multiple medications including Keppra and Neurontin. Upon arrival the patient was seizing, was nonverbal and unable to provide any further information. Patient had at least [address] Cullen while in the ER. She was intubated and placed on propofol for sedation. 1 g IV Keppra was ordered. Labs and CT head were pending. Patient was accepted for admission by critical care medicine service. When I evaluated the patient in the ER she was sedated with propofol, orally intubated on mechanical ventilation. She had one peripheral IV in her hand hence I emergently placed a right IJ central venous catheter under ultrasound guidance for better vascular access prior to transporting patient for imaging studies. History was obtained by reviewing records and discussion with Dr. Cullen and ER nursing staff. Patient has had multiple admissions previously for seizures and pseudoseizures as documented in the record. SUBJ 01/05: Remains intubated heavily sedated with propofol and Versed for seizure control. EEG and neurology consult pending at this time. CT of the head was negative for any acute findings. 01/06: Awake and alert. Extubated yesterday. Tolerating by mouth diet. Objective Vital Signs Date Time Temp Pulse Resp B/P (MAP) Pulse Ox O2 Delivery O2 Flow Rate FiO2 01/06/17 07:57 97 21 01/06/17 04:00 98.0 97 28 98/56 (70) 01/05/17 14:08 Nasal Cannula 4.00 Intake and Output 01/06/17 01/06/17 01/07/17 08:00 16:00 00:00 Intake Total 1455 ml Output Total 1850 ml Balance -395 ml Result Diagram: 01/05/17 1339 01/06/17 0345 Imaging Chest x-ray portable which was personally reviewed: ET tube above mirella, right IJ central line with tip overlying SVC, OG tube in place going below diaphragm, no pneumothorax, poorly inflated lung moreau, no obvious infiltrates Objective Remarks GEN: Morbidly obese female, sitting up in bed in no acute distress HEENT/ Neuro: Awake alert oriented 3, grossly nonfocal, moving all 4 extremities., Pallor present, no icterus, tongue/ mucosa moist. Pupils 3 mm bilaterally reactive, DTR 2+, plantars equivocal, moving both upper extremities. Neck: Right IJ central line in place Chest/Pulm: good air entry bilaterally, no wheezing or crackles CVS: S1-S2 regular, no murmur GI/abdomen: soft, nontender, bowel sounds sluggish Extremities: warm bilaterally, no edema A/P Assessment and Plan 31-year-old female with: Status epilepticus Acute respiratory failure Morbid obesity Bipolar disorder h/o pseudoseizures H/O Migraine headaches Plan: Neuro: -Off all sedation - Continue IV Keppra. Continue Neurontin. - CT head negative for acute findings. Neurology consult. EEG with no seizure activity. Cardiovascular: - IV hydration, watch for hypotension. Pulmonary: - Intubated for airway protection. Extubated on 01/05, tolerating well - vent bundle, bronchodilators as needed. GI/liver: -Advance by mouth diet as tolerated Renal/: -Saline lock IV fluids, strict intake output, monitor and replete electro lites , follow BUN/creatinine. -Discontinue Avila catheter ID: - No antibiotics at this time. Watch for fever/leukocytosis. Endocrine: - SSI for glycemic control if needed Heme: - Follow CBC Prophylaxis: - Pepcid/SCDs. Lovenox for DVT prophylaxis. Access: Right IJ central venous catheter placed on 01/04/17. Place peripheral IVs and discontinue central line Zeus South MD Jan 06, 2017 11:49
[2017-01-06] MEDS ORDERED: LORazepam 2 MG/ML VIAL ONE ×2 (14:00→14:17)
[2017-01-06] MEDS ORDERED: LORazepam 2 MG/ML VIAL IV PUSH ONE ×3 (14:05→14:20)
--- NOTE | 2017-01-06 14:59 | HHI.PR ---
Addendum to Inpatient Note Addendum Reason: Additional Documentation Additional Information called to re-evaluate pt as she appeared to be having a seizure. Pt appeared to be having jerking movements in both upper extremities at shoulders. Pupils 4mm bilt reactive. Not responding to commands. No incontinence noted. Stat EEG and Ativan 2mg IV ordered. Stopped having jerking movements in about 3-4 minutes. EEG with no evidence of seizure activity when she had a recurrent event while hooked up to EEG per my d/w Dr. Orantes. We both feel based on EEG findings during episode that there is high likelihood of these being pseudoseizures. Psychiatry consult requested. Zeus South MD Jan 06, 2017 14:59
[2017-01-06] MEDS: ZOLPIDEM TARTRATE 5 MG TAB PO PRN (20:09)
[2017-01-06] MEDS: diphenhydrAMINE HCL 50 MG/ML VIAL IV PRN (20:54)
[2017-01-07] VITALS: BP 118/76; PULSE 87; RESP 19; TEMP 98.5; O2SAT 92
[2017-01-07] MEDS: MORPHINE SULFATE 2 MG/ML INJ IV PUSH PRN ×2 (02:07→06:41)
[2017-01-07] MEDS: diphenhydrAMINE HCL 50 MG/ML VIAL IV PRN ×3 (02:23→11:55)
[2017-01-07] MEDS: CHLORHEXIDINE GLUCONATE 2 % 1 PACK (2 CLOTHS) TOP SCH (03:51)
[2017-01-07 04:00] VITALS: BP 107/53; PULSE 75; RESP 18; TEMP 98.7; O2SAT 93
[2017-01-07] MEDS: RESP: ALBUTEROL 2.5 MG/IPRATROPIUM 0.5 MG NEB (SCH) NEB ×2 (04:00→10:00)
[2017-01-07] MEDS: INSULIN ASPART SUPPLEMENTAL SCALE SQ SCH ×2 (05:41)
[2017-01-07 08:00] VITALS: BP 109/72; PULSE 77; RESP 23; TEMP 98.2; O2SAT 95
[2017-01-07] MEDS: CHLORHEXIDINE 0.12% (ORAL KIT) 15 ML CUP MT SCH (08:00)
--- NOTE | 2017-01-07 08:00 | HHI.PR ---
Subjective Remarks In bed appears in nad. Eating . No seizures. No chest pain or sob. No n/ v/d/c. Walked with PT without problems. Objective Vitals Vital Signs Date Time Temp Pulse Resp B/P (MAP) Pulse Ox O2 Delivery O2 Flow Rate FiO2 01/07/17 04:00 98.7 75 18 107/53 (71) 93 01/07/17 00:00 98.5 87 19 118/76 (90) 92 01/06/17 20:28 96 21 01/06/17 20:00 98.8 95 23 119/59 (79) 96 01/06/17 18:00 105 22 135/65 (88) 93 01/06/17 17:00 138 142 131/92 (105) 96 01/06/17 16:00 99.7 117 30 128/84 (99) 96 01/06/17 15:58 102 17 121/75 (90) 95 01/06/17 14:01 146 110 83/58 (66) 95 01/06/17 13:15 85 15 119/69 (86) 97 01/06/17 12:01 99.1 81 16 143/75 (97) 97 01/06/17 11:01 80 12 121/63 (82) 95 01/06/17 10:01 94 29 134/74 (94) 96 01/06/17 09:00 77 24 106/71 (83) 99 01/06/17 08:01 98.1 69 22 99/54 (69) 96 I/O 01/06/17 01/06/17 01/06/17 01/07/17 01/07/17 01/07/17 07:00 15:00 23:00 07:00 15:00 23:00 Intake Total 1455 ml 100 ml 1210 ml 720 ml Output Total 1850 ml 1375 ml Balance -395 ml 100 ml -165 ml 720 ml Intake Oral 480 ml 1110 ml 720 ml IV Total 975 ml 100 ml 100 ml Output Urine Total 1850 ml 1375 ml # Voids 3 # Bowel Movements 0 0 0 Result Diagram: 01/05/17 1339 01/06/17 0345 Imaging Last Impressions Head CT 01/04/17 0000 Signed Impressions: Service Date/Time: Wednesday, January 04, 2017 22:36 - CONCLUSION: Normal examination. Kody Zepeda MD Chest X-Ray 01/04/17 0000 Signed Impressions: Service Date/Time: Wednesday, January 04, 2017 19:02 - CONCLUSION: 1. Right IJ line tip is in the SVC. No pneumothorax is present. 2. Endotracheal tube distal tip measures 2.1 cm from the mirella. Christian Liz MD Objective Remarks GENERAL: Morbidly obese female, sitting up in bed in no acute distress SKIN: Warm and dry. HEAD: Atraumatic. Normocephalic. EYES: Pupils equal and round. No scleral icterus. No injection or drainage. ENT: No nasal bleeding or discharge. Mucous membranes pink and moist. NECK: Trachea midline. No JVD. CARDIOVASCULAR: Regular rate and rhythm. RESPIRATORY: No accessory muscle use. Clear to auscultation. Breath sounds equal bilaterally. GASTROINTESTINAL: Abdomen soft, non-tender, nondistended. Hepatic and splenic margins not palpable. MUSCULOSKELETAL: Extremities without clubbing, cyanosis, or edema. No obvious deformities. NEUROLOGICAL: Awake and alert. No obvious cranial nerve deficits. Motor grossly within normal limits. Five out of 5 muscle strength in the arms and legs. Normal speech. PSYCHIATRIC: Appropriate mood and affect; insight and judgment normal. A/P Assessment and Plan 31-year-old female with: Status epilepticus Acute respiratory failure Morbid obesity. BMI 48.7 . 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 Bipolar disorder h/o pseudoseizures H/O Migraine headaches Neuro: -Off all sedation - Continue IV Keppra. Continue Neurontin. - CT head negative for acute findings. Neurology consult. EEG with no seizure activity. - Consult psych as poss pseudoseizures Cardiovascular: - IV hydration, watch for hypotension. Pulmonary: - Intubated for airway protection. Extubated on 01/05, tolerating well - vent bundle, bronchodilators as needed. GI/liver: -Advance by mouth diet as tolerated Renal/: -Saline lock IV fluids, strict intake output, monitor and replete electro lites , follow BUN/creatinine. -Discontinue Avila catheter ID: - No antibiotics at this time. Watch for fever/leukocytosis. Endocrine: - SSI for glycemic control if needed Heme: - Follow CBC Prophylaxis: - Pepcid/SCDs. Lovenox for DVT prophylaxis. Discussed with the patient, nurse Cleared by Dr Orantes for DC neurology Cleared by Dr Peña Patient improved, no seizures, walking with PT. Eating well. Discharged home in stable condition to f/u with PCP and consultants. [id number] same dose of ekppra at DC Keppra 500 mg po bid per Dr Orantes neurology. Deloris Ocampo MD Jan 07, 2017 08:00
--- NOTE | 2017-01-07 08:15 | MG ---
cc: JUNE QURESHI M.D. Lab No: [id number] Date: 01/07/2017 Age: 31 Sex: F Race: ___ INDICATIONS This is a 31-year-old. Ativan given prior. Hyperventilation not performed admitted for seven seizures, history of pseudoseizures. MEDICATIONS 1. Lexapro 2. Gabapentin 3. Keppra 4. Insulin 5. Ambien 6. Ativan DESCRIPTION The recording starts with a normal symmetric beta rhythm background, some bifrontal muscle artifact is noted. Upper body shaking is seen, but that this correlates with some bifrontal muscle artifact. Some movement artifact is noted. About a 13 Hz posterior rhythm is seen 50 microvolts symmetric and synchronous. No hemisphere asymmetries are noted. No epileptiform or seizure activity is seen. Photic stimulation was performed without significant posterior driving. The patient has some multiple spells of upper body shaking, breath-holding, arching of back, none of those correlate with any seizure activity. IMPRESSION All of these episodes are not electroencephalographic seizures. Clinical correlation is needed. MD TOMER Shannon/ANDRE /7:49 AM /8:00 AM
--- NOTE | 2017-01-07 08:32 | HHI.DS ---
Discharge Summary Admission Date Jan 04, 2017 at 19:00 Discharge Date: Jan 07, 2017 Admitting Diagnosis status epilepticus (1) Pseudoseizure ICD Code: G40.89 - Pseudoseizure Status: Acute Procedures intubation/extubation Brief History - From Admission HPI The patient is a 31-year-old female who presents to the emergency department via EMS for seizure. Per EMS patient had approximately 7 seizures that lasted anywhere from 30 seconds to 1 minute prior to arrival. EMS described seizures as tonic-clonic with a short postictal state, lasting several seconds, and then the seizures would restart. EMS were unable to obtain IV access and the patient was allergic to Ativan, therefore, no medications were administered in route to the hospital. EMS stated that the patient has a history of anaphylaxis and stops breathing with Ativan was administered, according to the boyfriend's statement on scene. The patient does have a history of seizures for which she takes multiple medications including Keppra and Neurontin. Upon arrival the patient was seizing, was nonverbal and unable to provide any further information. Patient had at least [address] Cullen while in the ER. She was intubated and placed on propofol for sedation. 1 g IV Keppra was ordered. Labs and CT head were pending. Patient was accepted for admission by critical care medicine service. When I evaluated the patient in the ER she was sedated with propofol, orally intubated on mechanical ventilation. She had one peripheral IV in her hand hence I emergently placed a right IJ central venous catheter under ultrasound guidance for better vascular access prior to transporting patient for imaging studies. History was obtained by reviewing records and discussion with Dr. Cullen and ER nursing staff. Patient has had multiple admissions previously for seizures and pseudoseizures as documented in the record. [facility] Past Medical History Arthritis: No Autoimmune Disease: No Blood Disorders: No Bipolar Disorder: Yes Anxiety: Yes Depression: Yes Cancer: Yes (cervical cancer - removed) Cardiovascular Problems: No Chemotherapy: No Cerebrovascular Accident: No Diabetes: No Diminished Hearing: No Endocrine: No Gastrointestinal Disorders: Yes (nausea all the time) GERD: Yes Genitourinary: No Headaches: Yes Immune Disorder: No Implanted Vascular Access Dvce: No Kidney Stones: Yes (passed stone in 2011) Musculoskeletal: Yes (back pain) Psychiatric: Yes (Bipolar, ptsd, multiple personalties) Reproductive: Yes Immunizations Current: Yes Migraines: Yes Radiation Therapy: No Seizures: Yes Thyroid Disease: No Ulcer: Yes (PEPTIC) Tetanus Vaccination: < 5 Years Influenza Vaccination: No ?: Unknown : 0 Para: 0 Miscarriage: 0 : 0 Ovarian Cysts: Yes (3 lap surgeries) Past Surgical History Abdominal Surgery: Yes (gallbladder removed, tonsils and adenoids removed) Cardiac Surgery: No Cholecystectomy: Yes Ear Surgery: No Endocrine Surgery: No Eye Surgery: Yes (left eye surgeries X3 (lazy eye)) Genitourinary Surgery: No Gynecologic Surgery: Yes Neurologic Surgery: No Oral Surgery: No Thoracic Surgery: No Tonsillectomy: Yes Other Surgery: Yes (cervical leep) Social History Alcohol Use: No Tobacco Use: Yes (vape) Substance Use: No Allergies-Medications (Allergen,Severity, Reaction): Coded Allergies: erythromycin base (Unverified Allergy, Severe, Fever, 12/31/16) ketorolac (Unverified Allergy, Severe, Urinary Freq (Inc/Dec), 12/31/16) ondansetron (Unverified Allergy, Severe, Twitching, 12/31/16) phenobarbital (Unverified Allergy, Severe, Seizures, 12/31/16) Patient states that she is not allergic to phenobarbital tramadol (Unverified Allergy, Severe, Urinary Freq (Inc/Dec), 12/31/16) metoclopramide (Unverified Adverse Reaction, Intermediate, 12/31/16) SHAKING *MDRO Multi-Drug Resistant Organism (Verified Adverse Reaction, Unknown, 12/31/16) MRSA PCR screen positive - 04/23/2015 prochlorperazine (Unverified Adverse Reaction, Unknown, AGITATION, 12/31/16 ) Reported Meds & Prescriptions Reported Meds & Active Scripts Active Keppra (Levetiracetam) 500 Mg Tab 500 Mg PO Q12HR Fioricet (Fquggpfedf-Onbsdykdrpfxu-Wdiwuavj) 50-300-40 Mg Cap 1 Cap PO Q4H PRN Reported Flagyl (Metronidazole) 500 Mg Tab 500 Mg PO BID Imitrex (Sumatriptan Succinate) 100 Mg Tab 100 Mg PO ONCE PRN If a satisfactory response has not been obtained at 2 hours, a second dose may be administered Gabapentin 800 Mg Tab 800 Mg PO TID Tizanidine (Tizanidine HCl) 4 Mg Tab 4 Mg PO HS Ambien (Zolpidem Tartrate) 5 Mg Tab 5 Mg PO HS PRN Lexapro (Escitalopram Oxalate) 20 Mg Tab 20 Mg PO DAILY Lexapro (Escitalopram Oxalate) 10 Mg Tab 10 Mg PO DAILY Review of Systems ROS Limitations: Clinical Condition, Altered Mental Status, sedation and oral intubation. CBC/BMP: 01/05/17 1339 01/06/17 0345 Significant Findings Laboratory Tests Test 01/04/17 18:00 01/04/17 18:20 01/04/17 19:00 01/04/17 20:10 White Blood Count 11.5 TH/MM3 (4.0-11.0) Chloride Level 108 MEQ/L (98-107) Prolactin 45 ng/mL (4.8 - 23.3) Urine Barbiturates Screen POS (NEG) Arterial Blood Partial Pressure O2 177 mmHG (61-120) Test 01/04/17 23:15 01/05/17 13:39 01/06/17 03:45 Red Blood Count 3.95 MIL/MM3 (4.00-5.30) Neutrophils (%) (Auto) 74.1 % (16.0-70.0) Albumin 3.0 GM/DL (3.4-5.0) 2.7 GM/DL (3.4-5.0) Calcium Level 8.0 MG/DL (8.5-10.1) 7.8 MG/DL (8.5-10.1) Chloride Level 110 MEQ/L (98-107) 109 MEQ/L (98-107) Blood Urea Nitrogen 6 MG/DL (7-18) Total Protein 6.2 GM/DL (6.4-8.2) Imaging Last Impressions Head CT 01/04/17 0000 Signed Impressions: Service Date/Time: Wednesday, January 04, 2017 22:36 - CONCLUSION: Normal examination. Kody Zepeda MD Chest X-Ray 01/04/17 0000 Signed Impressions: Service Date/Time: Wednesday, January 04, 2017 19:02 - CONCLUSION: 1. Right IJ line tip is in the SVC. No pneumothorax is present. 2. Endotracheal tube distal tip measures 2.1 cm from the mirella. Christian Liz MD PE at Discharge GENERAL: Morbidly obese female, sitting up in bed in no acute distress SKIN: Warm and dry. HEAD: Atraumatic. Normocephalic. EYES: Pupils equal and round. No scleral icterus. No injection or drainage. ENT: No nasal bleeding or discharge. Mucous membranes pink and moist. NECK: Trachea midline. No JVD. CARDIOVASCULAR: Regular rate and rhythm. RESPIRATORY: No accessory muscle use. Clear to auscultation. Breath sounds equal bilaterally. GASTROINTESTINAL: Abdomen soft, non-tender, nondistended. Hepatic and splenic margins not palpable. MUSCULOSKELETAL: Extremities without clubbing, cyanosis, or edema. No obvious deformities. NEUROLOGICAL: Awake and alert. No obvious cranial nerve deficits. Motor grossly within normal limits. Five out of 5 muscle strength in the arms and legs. Normal speech. PSYCHIATRIC: Appropriate mood and affect; insight and judgment normal. Hospital Course 31-year-old female with: Status epilepticus Acute respiratory failure Morbid obesity. BMI 48.7 . 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 Bipolar disorder h/o pseudoseizures H/O Migraine headaches Neuro: -Off all sedation - Continue IV Keppra. Continue Neurontin. - CT head negative for acute findings. Neurology consult. EEG with no seizure activity. - Consult psych as poss pseudoseizures Cardiovascular: - IV hydration, watch for hypotension. Pulmonary: - Intubated for airway protection. Extubated on 01/05, tolerating well - vent bundle, bronchodilators as needed. GI/liver: -Advance by mouth diet as tolerated Renal/: -Saline lock IV fluids, strict intake output, monitor and replete electro lites , follow BUN/creatinine. -Discontinue Avila catheter ID: - No antibiotics at this time. Watch for fever/leukocytosis. Endocrine: - SSI for glycemic control if needed Heme: - Follow CBC Prophylaxis: - Pepcid/SCDs. Lovenox for DVT prophylaxis. Discussed with the patient, nurse Cleared by Dr Orantes for DC neurology Cleared by Dr Peña Patient improved, no seizures, walking with PT. Eating well. Discharged home in stable condition to f/u with PCP and consultants. [id number] same dose of Keppra at DC Keppra 500 mg po bid per Dr Orantes neurology. Pt Condition on Discharge: Stable Discharge Disposition: Discharge Home Discharge Time: > 30 minutes Discharge Instructions DIET: Follow Instructions for: As Tolerated, No Restrictions Activities you can perform: Regular-No Restrictions Follow up Referrals: Neurology - 1 Week with Erika Orantes MD PCP Follow-up - 2-3 Days Continued Medications: Rhgaffoagc-Yrabgtxkaghir-Tvacvhxt (Fioricet) 50-300-40 Mg Cap 1 CAP PO Q4H PRN for HEADACHE, #14 CAP 0 Refills Escitalopram (Lexapro) 10 Mg Tab 10 MG PO DAILY, #30 TAB 0 Refills Escitalopram (Lexapro) 20 Mg Tab 20 MG PO DAILY, #30 TAB 0 Refills Gabapentin (Gabapentin) 800 Mg Tab 800 MG PO TID, #90 TAB 0 Refills Levetiracetam (Keppra) 500 Mg Tab 500 MG PO Q12HR for Control Seizures, #60 TAB Metronidazole (Flagyl) 500 Mg Tab 500 MG PO BID for Infection, TAB 0 Refills Sumatriptan (Imitrex) 100 Mg Tab 100 MG PO ONCE PRN for MIGRAINE HEADACHE, TAB 0 Refills If a satisfactory response has not been obtained at 2 hours, a second dose may be administered Tizanidine (Tizanidine) 4 Mg Tab 4 MG PO HS for Muscle Spasm, TAB 0 Refills Zolpidem (Ambien) 5 Mg Tab 5 MG PO HS PRN for INSOMNIA, TAB 0 Refills Deloris Ocampo MD Jan 07, 2017 08:32
[2017-01-07] MEDS ORDERED: levETIRAcetam 500 MG TAB PO SCH ×2 (09:00→21:00)
[2017-01-07] MEDS: FAMOTIDINE 20 MG TAB PO SCH (09:36)
[2017-01-07] MEDS: GABAPENTIN 400 MG CAP PO SCH ×2 (09:36→11:55)
[2017-01-07] MEDS: ESCITALOPRAM OXALATE 20 MG TAB PO SCH (09:36)
[2017-01-07] MEDS: ENOXAPARIN SODIUM 40 MG/0.4 ML SYRINGE SQ SCH (09:37)
[2017-01-07] MEDS: SODIUM CHLORIDE 0.9% FLUSH 10 ML FLUSH IV FLUSH SCH (09:37)
[2017-01-07 10:00] VITALS: PULSE 76; RESP 19; O2SAT 95
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
[2017-01-07 10:15] VITALS: O2SAT 96
== END 2017-01-07 13:26 | disposition home or self-care (01) | DRG 880 ==
LOC: NEPC 17:52 → NEDH 19:00 → HIMN 22:55
PROVIDERS: ADMIT Hospitalist; ATTEND Hospitalist
PROC: 5A1935Z Respiratory Ventilation, Less than 24 Consecutive Hours (ICD-10-PCS; principal; 2017-01-04)
PROC: 02HV33Z Insertion of Infusion Device into Superior Vena Cava, Percutaneous Approach (ICD-10-PCS; 2017-01-04)
PROC: B543ZZA Ultrasonography of Right Jugular Veins, Guidance (ICD-10-PCS; 2017-01-04)
PROC: 0BH17EZ Insertion of Endotracheal Airway into Trachea, Via Natural or Artificial Opening (ICD-10-PCS; 2017-01-04)
DX: F44.5 Conversion disorder with seizures or convulsions (principal); J96.00 Acute respiratory failure, unspecified whether with hypoxia or hypercapnia; Z68.42 Body mass index [BMI] 45.0-49.9, adult; E66.01 Morbid (severe) obesity due to excess calories; K21.9 Gastro-esophageal reflux disease without esophagitis; G89.29 Other chronic pain; M54.9 Dorsalgia, unspecified; F17.290 Nicotine dependence, other tobacco product, uncomplicated; F31.9 Bipolar disorder, unspecified; F41.9 Anxiety disorder, unspecified; F43.10 Post-traumatic stress disorder, unspecified; Z62.810 Personal history of physical and sexual abuse in childhood; Z85.41 Personal history of malignant neoplasm of cervix uteri; Z88.1 Allergy status to other antibiotic agents; Z88.5 Allergy status to narcotic agent; Z88.8 Allergy status to other drugs, medicaments and biological substances
CPT/HCPCS: 31500; 36600; 43753; 51702; 70450; 71010; 76937; 80053; 80307; 81001; 82805; 82948; 83605; 83735; 84146; 85025; 87641; 93005; 94002; 94003; 94150; 94640; 94664; 95819; 96374; 96375; 96376; J0330; J1200; J1650; J1953; J2060; J2250; J2270; J2550; J3010; J7030

== ENCOUNTER 2017-01-20 20:02 | Emergency (ER) | payer OTHER ==
[~2017-01-20 20:02] MED LIST changes: +HYDR-3583 PO
[2017-01-20 20:05] VITALS: BP 146/76; PULSE 97; RESP 20; TEMP 97.8; O2SAT 100
[2017-01-20] MEDS ORDERED: levETIRAcetam INJ 500 MG in SODIUM CHLORIDE 0.9% INJ 100 ML IV ONE (20:45)
[2017-01-20] MEDS ORDERED: ORPHENADRINE INJ 60 MG/2 ML AMP IM ONE (20:45)
[2017-01-20] MEDS ORDERED: SODIUM CHLORIDE 0.9% FLUSH 10 ML FLUSH IVF PRN (20:45)
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
[2017-01-20 21:49] LABS: AUTOMATED NEUTROPHIL # 7.3 TH/MM3 (1.8-7.7); BASOPHIL # 0.1 TH/MM3 (0-0.2); BASOPHIL % 0.6 % (0.0-2.0); EOSINOPHIL # 0.2 TH/MM3 (0-0.4); EOSINOPHIL % 1.5 % (0.0-4.0); HEMATOCRIT 37.2 % (35.0-46.0); HEMO FLAGS DIFF FINAL; LYMPHOCYTE # 2.7 TH/MM3 (1.0-4.8); MEAN CELL VOLUME 88.2 FL (80.0-100.0); MEAN CORPUSCULAR HEMOGLOBIN 29.3 PG (27.0-34.0); MEAN CORPUSCULAR HGB CONC 33.3 % (32.0-36.0); MONO % 4.9 % (0.0-8.0); PLATELET COUNT 360 TH/MM3 (150-450); RED BLOOD COUNT 4.22 MIL/MM3 (4.00-5.30); RED CELL DISTRIBUTION WIDTH 13.8 % (11.6-17.2); WHITE BLOOD COUNT 10.7 TH/MM3 (4.0-11.0)
[2017-01-20 22:03] LABS: BLOOD, URINE NEG (NEG); GLUCOSE,URINE NEG (NEG); KETONE, URINE NEG (NEG); MUCUS URINE MOD /lpf (OCC); NITRITE,URINE NEG (NEG); SQUAMOUS EPITHELIAL CELL URINE 35 /hpf (0-5); TRANSITIONAL EPI CELLS, URINE 1 /hpf; URINE COLOR YELLOW (YELLW/STRAW)
[2017-01-20 22:05] VITALS: O2SAT 97
[2017-01-20 22:13] LABS: ALT (GPT) 19 U/L (10-53); ANION GAP 8 MEQ/L (5-15); AST (GOT) 13 U/L (15-37); BICARBONATE 24.9 MEQ/L (21.0-32.0); BLOOD UREA NITROGEN 13 MG/DL (7-18); CHLORIDE 106 MEQ/L (98-107); GLOMERULAR FILTRATION RATE 102 ML/MIN (>89); POTASSIUM 3.9 MEQ/L (3.5-5.1); SODIUM (NA) 139 MEQ/L (136-145)
[2017-01-20 22:16] LABS: ALKALINE PHOSPHATASE 93 U/L (45-117); TOTAL BILIRUBIN ADULT 0.2 MG/DL (0.2-1.0)
[2017-01-20] MEDS ORDERED: CYCL10TA PO (22:26)
[2017-01-20] MEDS ORDERED: TYLETAB34 PO (22:26)
--- NOTE | 2017-01-21 05:00 | EKG ---
Date Performed: 01/20/2017 Time Performed: 20:30:16 PTAGE: 31 years EKG: Baseline artifact present Sinus rhythm NORMAL ECG No significant change from prior electrocardiogram. PREVIOUS TRACING : 01/04/2017 19.33 DOCTOR: Angelo Guzman Interpretating Date/Time 01/21/2017 04:59:29
== END 2017-01-20 22:52 | disposition home or self-care (01) ==
LOC: NEPE 20:02
DX: R56.9 Unspecified convulsions (principal); M54.5 Low back pain; G89.29 Other chronic pain; F31.9 Bipolar disorder, unspecified
CPT/HCPCS: 80053; 81001; 83605; 85025; 93005; 96372; 96374; 99284; J1953; J2360

== ENCOUNTER 2017-01-27 17:14 | Emergency (ER) | payer OTHER ==
[~2017-01-27] VITALS: Ht 167.6 cm; Wt 129.6 kg
[~2017-01-27 17:14] MED LIST changes: +CYCL10TA PO; -HYDR-3583 PO; +TYLETAB34 PO
[2017-01-27 17:16] VITALS: BP 158/101; PULSE 88; RESP 20; TEMP 98.7; O2SAT 100
[2017-01-27] MEDS ORDERED: VENL75TA PO (17:48)
[2017-01-27] MEDS ORDERED: SODIUM CHLOR 0.9% 1000 ML INJ 1,000 ML IV SCH (17:58)
[2017-01-27] MEDS ORDERED: SODIUM CHLORIDE 0.9% FLUSH 10 ML FLUSH IV FLUSH PRN (18:00)
[2017-01-27] MEDS ORDERED: ONDANSETRON HCL 4 MG/2 ML VIAL IVP ONE (18:00)
[2017-01-27] MEDS ORDERED: PROMETHAZINE INJ 25 MG/ML VIAL IM ONE (18:15)
[2017-01-27 18:17] VITALS: RESP 17; O2SAT 99
[2017-01-27] MEDS ORDERED: AZITHROMYCIN 250 MG TAB PO ONE (18:30)
[2017-01-27] MEDS ORDERED: MORPHINE SULFATE 4 MG/ML INJ IV PUSH ONE (18:30)
[2017-01-27] MEDS ORDERED: cefTRIAXone INJ 1,000 MG in SODIUM CHLORIDE 0.9% INJ 100 ML IV ONE (18:30)
[2017-01-27 18:48] VITALS: RESP 17
--- NOTE | 2017-01-27 19:20 | PD ---
Physical Exam Narrative GENERAL: SKIN: Warm and dry. HEAD: Atraumatic. Normocephalic. EYES: Pupils equal and round. No scleral icterus. No injection or drainage. ENT: No nasal bleeding or discharge. Mucous membranes pink and moist. NECK: Trachea midline. No JVD. CARDIOVASCULAR: Regular rate and rhythm. RESPIRATORY: No accessory muscle use. Clear to auscultation. Breath sounds equal bilaterally. GASTROINTESTINAL: Abdomen soft, non-tender, nondistended. MUSCULOSKELETAL: Extremities without clubbing, cyanosis, or edema. No obvious deformities. NEUROLOGICAL: Awake and alert. No obvious cranial nerve deficits. Motor grossly within normal limits. Five out of 5 muscle strength in the arms and legs. Normal speech. PSYCHIATRIC: Appropriate mood and affect; insight and judgment normal. Data Data Last Documented VS Vital Signs Date Time Temp Pulse Resp B/P (MAP) Pulse Ox O2 Delivery O2 Flow Rate FiO2 01/27/17 18:48 17 01/27/17 18:17 99 Room Air 01/27/17 17:50 77 01/27/17 17:16 98.7 Orders Orders Complete Blood Count With Diff (01/27/17 17:21) Basic Metabolic Panel (Bmp) (01/27/17 17:21) Urinalysis - C+S If Indicated (01/27/17 17:21) Ed Urine Pregnancytest Poc (01/27/17 17:21) Gc And Chlamydia Pcr (01/27/17 17:21) Wet Prep Profile (01/27/17 17:56) Iv Access Insert/Monitor (01/27/17 17:58) Ecg Monitoring (01/27/17 17:58) Oximetry (01/27/17 17:58) Ondansetron Inj (Zofran Inj) (01/27/17 18:00) Sodium Chlor 0.9% 1000 Ml Inj (Ns 1000 M (01/27/17 17:58) Sodium Chloride 0.9% Flush (Ns Flush) (01/27/17 18:00) Promethazine Inj (Phenergan Inj) (01/27/17 18:15) Ceftriaxone Inj (Rocephin Inj) (01/27/17 18:30) Azithromycin (Zithromax) (01/27/17 18:30) Morphine Inj (Morphine Inj) (01/27/17 18:30) Urine Culture (01/27/17 18:50) Labs Laboratory Tests Test 01/27/17 18:10 01/27/17 18:50 Clue Cells (Wet Prep) NONE SEEN Vaginal Trichomonas (Wet Prep) NONE SEEN Vaginal Yeast (Wet Prep) NONE SEEN White Blood Count 5.8 TH/MM3 Red Blood Count 4.46 MIL/MM3 Hemoglobin 13.4 GM/DL Hematocrit 39.6 % Mean Corpuscular Volume 88.9 FL Mean Corpuscular Hemoglobin 30.1 PG Mean Corpuscular Hemoglobin Concent 33.9 % Red Cell Distribution Width 13.7 % Platelet Count 255 TH/MM3 Mean Platelet Volume 9.0 FL Neutrophils (%) (Auto) 66.5 % Lymphocytes (%) (Auto) 22.9 % Monocytes (%) (Auto) 8.0 % Eosinophils (%) (Auto) 1.7 % Basophils (%) (Auto) 0.9 % Neutrophils # (Auto) 3.8 TH/MM3 Lymphocytes # (Auto) 1.3 TH/MM3 Monocytes # (Auto) 0.5 TH/MM3 Eosinophils # (Auto) 0.1 TH/MM3 Basophils # (Auto) 0.1 TH/MM3 CBC Comment DIFF FINAL Differential Comment Urine Color YELLOW Urine Turbidity HAZY Urine pH 6.0 Urine Specific Orrick 1.031 Urine Protein TRACE mg/dL Urine Glucose (UA) NEG mg/dL Urine Ketones NEG mg/dL Urine Occult Blood TRACE Urine Nitrite NEG Urine Bilirubin NEG Urine Urobilinogen LESS THAN 2.0 MG/DL Urine Leukocyte Esterase SMALL Urine RBC 1 /hpf Urine WBC 16 /hpf Urine Squamous Epithelial Cells 13 /hpf Urine Bacteria MANY /hpf Urine Mucus MANY /lpf Microscopic Urinalysis Comment CULTURE INDICATED Blood Urea Nitrogen 10 MG/DL Creatinine 0.77 MG/DL Random Glucose 78 MG/DL Calcium Level 8.5 MG/DL Sodium Level 137 MEQ/L Potassium Level 4.0 MEQ/L Chloride Level 105 MEQ/L Carbon Dioxide Level 23.2 MEQ/L Anion Gap 9 MEQ/L Estimat Glomerular Filtration Rate 88 ML/MIN [facility] Medical Record Reviewed: Yes Supervised Visit with MANSOOR: Yes Narrative Course RECEOVED SIGN OUT FROM [facility]. PENDING LABS...GC AND [facility] WILL NOT RETURN TONIGHT AFTER DISCUSSING WITH LAB, PATIENT ALREADY RECEIVED AZITHROMYCIN , AND TRICH WAS NEGATIVE SO WILL D/C HOME AFTER EMPIRIC TREATMENT WITH ROCEPHIN GIVEN PRIOR TO D/C HOME Diagnosis Primary Impression: PELVIC PAIN Patient Instructions: General Instructions Disposition: 01 DISCHARGE HOME Condition: Stable Wild Kirk MD Jan 27, 2017 19:20
[2017-01-27 19:23] LABS: BACTERIA, URINE MANY /hpf; BLOOD, URINE TRACE (NEG); COMMENT (UR) CULTURE INDICATED; CULTURE IF INDICATED CULTURE INDICATED; GLUCOSE,URINE NEG (NEG); KETONE, URINE NEG (NEG); MUCUS URINE MANY /lpf (OCC); NITRITE,URINE NEG (NEG); SQUAMOUS EPITHELIAL CELL URINE 13 /hpf (0-5); URINE COLOR YELLOW (YELLW/STRAW)
[2017-01-27 19:25] LABS: AUTOMATED NEUTROPHIL # 3.8 TH/MM3 (1.8-7.7); BASOPHIL # 0.1 TH/MM3 (0-0.2); BASOPHIL % 0.9 % (0.0-2.0); EOSINOPHIL # 0.1 TH/MM3 (0-0.4); EOSINOPHIL % 1.7 % (0.0-4.0); HEMATOCRIT 39.6 % (35.0-46.0); HEMO FLAGS DIFF FINAL; LYMPH % 22.9 % (9.0-44.0); LYMPHOCYTE # 1.3 TH/MM3 (1.0-4.8); MEAN CELL VOLUME 88.9 FL (80.0-100.0); MEAN CORPUSCULAR HEMOGLOBIN 30.1 PG (27.0-34.0); MEAN CORPUSCULAR HGB CONC 33.9 % (32.0-36.0); NEUT % 66.5 % (16.0-70.0); PLATELET COUNT 255 TH/MM3 (150-450); RED BLOOD COUNT 4.46 MIL/MM3 (4.00-5.30); RED CELL DISTRIBUTION WIDTH 13.7 % (11.6-17.2); WHITE BLOOD COUNT 5.8 TH/MM3 (4.0-11.0)
[2017-01-27 19:26] LABS: BICARBONATE 23.2 MEQ/L (21.0-32.0)
[2017-01-27 22:31] LABS: CHLAMYDIA PCR NOT DETECTED (NOT DETECT); NEISSERIA PCR NOT DETECTED (NOT DETECT)
--- NOTE | 2017-02-12 19:13 | PD ---
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 Patient denies significant fever, chills, or other symptoms. Abdominal pain is vague and 4 out of 10 at best. Patient denies nausea, vomiting, or other symptoms. Patient allergic to erythromycin, ketorolac, demented to provide, colon cancer strong, phenobarbital, prochlorperazine, and tramadol. PFSH Past Medical History Arthritis: No Autoimmune Disease: No Blood Disorders: No Bipolar Disorder: Yes Anxiety: Yes Depression: Yes Cancer: Yes (cervical cancer - removed) Cardiovascular Problems: No Chemotherapy: No Cerebrovascular Accident: No Diabetes: No Diminished Hearing: No Endocrine: No Gastrointestinal Disorders: Yes (nausea all the time) GERD: Yes Genitourinary: No Headaches: Yes Immune Disorder: No Implanted Vascular Access Dvce: No Kidney Stones: Yes Musculoskeletal: Yes (back pain) Psychiatric: Yes (Bipolar, ptsd, multiple personalties) Reproductive: Yes Immunizations Current: Yes Migraines: Yes Radiation Therapy: No Seizures: Yes Thyroid Disease: No Ulcer: Yes (PEPTIC) Tetanus Vaccination: < 5 Years Influenza Vaccination: Yes ?: Unknown LMP: IUD : 0 Para: 0 Miscarriage: 0 : 0 Ovarian Cysts: Yes (3 lap surgeries) Past Surgical History Abdominal Surgery: Yes (gallbladder removed, tonsils and adenoids removed) Cardiac Surgery: No Cholecystectomy: Yes Ear Surgery: No Endocrine Surgery: No Eye Surgery: Yes (left eye surgeries X3 (lazy eye)) Genitourinary Surgery: No Gynecologic Surgery: Yes Neurologic Surgery: No Oral Surgery: No Thoracic Surgery: No Tonsillectomy: Yes Other Surgery: Yes (cervical leep) Social History Alcohol Use: No Tobacco Use: Yes (vape) Substance Use: No Allergies-Medications (Allergen,Severity, Reaction): Coded Allergies: erythromycin base (Verified Allergy, Severe, HIVES, 01/27/17) ketorolac (Verified Allergy, Severe, HIVES, 01/27/17) phenobarbital (Verified Allergy, Severe, RASH, 01/27/17) tramadol (Verified Allergy, Severe, RASH, 01/27/17) ondansetron (Verified Adverse Reaction, Severe, Twitching, 01/27/17) metoclopramide (Verified Adverse Reaction, Intermediate, SHAKING, 01/27/17) prochlorperazine (Verified Adverse Reaction, Unknown, AGITATION, 01/27/17) Reported Meds & Prescriptions Reported Meds & Active Scripts Active Keflex (Cephalexin) 500 Mg Cap 500 Mg PO Q8H K-Vescent (Potassium Bicarbonate) 25 Meq Tab 25 Meq PO BID Flexeril (Cyclobenzaprine HCl) 10 Mg Tab 10 Mg PO TID Keppra (Levetiracetam) 500 Mg Tab 500 Mg PO Q12HR Reported Effexor (Venlafaxine HCl) 75 Mg Tab 75 Mg PO DAILY Gabapentin 800 Mg Tab 800 Mg PO TID Tizanidine (Tizanidine HCl) 4 Mg Tab 4 Mg PO HS Ambien (Zolpidem Tartrate) 5 Mg Tab 5 Mg PO HS PRN Review of Systems Except as stated in HPI: all other systems reviewed are Neg General / Constitutional: No: Fever, Chills Eyes: No: Visual changes HENT: No: Headaches Cardiovascular: No: Chest Pain or Discomfort Respiratory: No: Shortness of Breath Gastrointestinal: No: Abdominal Pain Genitourinary: Positive: Pelvic Pain, Discharge, No: Dysuria, Flank Pain, Vaginal Bleeding Musculoskeletal: No: Pain Skin: No Rash Neurologic: No: Weakness Psychiatric: No: Depression Endocrine: No: Polydipsia Hematologic/Lymphatic: No: Easy Bruising Physical Exam Narrative GENERAL: Patient appears in no acute distress. SKIN: Warm and dry. Normal color. Normal turgor. HEAD: Atraumatic. Normocephalic. EYES: Pupils equal and round. No scleral icterus. No injection or drainage. ENT: No nasal bleeding or discharge. Mucous membranes pink and moist. Pharynx is clear. Airway is patent. NECK: Trachea midline. Supple nontender. CARDIOVASCULAR: Regular rate and rhythm. RESPIRATORY: No accessory muscle use. Clear to auscultation. Breath sounds equal bilaterally. GASTROINTESTINAL: Abdomen soft, diffuse suprapubic tenderness noted., nondistended. Hepatic and splenic margins not palpable. 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 Wet prep is obtained. There is no outer rash or erythema. There is yellowish discharge noted. Mild cervical tenderness is noted. MUSCULOSKELETAL: Extremities without clubbing, cyanosis, or edema. No obvious deformities. NEUROLOGICAL: Awake and alert. No obvious cranial nerve deficits. Motor grossly within normal limits. Five out of 5 muscle strength in the arms and legs. Normal speech. PSYCHIATRIC: Appropriate mood and affect; insight and judgment normal. Data Data Orders Orders Complete Blood Count With Diff (01/27/17 17:21) Basic Metabolic Panel (Bmp) (01/27/17 17:21) Urinalysis - C+S If Indicated (01/27/17 17:21) Ed Urine Pregnancytest Poc (01/27/17 17:21) Gc And Chlamydia Pcr (01/27/17 17:21) Wet Prep Profile (01/27/17 17:56) Iv Access Insert/Monitor (01/27/17 17:58) Ecg Monitoring (01/27/17 17:58) Oximetry (01/27/17 17:58) Ondansetron Inj (Zofran Inj) (01/27/17 18:00) Sodium Chlor 0.9% 1000 Ml Inj (Ns 1000 M (01/27/17 17:58) Sodium Chloride 0.9% Flush (Ns Flush) (01/27/17 18:00) Promethazine Inj (Phenergan Inj) (01/27/17 18:15) Ceftriaxone Inj (Rocephin Inj) (01/27/17 18:30) Azithromycin (Zithromax) (01/27/17 18:30) Morphine Inj (Morphine Inj) (01/27/17 18:30) Urine Culture (01/27/17 18:50) Ed Discharge Order (01/27/17 19:41) Labs Laboratory Tests Test 01/27/17 18:10 01/27/17 18:50 Clue Cells (Wet Prep) NONE SEEN Vaginal Trichomonas (Wet Prep) NONE SEEN Vaginal Yeast (Wet Prep) NONE SEEN Chlamydia trachomatis DNA (PCR) NOT DETECTED Neisseria gonorrhoeae DNA (PCR) NOT DETECTED White Blood Count 5.8 TH/MM3 Red Blood Count 4.46 MIL/MM3 Hemoglobin 13.4 GM/DL Hematocrit 39.6 % Mean Corpuscular Volume 88.9 FL Mean Corpuscular Hemoglobin 30.1 PG Mean Corpuscular Hemoglobin Concent 33.9 % Red Cell Distribution Width 13.7 % Platelet Count 255 TH/MM3 Mean Platelet Volume 9.0 FL Neutrophils (%) (Auto) 66.5 % Lymphocytes (%) (Auto) 22.9 % Monocytes (%) (Auto) 8.0 % Eosinophils (%) (Auto) 1.7 % Basophils (%) (Auto) 0.9 % Neutrophils # (Auto) 3.8 TH/MM3 Lymphocytes # (Auto) 1.3 TH/MM3 Monocytes # (Auto) 0.5 TH/MM3 Eosinophils # (Auto) 0.1 TH/MM3 Basophils # (Auto) 0.1 TH/MM3 CBC Comment DIFF FINAL Differential Comment Urine Color YELLOW Urine Turbidity HAZY Urine pH 6.0 Urine Specific Ayr 1.031 Urine Protein TRACE mg/dL Urine Glucose (UA) NEG mg/dL Urine Ketones NEG mg/dL Urine Occult Blood TRACE Urine Nitrite NEG Urine Bilirubin NEG Urine Urobilinogen LESS THAN 2.0 MG/DL Urine Leukocyte Esterase SMALL Urine RBC 1 /hpf Urine WBC 16 /hpf Urine Squamous Epithelial Cells 13 /hpf Urine Bacteria MANY /hpf Urine Mucus MANY /lpf Microscopic Urinalysis Comment CULTURE INDICATED Blood Urea Nitrogen 10 MG/DL Creatinine 0.77 MG/DL Random Glucose 78 MG/DL Calcium Level 8.5 MG/DL Sodium Level 137 MEQ/L Potassium Level 4.0 MEQ/L Chloride Level 105 MEQ/L Carbon Dioxide Level 23.2 MEQ/L Anion Gap 9 MEQ/L Estimat Glomerular Filtration Rate 88 ML/MIN [facility] Medical Decision Making Medical Screen Exam Complete: Yes Emergency Medical Condition: Yes Differential Diagnosis Pelvic inflammatory disease. STD. Vaginitis. Narrative Course Urine GC chlamydia sent and is pending. Urinalysis is sent. Wet prep was sent. Patient is given 1000 milligrams Rocephin IM. Patient is given 1000 mg of azithromycin by mouth. Wet prep shows no obvious clue cells or other significant findings. Urine GC is still pending. Patient is turned over to Dr. Kirk for final disposition and changes shift. Diagnosis Primary Impression: PELVIC PAIN Patient Instructions: General Instructions Departure Forms: Tests/Procedures Disposition: DISCHARGE HOME Condition: Stable Ian Torres Feb 12, 2017 19:12
== END 2017-01-27 20:18 | disposition home or self-care (01) ==
LOC: NEPD 17:14
DX: R10.2 Pelvic and perineal pain (principal); N89.8 Other specified noninflammatory disorders of vagina; B96.20 Unspecified Escherichia coli [E. coli] as the cause of diseases classified elsewhere; F41.9 Anxiety disorder, unspecified; F31.9 Bipolar disorder, unspecified; K21.9 Gastro-esophageal reflux disease without esophagitis; F43.10 Post-traumatic stress disorder, unspecified; R56.9 Unspecified convulsions; F17.290 Nicotine dependence, other tobacco product, uncomplicated
CPT/HCPCS: 80048; 81001; 84703; 85025; 87077; 87086; 87186; 87210; 87491; 87591; 96361; 96365; 99285; J0696; J2270; J2550; J7030

== ENCOUNTER 2017-02-03 21:49 | Emergency (ER) | payer OTHER ==
[~2017-02-03] VITALS: Ht 167.6 cm; Wt 130.0 kg
[~2017-02-03 21:49] MED LIST changes: -BUTA1CAP PO; -IMIT100T PO; -LEXA10TA PO; -LEXA20TA PO; -METR-1 PO; -TYLETAB34 PO; +VENL75TA PO
[2017-02-03 21:50] VITALS: BP 143/99; PULSE 143; RESP 18; TEMP 99.6; O2SAT 99
--- NOTE | 2017-02-03 22:23 | PD ---
HPI Chief Complaint: Headache Time Seen by Provider: 22:07 Travel History International Travel<30 days: No Contact w/Intl Traveler<30days: No Traveled to known affect area: No History of Present Illness HPI The patient is a 32 year old female who presents to the [facility] emergency department with a history of abdominal pain from the umbillicus down and from the mid back down that began on Thursday evening. It is throbbing/ burning sensation. She has a history of neuropathy and this is also exacerbating in her legs in spite of taking her usual gabapentin. She reports that she has also developed a migraine headache. She reports that this headache is her usual type of migraine headache involving the right side of her head. She reports it is a throbbing sensation. She reports that she has tried taking Naprosyn, Tylenol, muscle relaxers, Fioricet without any relief. She has nausea. She tried taking Phenergan prior to her arrival without any improvement. She has not had vomiting. Her last BM was today. She has a decreased appetite. She was diagnosed with PID on 01/27 in the emergency department. She was treated in the ER with antibiotic however she was not discharged home on any antibiotic. The patient reports having urinary frequency and urgency. On review of systems, she denies having any known recent fevers, cough, congestion, neck pain, chest pain, shortness of breath, diarrhea, dysuria, or other neurologic symptoms. LMP: Irregular due to have an IUD in place. She is being seen by pain management for her neuropathy. PCP: Dr. De Jesus. [facility] Past Medical History Narrative Medical The patient's past medical history is significant for bipolar disorder, cervical cancer, acid reflux, migraine headaches, kidney stones, chronic back pain, posttraumatic stress disorder, history of seizures and pseudoseizures. Arthritis: No Autoimmune Disease: No Blood Disorders: No Bipolar Disorder: Yes Anxiety: Yes Depression: Yes Cancer: Yes (cervical cancer - removed) Cardiovascular Problems: No Chemotherapy: No Cerebrovascular Accident: No Diabetes: No Diminished Hearing: No Endocrine: No Gastrointestinal Disorders: Yes (nausea all the time) GERD: Yes Genitourinary: No Headaches: Yes Immune Disorder: No Implanted Vascular Access Dvce: No Kidney Stones: Yes Musculoskeletal: Yes (back pain) Psychiatric: Yes (Bipolar, ptsd, multiple personalties) Reproductive: Yes Immunizations Current: Yes Migraines: Yes Radiation Therapy: No Seizures: Yes Thyroid Disease: No Ulcer: Yes (PEPTIC) ?: Not LMP: HAS IDU : 0 Para: 0 Miscarriage: 0 : 0 Ovarian Cysts: Yes (3 lap surgeries) Past Surgical History Narrative Surgical The patient's past surgical history is significant for cholecystectomy, tonsil and adenoidectomy, left eye surgery related to strabismus. Abdominal Surgery: Yes (gallbladder removed, tonsils and adenoids removed) Cardiac Surgery: No Cholecystectomy: Yes Ear Surgery: No Endocrine Surgery: No Eye Surgery: Yes (left eye surgeries X3 (lazy eye)) Genitourinary Surgery: No Gynecologic Surgery: Yes Neurologic Surgery: No Oral Surgery: No Thoracic Surgery: No Tonsillectomy: Yes Other Surgery: Yes (cervical leep) Social History Alcohol Use: No Tobacco Use: Yes (vape) Substance Use: No Allergies-Medications (Allergen,Severity, Reaction): Coded Allergies: erythromycin base (Verified Allergy, Severe, HIVES, 01/27/17) ketorolac (Verified Allergy, Severe, HIVES, 01/27/17) phenobarbital (Verified Allergy, Severe, RASH, 01/27/17) tramadol (Verified Allergy, Severe, RASH, 01/27/17) ondansetron (Verified Adverse Reaction, Severe, Twitching, 01/27/17) metoclopramide (Verified Adverse Reaction, Intermediate, SHAKING, 01/27/17) prochlorperazine (Verified Adverse Reaction, Unknown, AGITATION, 01/27/17) Reported Meds & Prescriptions Reported Meds & Active Scripts Active Keflex (Cephalexin) 500 Mg Cap 500 Mg PO Q8H K-Vescent (Potassium Bicarbonate) 25 Meq Tab 25 Meq PO BID Flexeril (Cyclobenzaprine HCl) 10 Mg Tab 10 Mg PO TID Keppra (Levetiracetam) 500 Mg Tab 500 Mg PO Q12HR Reported Effexor (Venlafaxine HCl) 75 Mg Tab 75 Mg PO DAILY Gabapentin 800 Mg Tab 800 Mg PO TID Tizanidine (Tizanidine HCl) 4 Mg Tab 4 Mg PO HS Ambien (Zolpidem Tartrate) 5 Mg Tab 5 Mg PO HS PRN Review of Systems Except as stated in HPI: all other systems reviewed are Neg General / Constitutional: No: Fever Eyes: No: Visual changes HENT: Positive: Headaches, No: Rhinorrhea, Congestion, Neck Stiffness, Neck Pain Cardiovascular: No: Chest Pain or Discomfort Respiratory: No: Cough, Shortness of Breath Gastrointestinal: Positive: Nausea, Abdominal Pain, Loss of Appetite, No: Vomiting, Diarrhea, Changes in Bowel Habits, Indigestion Genitourinary: Positive: Urgency, Frequency, No: Dysuria Musculoskeletal: No: Pain Skin: No Rash Neurologic: No: Weakness Psychiatric: No: Depression Endocrine: No: Polydipsia Hematologic/Lymphatic: No: Easy Bruising Physical Exam Narrative General: The patient is a well-developed well-nourished female in no acute distress. Head and Neck exam: Head is normocephalic atraumatic. Eyes: EOMI, pupils are equal round and reactive to light. Nose: Midline septum with pink mucous membranes Mouth: Dentition unremarkable. Moist mucus membranes. Posterior oropharynx is not erythematous. No tonsillar hypertrophy. Uvula midline. Airway patent. Neck: No palpable lymphadenopathy. No nuchal rigidity. No thyromegaly. Negative Brudzinski, negative Kernig sign. Cardiovascular: Sinus tachycardia in the low 100s without murmurs, gallops, or rubs. No pulse deficit to the extremities on simultaneous auscultation and palpation of her radial artery. Lungs: Clear to auscultation bilaterally. No wheezes, rhonchi, or rales. Abdomen: Soft, with reported tenderness on palpation of bilateral lower quadrants of the abdomen and suprapubic area, worse on palpation of the suprapubic area. The patient does report tenderness on palpation over McBurney's point. No guarding , rebound, or rigidity. Negative Gracia's sign. Extremities: No clubbing, cyanosis, or edema. 2+ pulses in all 4 extremities. No calf tenderness on palpation. Less than 3 second capillary refill of the digits. Back: No spinous process tenderness to palpation. Bilateral CVA tenderness reported. Neurologic Exam: Cranial nerves 2-12 were intact on exam. Strength is 5/5 in all 4 extremities. No sensory deficits noted. Skin Exam: No rash noted. Intact skin that is warm and dry. Data Data Last Documented VS Vital Signs Date Time Temp Pulse Resp B/P (MAP) Pulse Ox O2 Delivery O2 Flow Rate FiO2 02/03/17 22:25 114 22 144/91 (108) 97 Room Air 02/03/17 21:50 99.6 Orders Orders Electrocardiogram (02/03/17 22:49) Complete Blood Count With Diff (02/03/17 22:49) Comprehensive Metabolic Panel (02/03/17 22:49) C-Reactive Protein (Crp) (02/03/17 22:49) Lipase (02/03/17 22:49) Iv Access Insert/Monitor (02/03/17 22:49) Ecg Monitoring (02/03/17 22:49) Oximetry (02/03/17 22:49) Ed Urine Pregnancytest Poc (02/03/17 22:49) Sodium Chlor 0.9% 1000 Ml Inj (Ns 1000 M (02/03/17 23:00) Promethazine Inj (Phenergan Inj) (02/03/17 23:00) Hydromorphone Pf Inj (Dilaudid Pf Inj) (02/03/17 23:00) Ct Abd/Pel W/O Iv Contrast (02/04/17 00:24) Lidocaine 1% Inj (50 Ml) (Xylocaine 1% I (02/04/17 00:30) Ceftriaxone Inj (Rocephin Inj) (02/04/17 00:30) Oral Rehydration (02/04/17 00:24) Potassium Chloride Eff (K-Lyte Cl Eff) (02/04/17 01:30) Ed Discharge Order (02/04/17 03:10) Labs Laboratory Tests Test 02/03/17 23:50 02/04/17 00:37 White Blood Count 7.0 TH/MM3 Red Blood Count 4.53 MIL/MM3 Hemoglobin 13.2 GM/DL Hematocrit 39.0 % Mean Corpuscular Volume 86.0 FL Mean Corpuscular Hemoglobin 29.1 PG Mean Corpuscular Hemoglobin Concent 33.8 % Red Cell Distribution Width 13.7 % Platelet Count 245 TH/MM3 Mean Platelet Volume 8.9 FL Neutrophils (%) (Auto) 51.1 % Lymphocytes (%) (Auto) 37.5 % Monocytes (%) (Auto) 6.7 % Eosinophils (%) (Auto) 3.9 % Basophils (%) (Auto) 0.8 % Neutrophils # (Auto) 3.6 TH/MM3 Lymphocytes # (Auto) 2.6 TH/MM3 Monocytes # (Auto) 0.5 TH/MM3 Eosinophils # (Auto) 0.3 TH/MM3 Basophils # (Auto) 0.1 TH/MM3 CBC Comment AUTO DIFF Differential Total Cells Counted 100 Neutrophils % (Manual) 53 % Band Neutrophils % 5 % Lymphocytes % 26 % Monocytes % 5 % Eosinophils % 2 % Neutrophils # (Manual) 4.1 TH/MM3 Metamyelocytes 1 % Differential Comment FINAL DIFF MANUAL Atypical Lymphocytes 8 % Smudge Cells PRESENT Platelet Estimate NORMAL Platelet Morphology Comment NORMAL Red Cell Morphology Comment NORMAL Blood Urea Nitrogen 7 MG/DL Creatinine 0.76 MG/DL Random Glucose 93 MG/DL Total Protein 7.6 GM/DL Albumin 3.6 GM/DL Calcium Level 8.8 MG/DL Alkaline Phosphatase 108 U/L Aspartate Amino Transf (AST/SGOT) 54 U/L Alanine Aminotransferase (ALT/SGPT) 67 U/L Total Bilirubin 0.3 MG/DL Sodium Level 141 MEQ/L Potassium Level 3.2 MEQ/L Chloride Level 108 MEQ/L Carbon Dioxide Level 25.3 MEQ/L Anion Gap 8 MEQ/L Estimat Glomerular Filtration Rate 89 ML/MIN C-Reactive Protein 1.98 MG/DL Lipase 130 U/L [facility] Medical Decision Making Medical Screen Exam Complete: Yes Emergency Medical Condition: Yes Medical Record Reviewed: Yes Differential Diagnosis Appendicitis, versus cystitis, versus pyelonephritis, versus other pelvic infection Narrative Course During the course of the patients emergency department visit, the patients history, examination, and differential diagnosis were reviewed with the patient. The patient was placed on a cardiac/vascular sonographer with oximetry and frequent blood pressure monitoring. The patient had IV access obtained and blood work sent for analysis. On reviewed the patient's electronic medical record reveals that on January 27 she did get evaluated for pelvic pain, what prep and GC and chlamydia were negative. The patient had a urinalysis done that was abnormal and cultured which came out positive for urinary tract infection with Escherichia coli pansensitive. IV access was noted to be difficult to obtain in this patient. An arterial stick was made for the patient's blood work. The patient was initially provided Rocephin 1 g IM. The patient was given Phenergan IM for nausea, oral rehydration. The patients laboratory studies were reviewed and remarkable for a white count of 7, hemoglobin 13.2, platelets 245 with 8 atypical lymphocytes, CMP is remarkable for potassium of 3.2 which was supplemented orally, chloride 108, AST 54, ALT 67, C-reactive protein 1.98, lipase 130 Radiology studies were reviewed and remarkable for a CT scan of the abdomen and pelvis that shows a normal-appearing appendix, probable left ovarian cyst on the left, no other acute abnormality. The patient will be discharged home with a potassium supplement for the next 5 days, and Keflex which her urinary tract infection was noted to be sensitive to. The patient is instructed to follow-up with a line decorator regarding the ovarian cyst. She is given a copy of her CT scan at discharge. The patient is resting comfortably and feels better, is alert and in no distress. The patients results and examination findings were discussed with the patient. The repeat examination is unremarkable and benign. The history, exam, diagnostic testing, and current condition do not suggest any significant pathology to warrant further testing, continued ED treatment, admission, or surgical evaluation at this point. The vital signs have been stable. The patient does not have uncontrollable pain, intractable vomiting, or other significant symptoms. The patient's condition is stable and appropriate for discharge. The patient will pursue further outpatient evaluation with a primary care physician or other designated or consulting physician as indicated in the discharge instructions. The patient expressed understanding and was agreeable with this plan. Diagnosis Primary Impression: Urinary tract infection Qualified Codes: N39.0 - Urinary tract infection, site not specified Additional Impressions: Hypokalemia Abdominal pain Qualified Codes: R10.30 - Lower abdominal pain, unspecified Ovarian cyst Qualified Codes: N83.202 - Unspecified ovarian cyst, left side Referrals: Habitat Management Coordinator 1 week [facility] 1 week Primary Care Physician 2 days Patient Instructions: Abdominal Pain (ED), General Instructions, Hypokalemia ( ED), Ovarian Cyst (ED), Urinary Tract Infection in Women (ED) Med/Other Pt SpecificInfo: Prescription(s) given Scripts Cephalexin (Keflex) 500 Mg Cap 500 MG PO Q8H for Infection, #30 CAP 0 Refills Prov: Chacha Wild MD 02/04/17 Potassium Bicarbonate Effervescent (K-Vescent) 25 Meq Tab 25 MEQ PO BID for Electrolyte Replacement, #10 TAB 0 Refills Prov: Chacha Wild MD 02/04/17 Disposition: 01 DISCHARGE HOME Condition: Stable Chacha Wild MD Feb 03, 2017 22:23
[2017-02-03 22:25] VITALS: BP 144/91; PULSE 114; RESP 22; O2SAT 97
[2017-02-03] MEDS ORDERED: SODIUM CHLOR 0.9% 1000 ML INJ 1,000 ML IV ONE (23:00)
[2017-02-03] MEDS ORDERED: PROMETHAZINE INJ 25 MG/ML VIAL IM ONE (23:00)
[2017-02-03] MEDS ORDERED: HYDROmorphone HCL PF 2 MG/ML VIAL IV PUSH ONE (23:00)
[2017-02-04] MEDS ORDERED: LIDOCAINE HCL 1% 50 ML VIAL IM ONE (00:30)
[2017-02-04 00:33] LABS: AUTOMATED NEUTROPHIL # 3.6 TH/MM3 (1.8-7.7); BASOPHIL # 0.1 TH/MM3 (0-0.2); BASOPHIL % 0.8 % (0.0-2.0); EOSINOPHIL # 0.3 TH/MM3 (0-0.4); EOSINOPHIL % 3.9 % (0.0-4.0); LYMPH % 37.5 % (9.0-44.0); LYMPHOCYTE # 2.6 TH/MM3 (1.0-4.8); MEAN CORPUSCULAR HEMOGLOBIN 29.1 PG (27.0-34.0); MEAN CORPUSCULAR HGB CONC 33.8 % (32.0-36.0); MONO % 6.7 % (0.0-8.0); NEUT % 51.1 % (16.0-70.0); PLATELET COUNT 245 TH/MM3 (150-450); RED BLOOD COUNT 4.53 MIL/MM3 (4.00-5.30); RED CELL DISTRIBUTION WIDTH 13.7 % (11.6-17.2)
[2017-02-04 00:34] LABS: HEMO FLAGS AUTO DIFF
[2017-02-04 01:11] LABS: ANION GAP 8 MEQ/L (5-15); AST (GOT) 54 U/L (15-37); BICARBONATE 25.3 MEQ/L (21.0-32.0); BLOOD UREA NITROGEN 7 MG/DL (7-18); CHLORIDE 108 MEQ/L (98-107); GLOMERULAR FILTRATION RATE 89 ML/MIN (>89); POTASSIUM 3.2 MEQ/L (3.5-5.1); SODIUM (NA) 141 MEQ/L (136-145)
[2017-02-04 01:12] LABS: ATYPICAL LYMPHOCYTES 8 % (0-0); BANDS 5 % (0-6); EOSINOPHILS 2 % (0-4); METAMYELOCYTES 1 % (0-1); NEUTROPHIL # MANUAL DIFF 4.1 TH/MM3 (1.8-7.7); POLYS (SEG NEUTROPHILS) 53 % (16-70); SCAN/DIFF FINAL DIFF MANUAL; WBC DIFF SAMPLE 100
[2017-02-04 01:13] LABS: PLATELET ESTIMATE SMEAR NORMAL (NORMAL); PLATELET MORPHOLOGY NORMAL (NORMAL); SMUDGE CELLS PRESENT PRESENT
[2017-02-04 01:13] LABS: ALKALINE PHOSPHATASE 108 U/L (45-117); ALT (GPT) 67 U/L (10-53); TOTAL BILIRUBIN ADULT 0.3 MG/DL (0.2-1.0)
[2017-02-04] MEDS ORDERED: KLORCONEF PO (01:19)
[2017-02-04] MEDS ORDERED: CEPH-460 PO (01:19)
[2017-02-04] MEDS ORDERED: POTASSIUM CHLORIDE 25 MEQ EFFERVESCENT TAB PO ONE (01:30)
--- NOTE | 2017-02-04 03:05 | RADRPT ---
EXAM DATE/TIME: 02/04/2017 02:13 [place] COMPARISON: No previous studies available for comparison. INDICATIONS : Abdomen pain. ORAL CONTRAST: No oral contrast ingested. RADIATION DOSE: 33.34 CTDIvol (mGy) ; Patient body habitus MEDICAL HISTORY : Seizures. SURGICAL HISTORY : Cholecystectomy. ENCOUNTER: Initial ACUITY: 1 day PAIN SCALE: 5/10 LOCATION: Bilateral abdomen TECHNIQUE: Volumetric scanning of the abdomen and pelvis was performed. Using automated exposure control and ad justment of the mA and/or kV according to patient size, radiation dose was kept as low as reasonably achievable to obtain optimal diagnostic quality images. DICOM format image data is available electro nically for review and comparison. FINDINGS: LOWER LUNGS: The visualized lower lungs are clear. LIVER: Homogeneous density without lesion for noncontrast technique. There is no dilation of the biliary tr ee. Cholecystectomy. SPLEEN: Normal size without lesion. PANCREAS: Within normal limits. KIDNEYS: Normal in size and shape. There is no mass, stone, or hydronephrosis. ADRENAL GLANDS: Within normal limits. VASCULAR: There is no aortic aneurysm. BOWEL/MESENTERY: No dilated loops of small or large bowel. The appendix is identified in the right lower quadrant and has a normal appearance. ABDOMINAL WALL: Within normal limits. RETROPERITONEUM: There is no lymphadenopathy. BLADDER: No wall thickening or mass. REPRODUCTIVE: T-shaped IUD in the uterus. 4 cm low density round lesion in the left adnexa probably representing o varian cyst. No evidence of free fluid. INGUINAL: There is no lymphadenopathy or hernia. MUSCULOSKELETAL: Within normal limits for patient age. CONCLUSION: 1. Probable left ovarian cyst. 2. No renal stones or hydronephrosis. 3. Otherwise negative noncontrast CT abdomen/pelvis. Ayo Kelly MD on February 04, 2017 at 2:59 Board Certified Radiologist. This report was verified electronically.
--- NOTE | 2017-02-04 15:26 | EKG ---
Date Performed: 02/03/2017 Time Performed: 22:57:08 PTAGE: 32 years EKG: SINUS TACHYCARDIA ABNORMAL RHYTHM ECG NO PREVIOUS TRACING DOCTOR: Kody Newsome Interpretating Date/Time 02/04/2017 15:24:56
== END 2017-02-04 03:30 | disposition home or self-care (01) ==
LOC: NEPC 21:49
DX: N39.0 Urinary tract infection, site not specified (principal); E87.6 Hypokalemia; R10.30 Lower abdominal pain, unspecified; N83.202 Unspecified ovarian cyst, left side; R51 Headache; R00.0 Tachycardia, unspecified; R94.31 Abnormal electrocardiogram [ECG] [EKG]; F31.9 Bipolar disorder, unspecified; F43.10 Post-traumatic stress disorder, unspecified
CPT/HCPCS: 74176; 80053; 83690; 84703; 85007; 85027; 86140; 93005; 96372; 96374; 99285; J0696; J1170; J2550

== ENCOUNTER 2017-03-01 13:43 | Emergency (ER) | payer OTHER ==
[~2017-03-01] VITALS: Ht 167.6 cm; Wt 128.0 kg
[~2017-03-01 13:43] MED LIST changes: +CEPH-460 PO; +KLORCONEF PO
[2017-03-01 13:59] VITALS: BP 161/93; PULSE 77; RESP 20; TEMP 98.3; O2SAT 98
[2017-03-01] MEDS ORDERED: VIST25CA PO (14:09)
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
[2017-03-01 14:27] VITALS: BP 141/82; PULSE 67; RESP 18; O2SAT 97
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
[2017-03-01] MEDS ORDERED: ACETAMINOPHEN/HYDROcodone 325 MG/5 MG TAB PO ONE (16:00)
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
[2017-03-01] MEDS ORDERED: NORC5TAB PO (17:29)
[2017-03-01] MEDS ORDERED: ROBA750T PO (17:29)
[2017-03-01 17:46] VITALS: BP 132/80; PULSE 65; RESP 18; O2SAT 97
== END 2017-03-01 18:03 | disposition home or self-care (01) ==
LOC: NEPE 13:43
DX: S00.83XA Contusion of other part of head, initial encounter (principal); S16.1XXA Strain of muscle, fascia and tendon at neck level, initial encounter; S40.012A Contusion of left shoulder, initial encounter; F31.9 Bipolar disorder, unspecified; F43.10 Post-traumatic stress disorder, unspecified; K21.9 Gastro-esophageal reflux disease without esophagitis; F17.290 Nicotine dependence, other tobacco product, uncomplicated; Z87.442 Personal history of urinary calculi; V47.6XXA Car passenger injured in collision with fixed or stationary object in traffic accident, initial encounter
CPT/HCPCS: 70450; 70486; 72125; 73030

== ENCOUNTER 2017-03-05 18:08 | Emergency (ER) | payer OTHER ==
[~2017-03-05] VITALS: Ht 167.6 cm; Wt 131.5 kg
[~2017-03-05 18:08] MED LIST changes: -CEPH-460 PO; -CYCL10TA PO; -KLORCONEF PO; +NORC5TAB PO; +ROBA750T PO; -VENL75TA PO; +VIST25CA PO
[2017-03-05 18:16] VITALS: BP 157/79; PULSE 89; RESP 18; TEMP 99.8; O2SAT 97
[2017-03-05 19:22] LABS: AUTOMATED NEUTROPHIL # 3.6 TH/MM3 (1.8-7.7); BASOPHIL # 0.1 TH/MM3 (0-0.2); BASOPHIL % 1.1 % (0.0-2.0); EOSINOPHIL # 0.1 TH/MM3 (0-0.4); EOSINOPHIL % 1.4 % (0.0-4.0); HEMATOCRIT 41.4 % (35.0-46.0); HEMOGLOBIN 14.1 GM/DL (11.6-15.3); LYMPH % 55.2 % (9.0-44.0); LYMPHOCYTE # 5.3 TH/MM3 (1.0-4.8); MEAN CELL VOLUME 85.5 FL (80.0-100.0); MEAN CORPUSCULAR HEMOGLOBIN 29.1 PG (27.0-34.0); MEAN CORPUSCULAR HGB CONC 34.1 % (32.0-36.0); MONO % 5.6 % (0.0-8.0); MONOCYTE # 0.5 TH/MM3 (0-0.9); NEUT % 36.7 % (16.0-70.0); PLATELET COUNT 316 TH/MM3 (150-450); RED BLOOD COUNT 4.84 MIL/MM3 (4.00-5.30); RED CELL DISTRIBUTION WIDTH 13.9 % (11.6-17.2); WHITE BLOOD COUNT 9.7 TH/MM3 (4.0-11.0)
[2017-03-05 19:23] LABS: BILIRUBIN, URINE NEG (NEG); BLOOD, URINE NEG (NEG); GLUCOSE,URINE NEG (NEG); KETONE, URINE TRACE mg/dL (NEG); MUCUS URINE FEW /lpf (OCC); NITRITE,URINE NEG (NEG); SQUAMOUS EPITHELIAL CELL URINE <1 /hpf (0-5); URINE COLOR YELLOW (YELLW/STRAW); URINE LEUKOCYTE ESTERASE NEG (NEG)
[2017-03-05] MEDS ORDERED: LORazepam 2 MG/ML VIAL ONE (19:24)
[2017-03-05 19:31] VITALS: BP 131/71; PULSE 77; RESP 18; O2SAT 100
[2017-03-05 19:35] LABS: ALBUMIN 4.2 GM/DL (3.4-5.0); AST (GOT) 42 U/L (15-37); BICARBONATE 21.7 MEQ/L (21.0-32.0); BLOOD UREA NITROGEN 10 MG/DL (7-18); CALCIUM 9.3 MG/DL (8.5-10.1); CHLORIDE 105 MEQ/L (98-107); CREATININE 0.79 MG/DL (0.50-1.00); GLOMERULAR FILTRATION RATE 85 ML/MIN (>89); GLUCOSE,RANDOM 95 MG/DL (74-106); SODIUM (NA) 136 MEQ/L (136-145)
[2017-03-05 19:38] LABS: ALKALINE PHOSPHATASE 86 U/L (45-117); ALT (GPT) 51 U/L (10-53); TOTAL BILIRUBIN ADULT 0.8 MG/DL (0.2-1.0); TOTAL PROTEIN 8.6 GM/DL (6.4-8.2)
--- NOTE | 2017-03-05 19:49 | PD ---
HPI Chief Complaint: Seizure Time Seen by Provider: 19:20 Travel History International Travel<30 days: No Contact w/Intl Traveler<30days: No Traveled to known affect area: No History of Present Illness HPI Patient is a 32-year-old female who was at triage when she suddenly went limp and started to convulse currently looked like she was having tonic-clonic activity unresponsive and was rates back to the ER examining room. Patient is not biting her teeth she is clenching her and opening and closing her hands and to me it appears this is not an actual tonic-clonic seizure we are establishing IV getting her on the monitor blood pressure cuff O2 sat when another nurse experience with the patient comes in and says this patient has a history of pseudoseizures multiple visits for the same no documented seizure past history. Patient and suddenly stops the activity of tonic-clonic lays in the bed and opens her eyes as if she stops the pseudoseizure she was presenting with. No Ativan is given her blood pressure now was normal 131/77 oxygen sat is 100% there is no indication that she was tachycardic not had nor hypertensive and she is pending labs and will evaluate for CPK elevation which would be elevated if she had she had seizure muscle breakdown patient is awake alert lying in the bed PFSH Past Medical History Arthritis: No Autoimmune Disease: No Blood Disorders: No Bipolar Disorder: Yes Anxiety: Yes Depression: Yes Cancer: Yes (cervical cancer - removed) Cardiovascular Problems: No Chemotherapy: No Cerebrovascular Accident: No Diabetes: No Diminished Hearing: No Endocrine: No Gastrointestinal Disorders: Yes (nausea all the time) GERD: Yes Genitourinary: No Headaches: Yes Immune Disorder: No Implanted Vascular Access Dvce: No Kidney Stones: Yes Musculoskeletal: Yes (back pain) Psychiatric: Yes (Bipolar, ptsd, multiple personalties) Reproductive: Yes Immunizations Current: Yes Migraines: Yes Radiation Therapy: No Seizures: Yes Thyroid Disease: No Ulcer: Yes (PEPTIC) ?: Not LMP: irregular, has IUD : 0 Para: 0 Miscarriage: 0 : 0 Ovarian Cysts: Yes (3 lap surgeries) Past Surgical History Abdominal Surgery: Yes (gallbladder removed, tonsils and adenoids removed) Cardiac Surgery: No Cholecystectomy: Yes Ear Surgery: No Endocrine Surgery: No Eye Surgery: Yes (left eye surgeries X3 (lazy eye)) Genitourinary Surgery: No Gynecologic Surgery: Yes Neurologic Surgery: No Oral Surgery: No Thoracic Surgery: No Tonsillectomy: Yes Other Surgery: Yes (cervical leep) Social History Alcohol Use: No Tobacco Use: Yes (vape) Substance Use: No Allergies-Medications (Allergen,Severity, Reaction): Coded Allergies: erythromycin base (Verified Allergy, Severe, HIVES, 01/27/17) ketorolac (Verified Allergy, Severe, HIVES, 01/27/17) phenobarbital (Verified Allergy, Severe, RASH, 01/27/17) tramadol (Verified Allergy, Severe, RASH, 01/27/17) ondansetron (Verified Adverse Reaction, Severe, Twitching, 01/27/17) metoclopramide (Verified Adverse Reaction, Intermediate, SHAKING, 01/27/17) prochlorperazine (Verified Adverse Reaction, Unknown, AGITATION, 01/27/17) Reported Meds & Prescriptions Reported Meds & Active Scripts Active Fisher (Hydrocodone-Acetaminophen) 5 Mg-325 Mg Tab 1 Tab PO Q6H PRN Robaxin (Methocarbamol) 750 Mg Tab 750 Mg PO QID Keppra (Levetiracetam) 500 Mg Tab 500 Mg PO Q12HR Reported Vistaril (Hydroxyzine Pamoate) 25 Mg Cap 25 Mg PO QID Gabapentin 800 Mg Tab 800 Mg PO TID Tizanidine (Tizanidine HCl) 4 Mg Tab 4 Mg PO HS Ambien (Zolpidem Tartrate) 5 Mg Tab 5 Mg PO HS PRN Review of Systems ROS Limitations: Unresponsive (patient presenting with seizure-like activity however is not in concordant with an actual appearance of a tonic-clonic activity) Physical Exam Narrative GENERAL: initial presentation shaking news analyst hands over and over no teeth clenching and she is arching her back shaking ( until another nurse familiar with her reports in exam room Hx of pseudoseizures) she suddenly stops the shaking and opens her eyes SKIN: Warm and dry. HEAD: Atraumatic. Normocephalic. EYES: Pupils equal and round. No scleral icterus. No injection or drainage. ENT: No nasal bleeding or discharge. Mucous membranes pink and moist. NECK: Trachea midline. No JVD. CARDIOVASCULAR: Regular rate and rhythm. RESPIRATORY: No accessory muscle use. Clear to auscultation. Breath sounds equal bilaterally. GASTROINTESTINAL: Abdomen soft, non-tender, nondistended. Hepatic and splenic margins not palpable. MUSCULOSKELETAL: Extremities without clubbing, cyanosis, or edema. No obvious deformities. NEUROLOGICAL: after the presentinmg shaking "pseudoseizure like activity) she is then awake and alert No obvious cranial nerve deficits. Motor grossly within normal limits. Five out of 5 muscle strength in the arms and legs. Normal speech. PSYCHIATRIC: Appropriate mood and affect; insight and judgment normal. Data Data Last Documented VS Orders Orders Complete Blood Count With Diff (03/05/17 18:29) Electrocardiogram (03/05/17 ) Comprehensive Metabolic Panel (03/05/17 18:29) Urinalysis - C+S If Indicated (03/05/17 18:29) Ed Urine Pregnancytest Poc (03/05/17 18:29) Creatine Kinase (Cpk) (03/05/17 19:21) Lorazepam Inj (Ativan Inj) (03/05/17 19:24) Ed Discharge Order (03/05/17 21:25) Labs Laboratory Tests Test 03/05/17 18:46 03/05/17 19:00 White Blood Count 9.7 TH/MM3 Red Blood Count 4.84 MIL/MM3 Hemoglobin 14.1 GM/DL Hematocrit 41.4 % Mean Corpuscular Volume 85.5 FL Mean Corpuscular Hemoglobin 29.1 PG Mean Corpuscular Hemoglobin Concent 34.1 % Red Cell Distribution Width 13.9 % Platelet Count 316 TH/MM3 Mean Platelet Volume 9.0 FL Neutrophils (%) (Auto) 36.7 % Lymphocytes (%) (Auto) 55.2 % Monocytes (%) (Auto) 5.6 % Eosinophils (%) (Auto) 1.4 % Basophils (%) (Auto) 1.1 % Neutrophils # (Auto) 3.6 TH/MM3 Lymphocytes # (Auto) 5.3 TH/MM3 Monocytes # (Auto) 0.5 TH/MM3 Eosinophils # (Auto) 0.1 TH/MM3 Basophils # (Auto) 0.1 TH/MM3 CBC Comment AUTO DIFF Differential Total Cells Counted 100 Neutrophils % (Manual) 52 % Lymphocytes % 44 % Monocytes % 2 % Eosinophils % 2 % Neutrophils # (Manual) 5.0 TH/MM3 Differential Comment FINAL DIFF MANUAL Platelet Estimate NORMAL Platelet Morphology Comment NORMAL Blood Urea Nitrogen 10 MG/DL Creatinine 0.79 MG/DL Random Glucose 95 MG/DL Total Protein 8.6 GM/DL Albumin 4.2 GM/DL Calcium Level 9.3 MG/DL Alkaline Phosphatase 86 U/L Aspartate Amino Transf (AST/SGOT) 42 U/L Alanine Aminotransferase (ALT/SGPT) 51 U/L Total Bilirubin 0.8 MG/DL Sodium Level 136 MEQ/L Potassium Level 3.9 MEQ/L Chloride Level 105 MEQ/L Carbon Dioxide Level 21.7 MEQ/L Anion Gap 9 MEQ/L Estimat Glomerular Filtration Rate 85 ML/MIN Total Creatine Kinase 162 U/L Urine Color YELLOW Urine Turbidity CLEAR Urine pH 7.0 Urine Specific [place] 1.022 Urine Protein TRACE mg/dL Urine Glucose (UA) NEG mg/dL Urine Ketones TRACE mg/dL Urine Occult Blood NEG Urine Nitrite NEG Urine Bilirubin NEG Urine Urobilinogen 2.0 MG/DL Urine Leukocyte Esterase NEG Urine RBC 1 /hpf Urine WBC 1 /hpf Urine Squamous Epithelial Cells <1 /hpf Urine Mucus FEW /lpf Microscopic Urinalysis Comment CULT NOT INDICATED MDM Medical Decision Making Medical Screen Exam Complete: Yes Emergency Medical Condition: Yes Medical Record Reviewed: Yes Interpretation(s) EKG is normal sinus rhythm at a rate of 68, no ectopy seen. No ST segment changes Differential Diagnosis Tonic-clonic seizure versus grand mal versus pseudoseizure versus malingering versus drug-seeking behavior other Narrative Course Patient is observed in the ER when one of the nurses who knew her history came to the room and said she has a history of pseudoseizures patient stopped her tonic-clonic activity relaxed and sleeping or attending to sleep then she opened her eyes and all of her labs pending no Ativan is given at one point she says to the tech who does EKG. " I hate having pseudoseizures." People think Think I'm faking" Diagnosis Primary Impression: Pseudoseizure Patient Instructions: Conversion Disorder (ED), General Instructions Johan Daley MD Mar 05, 2017 19:49
[2017-03-05 20:00] VITALS: BP 131/68; PULSE 68; RESP 18; O2SAT 100
[2017-03-05 20:07] LABS: LYMPHOCYTES 44 % (9-44); MONOCYTES 2 % (0-8); POLYS (SEG NEUTROPHILS) 52 % (16-70)
[2017-03-05 20:30] VITALS: BP 120/58; PULSE 72; RESP 20; O2SAT 100
[2017-03-05 21:00] VITALS: BP 115/68; PULSE 66; RESP 17; O2SAT 100
[2017-03-05 21:30] VITALS: BP 135/79; PULSE 68; RESP 16; O2SAT 100
--- NOTE | 2017-03-06 16:31 | EKG ---
Date Performed: 03/05/2017 Time Performed: 19:53:55 PTAGE: 32 years EKG: Sinus rhythm LOW QRS VOLTAGE IN PRECORDIAL LEADS BORDERLINE ECG PREVIOUS TRACING : 02/03/2017 22.57 Since previous tracing, no significant change noted DOCTOR: Skyler Juarez Interpretating Date/Time 03/06/2017 16:31:05
== END 2017-03-05 21:53 | disposition home or self-care (01) ==
LOC: NEPC 18:08
DX: F44.5 Conversion disorder with seizures or convulsions (principal); F31.9 Bipolar disorder, unspecified; F43.10 Post-traumatic stress disorder, unspecified; K21.9 Gastro-esophageal reflux disease without esophagitis; F44.81 Dissociative identity disorder; Z85.41 Personal history of malignant neoplasm of cervix uteri; Z72.0 Tobacco use
CPT/HCPCS: 80053; 81001; 82550; 84703; 85007; 85027; 93005; 99284; J2060

== ENCOUNTER 2017-04-08 20:08 | Emergency (ER) | payer OTHER ==
[~2017-04-08] VITALS: Ht 167.6 cm; Wt 130.0 kg
[2017-04-08 20:16] VITALS: BP 145/89; PULSE 81; RESP 16; TEMP 97.8; O2SAT 100
--- NOTE | 2017-04-08 20:48 | PD ---
HPI Chief Complaint: Seizure Time Seen by Provider: 20:12 Travel History International Travel<30 days: No Contact w/Intl Traveler<30days: No Traveled to known affect area: No History of Present Illness HPI Patient is a 32-year-old female presents emergency department for multiple complaints. She was here for psychiatric support meeting and while she was there she had what she describes as a psychogenic seizure. She does have a history of pseudoseizures on our chart here, she has additional complaints and states that she wanted to come down and talk with psychiatry after her meeting anyways, she does not want to talk about any details but denies any suicidal or homicidal ideation to me. Her third complaint is she has been having some vaginal discharge and thinks she might have an STD again. She states that her boyfriend gave her STD in the past and she thinks it has come back. She denies any abdominal pain headaches chest pain shortness of breath diarrhea or constipation. States symptoms have been going on for the past week, gradually worsening, context and associated signs and symptoms as above. PFSH Past Medical History Arthritis: No Autoimmune Disease: No Blood Disorders: No Bipolar Disorder: Yes Anxiety: Yes Depression: Yes Cancer: Yes (cervical cancer - removed) Cardiovascular Problems: No Chemotherapy: No Cerebrovascular Accident: No Diabetes: No Diminished Hearing: No Endocrine: No Gastrointestinal Disorders: Yes (nausea all the time) GERD: Yes Genitourinary: No Headaches: Yes Immune Disorder: No Implanted Vascular Access Dvce: No Kidney Stones: Yes Musculoskeletal: Yes (back pain) Psychiatric: Yes (Bipolar, ptsd, multiple personalties) Reproductive: Yes Immunizations Current: Yes Migraines: Yes Radiation Therapy: No Seizures: Yes Thyroid Disease: No Ulcer: Yes (PEPTIC) Tetanus Vaccination: < 5 Years Influenza Vaccination: Yes ?: Not : 0 Para: 0 Miscarriage: 0 : 0 Ovarian Cysts: Yes (3 lap surgeries) Past Surgical History Abdominal Surgery: Yes (gallbladder removed, tonsils and adenoids removed) Cardiac Surgery: No Cholecystectomy: Yes Ear Surgery: No Endocrine Surgery: No Eye Surgery: Yes (left eye surgeries X3 (lazy eye)) Genitourinary Surgery: No Gynecologic Surgery: Yes Neurologic Surgery: No Oral Surgery: No Thoracic Surgery: No Tonsillectomy: Yes Other Surgery: Yes (cervical leep) Social History Alcohol Use: No Tobacco Use: Yes (vape) Substance Use: Yes (MARIJUANA) Allergies-Medications (Allergen,Severity, Reaction): Coded Allergies: erythromycin base (Verified Allergy, Severe, HIVES, 01/27/17) ketorolac (Verified Allergy, Severe, HIVES, 01/27/17) phenobarbital (Verified Allergy, Severe, RASH, 01/27/17) tramadol (Verified Allergy, Severe, RASH, 01/27/17) ondansetron (Verified Adverse Reaction, Severe, Twitching, 01/27/17) metoclopramide (Verified Adverse Reaction, Intermediate, SHAKING, 01/27/17) prochlorperazine (Verified Adverse Reaction, Unknown, AGITATION, 01/27/17) Reported Meds & Prescriptions Reported Meds & Active Scripts Active [place] (Hydrocodone-Acetaminophen) 5 Mg-325 Mg Tab 1 Tab PO Q6H PRN Robaxin (Methocarbamol) 750 Mg Tab 750 Mg PO QID Keppra (Levetiracetam) 500 Mg Tab 500 Mg PO Q12HR Reported Vistaril (Hydroxyzine Pamoate) 25 Mg Cap 25 Mg PO QID Gabapentin 800 Mg Tab 800 Mg PO TID Tizanidine (Tizanidine HCl) 4 Mg Tab 4 Mg PO HS Ambien (Zolpidem Tartrate) 5 Mg Tab 5 Mg PO HS PRN Review of Systems Except as stated in HPI: all other systems reviewed are Neg Physical Exam Narrative GENERAL: Well-developed well-nourished, no obvious distress, morbidly obese SKIN: Focused skin assessment warm/dry. HEAD: Atraumatic. Normocephalic. EYES: Pupils equal and round. No scleral icterus. No injection or drainage. ENT: No nasal bleeding or discharge. Mucous membranes pink and moist. NECK: Trachea midline. No JVD. CARDIOVASCULAR: Regular rate and rhythm. No murmur appreciated. RESPIRATORY: No accessory muscle use. Clear to auscultation. Breath sounds equal bilaterally. GASTROINTESTINAL: Abdomen soft, non-tender, nondistended. Hepatic and splenic margins not palpable. GENITOURINARY: Patient exam performed with Mónica russell RN present at all times. There is scant white discharge, no cervical motion tenderness no cervical lesion , no bleeding,no bimanual tenderness. MUSCULOSKELETAL: No obvious deformities. No clubbing. No cyanosis. No edema. NEUROLOGICAL: Awake and alert. No obvious cranial nerve deficits. Motor grossly within normal limits. Normal speech. PSYCHIATRIC: Depressed affect, depressed mood, no suicidal ideation no homicidal ideation or audiovisual hallucinations per Data Data Last Documented VS Vital Signs Date Time Temp Pulse Resp B/P (MAP) Pulse Ox O2 Delivery O2 Flow Rate FiO2 04/08/17 20:16 97.8 81 16 145/89 (107) 100 Orders Orders Complete Blood Count With Diff (04/08/17 20:15) Comprehensive Metabolic Panel (04/08/17 20:15) Thyroid Stimulating Hormone (04/08/17 20:15) Psych Screen (04/08/17 20:15) Drug Screen, Random Urine (04/08/17 20:15) Alcohol (Ethanol) (04/08/17 20:15) Wet Prep Profile (04/08/17 20:39) Gc And Chlamydia Pcr (04/08/17 20:39) Azithromycin (Zithromax) (04/08/17 21:30) Metronidazole (Flagyl) (04/08/17 21:30) Ceftriaxone Inj (Rocephin Inj) (04/08/17 21:30) Lidocaine 1% Inj (50 Ml) (Xylocaine 1% I (04/08/17 21:30) Labs Laboratory Tests Test 04/08/17 20:20 04/08/17 20:25 Urine Opiates Screen POS Urine Barbiturates Screen POS Urine Amphetamines Screen NEG Urine Benzodiazepines Screen NEG Urine Cocaine Screen NEG Urine Cannabinoids Screen NEG White Blood Count 7.5 TH/MM3 Red Blood Count 4.60 MIL/MM3 Hemoglobin 13.4 GM/DL Hematocrit 38.9 % Mean Corpuscular Volume 84.5 FL Mean Corpuscular Hemoglobin 29.0 PG Mean Corpuscular Hemoglobin Concent 34.4 % Red Cell Distribution Width 13.7 % Platelet Count 292 TH/MM3 Mean Platelet Volume 8.9 FL Neutrophils (%) (Auto) 49.5 % Lymphocytes (%) (Auto) 44.3 % Monocytes (%) (Auto) 4.6 % Eosinophils (%) (Auto) 1.1 % Basophils (%) (Auto) 0.5 % Neutrophils # (Auto) 3.7 TH/MM3 Lymphocytes # (Auto) 3.3 TH/MM3 Monocytes # (Auto) 0.3 TH/MM3 Eosinophils # (Auto) 0.1 TH/MM3 Basophils # (Auto) 0.0 TH/MM3 CBC Comment DIFF FINAL Differential Comment Blood Urea Nitrogen 11 MG/DL Creatinine 0.70 MG/DL Random Glucose 95 MG/DL Total Protein 8.5 GM/DL Albumin 4.0 GM/DL Calcium Level 9.0 MG/DL Alkaline Phosphatase 80 U/L Aspartate Amino Transf (AST/SGOT) 27 U/L Alanine Aminotransferase (ALT/SGPT) 26 U/L Total Bilirubin 0.4 MG/DL Sodium Level 140 MEQ/L Potassium Level 3.4 MEQ/L Chloride Level 107 MEQ/L Carbon Dioxide Level 24.7 MEQ/L Anion Gap 8 MEQ/L Estimat Glomerular Filtration Rate 98 ML/MIN Thyroid Stimulating Hormone 3rd Gen 1.190 uIU/ML Ethyl Alcohol Level LESS THAN 3 MG/DL MDM Medical Decision Making Medical Screen Exam Complete: Yes Emergency Medical Condition: Yes Differential Diagnosis Psychogenic seizure, PID unlikely, STD, depression, Narrative Course Patient room to the emergency department, I do not see any obvious evidence of STD however the patient thinks she has been exposed and will be treated empirically her abdomen is benign and she has not displayed any seizure activity for me. She is on Keppra. No indication for further emergent workup at this time, she would like to see psychiatry on a voluntary basis. She denies any suicidal or homicidal ideation is certainly not gravely disabled and I do not think meets Mathews act criteria at this time. She is medically cleared for psychiatric evaluation. Diagnosis Primary Impression: Pseudoseizure Additional Impression: STD (female) Condition: Stable Bg Garza MD Apr 08, 2017 20:48
[2017-04-08 20:53] LABS: AUTOMATED NEUTROPHIL # 3.7 TH/MM3 (1.8-7.7); BASOPHIL % 0.5 % (0.0-2.0); EOSINOPHIL # 0.1 TH/MM3 (0-0.4); EOSINOPHIL % 1.1 % (0.0-4.0); HEMATOCRIT 38.9 % (35.0-46.0); HEMOGLOBIN 13.4 GM/DL (11.6-15.3); LYMPH % 44.3 % (9.0-44.0); LYMPHOCYTE # 3.3 TH/MM3 (1.0-4.8); MEAN CELL VOLUME 84.5 FL (80.0-100.0); MEAN CORPUSCULAR HGB CONC 34.4 % (32.0-36.0); MEAN PLATELET VOLUME 8.9 FL (7.0-11.0); MONO % 4.6 % (0.0-8.0); MONOCYTE # 0.3 TH/MM3 (0-0.9); NEUT % 49.5 % (16.0-70.0); PLATELET COUNT 292 TH/MM3 (150-450); RED CELL DISTRIBUTION WIDTH 13.7 % (11.6-17.2); WHITE BLOOD COUNT 7.5 TH/MM3 (4.0-11.0)
[2017-04-08 21:11] LABS: ALT (GPT) 26 U/L (10-53); AST (GOT) 27 U/L (15-37); BICARBONATE 24.7 MEQ/L (21.0-32.0); BLOOD UREA NITROGEN 11 MG/DL (7-18); CHLORIDE 107 MEQ/L (98-107); GLOMERULAR FILTRATION RATE 98 ML/MIN (>89); GLUCOSE,RANDOM 95 MG/DL (74-106); SODIUM (NA) 140 MEQ/L (136-145)
[2017-04-08 21:21] LABS: ALKALINE PHOSPHATASE 80 U/L (45-117); TOTAL BILIRUBIN ADULT 0.4 MG/DL (0.2-1.0); TOTAL PROTEIN 8.5 GM/DL (6.4-8.2)
[2017-04-08] MEDS ORDERED: cefTRIAXone 250 MG VIAL IM ONE (21:30)
[2017-04-08] MEDS ORDERED: AZITHROMYCIN 250 MG TAB PO ONE (21:30)
[2017-04-08] MEDS ORDERED: LIDOCAINE HCL 1% 50 ML VIAL XX ONE (21:30)
[2017-04-08] MEDS ORDERED: metroNIDAZOLE 500 MG TAB PO ONE (21:30)
[2017-04-09] MEDS ORDERED: ACETAMINOPHEN 500 MG CPLT PO ONE
[2017-04-09] MEDS ORDERED: VENL100T PO (04:51)
[2017-04-09] MEDS ORDERED: NICOTINE 21 MG/24 HR PATCH T-DERMAL ONE (08:00)
[2017-04-09 09:33] VITALS: BP 129/67; PULSE 65; RESP 16; TEMP 98.3; O2SAT 100
--- NOTE | 2017-04-09 12:42 | PD ---
Data Data Last Documented VS Vital Signs Date Time Temp Pulse Resp B/P (MAP) Pulse Ox O2 Delivery O2 Flow Rate FiO2 04/09/17 09:33 98.3 65 16 129/67 (87) 100 Orders Orders Complete Blood Count With Diff (04/08/17 20:15) Comprehensive Metabolic Panel (04/08/17 20:15) Thyroid Stimulating Hormone (04/08/17 20:15) Psych Screen (04/08/17 20:15) Drug Screen, Random Urine (04/08/17 20:15) Alcohol (Ethanol) (04/08/17 20:15) Wet Prep Profile (04/08/17 20:39) Gc And Chlamydia Pcr (04/08/17 20:39) Azithromycin (Zithromax) (04/08/17 21:30) Metronidazole (Flagyl) (04/08/17 21:30) Ceftriaxone Inj (Rocephin Inj) (04/08/17 21:30) Lidocaine 1% Inj (50 Ml) (Xylocaine 1% I (04/08/17 21:30) Acetaminophen (Tylenol) (04/09/17 00:00) Nicotine 21 Mg Patch.24 Hr (Habitrol 21 (04/09/17 08:00) Diet Regular Basic (04/09/17 Lunch) Ed Discharge Order (04/09/17 12:38) Labs Laboratory Tests Test 04/08/17 20:20 04/08/17 20:25 04/08/17 21:20 Urine Opiates Screen POS Urine Barbiturates Screen POS Urine Amphetamines Screen NEG Urine Benzodiazepines Screen NEG Urine Cocaine Screen NEG Urine Cannabinoids Screen NEG White Blood Count 7.5 TH/MM3 Red Blood Count 4.60 MIL/MM3 Hemoglobin 13.4 GM/DL Hematocrit 38.9 % Mean Corpuscular Volume 84.5 FL Mean Corpuscular Hemoglobin 29.0 PG Mean Corpuscular Hemoglobin Concent 34.4 % Red Cell Distribution Width 13.7 % Platelet Count 292 TH/MM3 Mean Platelet Volume 8.9 FL Neutrophils (%) (Auto) 49.5 % Lymphocytes (%) (Auto) 44.3 % Monocytes (%) (Auto) 4.6 % Eosinophils (%) (Auto) 1.1 % Basophils (%) (Auto) 0.5 % Neutrophils # (Auto) 3.7 TH/MM3 Lymphocytes # (Auto) 3.3 TH/MM3 Monocytes # (Auto) 0.3 TH/MM3 Eosinophils # (Auto) 0.1 TH/MM3 Basophils # (Auto) 0.0 TH/MM3 CBC Comment DIFF FINAL Differential Comment Blood Urea Nitrogen 11 MG/DL Creatinine 0.70 MG/DL Random Glucose 95 MG/DL Total Protein 8.5 GM/DL Albumin 4.0 GM/DL Calcium Level 9.0 MG/DL Alkaline Phosphatase 80 U/L Aspartate Amino Transf (AST/SGOT) 27 U/L Alanine Aminotransferase (ALT/SGPT) 26 U/L Total Bilirubin 0.4 MG/DL Sodium Level 140 MEQ/L Potassium Level 3.4 MEQ/L Chloride Level 107 MEQ/L Carbon Dioxide Level 24.7 MEQ/L Anion Gap 8 MEQ/L Estimat Glomerular Filtration Rate 98 ML/MIN Thyroid Stimulating Hormone 3rd Gen 1.190 uIU/ML Ethyl Alcohol Level LESS THAN 3 MG/DL Clue Cells (Wet Prep) NONE SEEN Vaginal Trichomonas (Wet Prep) NONE SEEN Vaginal Yeast (Wet Prep) NONE SEEN Chlamydia trachomatis DNA (PCR) NOT DETECTED Neisseria gonorrhoeae DNA (PCR) NOT DETECTED MDM Supervised Visit with [facility]: No Narrative Course This patient has been in the emergency department 16 hours awaiting psychiatric evaluation. Psychiatry person out of left for the day and she will not be able to get screening today and will have to wait another 20 hours for psychiatry to come back in the morning. She was offered the chance to wait for that but she declines. She does not feel a danger to herself or others. She is not feeling suicidal. She wants to go home and get outpatient follow-up I reviewed her medical workup which is negative At this point she is feeling well Her boyfriend is going to stay with her for a few days and not leave her alone Diagnosis Primary Impression: Pseudoseizure Additional Impression: STD (female) Patient Instructions: General Instructions Departure Forms: Tests/Procedures Additional Instruction: The patient was advised to follow up with their physician and return if they worsen. Med/Other Pt SpecificInfo: Other Disposition: 01 DISCHARGE HOME Condition: Stable Joao Magana MD Apr 09, 2017 12:42
== END 2017-04-09 12:54 | disposition home or self-care (01) ==
LOC: NEPD 20:08
DX: R56.9 Unspecified convulsions (principal); A64 Unspecified sexually transmitted disease; F31.9 Bipolar disorder, unspecified; K21.9 Gastro-esophageal reflux disease without esophagitis; F43.10 Post-traumatic stress disorder, unspecified; F17.290 Nicotine dependence, other tobacco product, uncomplicated; Z79.899 Other long term (current) drug therapy; Z87.442 Personal history of urinary calculi; Z88.1 Allergy status to other antibiotic agents
CPT/HCPCS: 80053; 80307; 84443; 85025; 87210; 87491; 87591; 96372; 99283; J0696

== ENCOUNTER 2017-05-08 23:32 | Emergency (ER) | payer OTHER ==
[~2017-05-08] VITALS: Ht 167.6 cm; Wt 130.0 kg
[~2017-05-08 23:32] MED LIST changes: +VENL100T PO
[2017-05-08 23:36] VITALS: BP 133/77; PULSE 98; RESP 16; TEMP 98.1; O2SAT 99
[2017-05-08] MEDS ORDERED: SODIUM CHLORIDE 0.9% FLUSH 10 ML FLUSH IV FLUSH PRN (23:45)
[2017-05-08] MEDS ORDERED: SODIUM CHLOR 0.9% 1000 ML INJ 1,000 ML IV SCH (23:45)
--- NOTE | 2017-05-09 00:20 | PD ---
HPI Chief Complaint: Seizure Time Seen by Provider: 23:36 Travel History International Travel<30 days: No Contact w/Intl Traveler<30days: No Traveled to known affect area: No History of Present Illness HPI This is a 32-year-old female presents emergency department for evaluation of possible seizure nausea without vomiting. Patient denies any headache chest pain shortness of breath focalized weakness peer patient is known to me from previous ER visit. She has a history of pseudoseizures. Patient had no postictal phase according to EMS nor bystanders on scene. Patient is complaining of some nausea without vomiting. On my last encounter with her she had multiple system complaints and had a fairly complete workup and was ultimately disposition to psychiatry and was released and went home. Patient states her symptoms are moderate, constant, present ever since her seizure, context as above, associated signs symptoms as above PFSH Past Medical History Arthritis: No Autoimmune Disease: No Blood Disorders: No Bipolar Disorder: Yes Anxiety: Yes Depression: Yes Cancer: Yes (cervical cancer - removed) Cardiovascular Problems: No Chemotherapy: No Cerebrovascular Accident: No Diabetes: No Diminished Hearing: No Endocrine: No Gastrointestinal Disorders: Yes (nausea all the time) GERD: Yes Genitourinary: No Headaches: Yes Immune Disorder: No Implanted Vascular Access Dvce: No Kidney Stones: Yes Musculoskeletal: Yes (back pain) Psychiatric: Yes (Bipolar, ptsd, multiple personalties) Reproductive: Yes Immunizations Current: Yes Migraines: Yes Radiation Therapy: No Seizures: Yes Thyroid Disease: No Ulcer: Yes (PEPTIC) : 0 Para: 0 Miscarriage: 0 : 0 Ovarian Cysts: Yes (3 lap surgeries) Past Surgical History Abdominal Surgery: Yes (gallbladder removed, tonsils and adenoids removed) Cardiac Surgery: No Cholecystectomy: Yes Ear Surgery: No Endocrine Surgery: No Eye Surgery: Yes (left eye surgeries X3 (lazy eye)) Genitourinary Surgery: No Gynecologic Surgery: Yes Neurologic Surgery: No Oral Surgery: No Thoracic Surgery: No Tonsillectomy: Yes Other Surgery: Yes (cervical leep) Social History Alcohol Use: No Tobacco Use: Yes (vape) Substance Use: Yes (MARIJUANA) Allergies-Medications (Allergen,Severity, Reaction): Coded Allergies: erythromycin base (Verified Allergy, Severe, HIVES, 01/27/17) ketorolac (Verified Allergy, Severe, HIVES, 01/27/17) phenobarbital (Verified Allergy, Severe, RASH, 01/27/17) tramadol (Verified Allergy, Severe, RASH, 01/27/17) ondansetron (Verified Adverse Reaction, Severe, Twitching, 01/27/17) metoclopramide (Verified Adverse Reaction, Intermediate, SHAKING, 01/27/17) prochlorperazine (Verified Adverse Reaction, Unknown, AGITATION, 01/27/17) Reported Meds & Prescriptions Reported Meds & Active Scripts Active [place] (Hydrocodone-Acetaminophen) 5 Mg-325 Mg Tab 1 Tab PO Q6H PRN Robaxin (Methocarbamol) 750 Mg Tab 750 Mg PO QID Keppra (Levetiracetam) 500 Mg Tab 500 Mg PO Q12HR Reported Effexor (Venlafaxine HCl) 100 Mg Tab 150 Mg PO DAILY Vistaril (Hydroxyzine Pamoate) 25 Mg Cap 25 Mg PO QID Gabapentin 800 Mg Tab 800 Mg PO TID Tizanidine (Tizanidine HCl) 4 Mg Tab 4 Mg PO HS Ambien (Zolpidem Tartrate) 5 Mg Tab 5 Mg PO HS PRN Review of Systems Except as stated in HPI: all other systems reviewed are Neg Physical Exam Narrative GENERAL: Well-developed well-nourished, no obvious distress per SKIN: Focused skin assessment warm/dry. HEAD: Atraumatic. Normocephalic. EYES: Pupils equal and round. No scleral icterus. No injection or drainage. ENT: No nasal bleeding or discharge. Mucous membranes pink and moist. NECK: Trachea midline. No JVD. CARDIOVASCULAR: Regular rate and rhythm. No murmur appreciated. RESPIRATORY: No accessory muscle use. Clear to auscultation. Breath sounds equal bilaterally. GASTROINTESTINAL: Abdomen soft, non-tender, nondistended. Hepatic and splenic margins not palpable. MUSCULOSKELETAL: No obvious deformities. No clubbing. No cyanosis. No edema. NEUROLOGICAL: Awake and alert. Cranial nerves II through XII grossly intact and nonfocal, 5 out of 5 strength in all 4 extremities, no seizure activity while in the emergency department PSYCHIATRIC: Appropriate mood and affect; insight and judgment normal. Data Data Last Documented VS Vital Signs Date Time Temp Pulse Resp B/P (MAP) Pulse Ox O2 Delivery O2 Flow Rate FiO2 05/09/17 01:54 05/09/17 01:52 80 16 98 Room Air 05/08/17 23:36 98.1 Orders Orders Complete Blood Count With Diff (05/08/17 23:45) Comprehensive Metabolic Panel (05/08/17 23:45) Lipase (05/08/17 23:45) Urinalysis - C+S If Indicated (05/08/17 23:45) Iv Access Insert/Monitor (05/08/17 23:45) Ecg Monitoring (05/08/17 23:45) Oximetry (05/08/17 23:45) Sodium Chlor 0.9% 1000 Ml Inj (Ns 1000 M (05/08/17 23:45) Sodium Chloride 0.9% Flush (Ns Flush) (05/08/17 23:45) Ed Urine Pregnancytest Poc (05/08/17 23:45) Ondansetron Inj (Zofran Inj) (05/09/17 00:45) Ed Discharge Order (05/09/17 01:48) Labs Laboratory Tests Test 05/09/17 00:15 05/09/17 00:45 Urine Color YELLOW Urine Turbidity HAZY Urine pH 5.5 Urine Specific [place] 1.017 Urine Protein TRACE mg/dL Urine Glucose (UA) NEG mg/dL Urine Ketones NEG mg/dL Urine Occult Blood NEG Urine Nitrite NEG Urine Bilirubin NEG Urine Urobilinogen LESS THAN 2.0 MG/DL Urine Leukocyte Esterase NEG Urine RBC 3 /hpf Urine WBC 6 /hpf Urine Squamous Epithelial Cells 39 /hpf Urine Bacteria OCC /hpf Urine Mucus MOD /lpf Microscopic Urinalysis Comment CULT NOT INDICATED White Blood Count 9.1 TH/MM3 Red Blood Count 4.54 MIL/MM3 Hemoglobin 13.4 GM/DL Hematocrit 38.6 % Mean Corpuscular Volume 85.1 FL Mean Corpuscular Hemoglobin 29.6 PG Mean Corpuscular Hemoglobin Concent 34.8 % Red Cell Distribution Width 14.0 % Platelet Count 275 TH/MM3 Mean Platelet Volume 9.0 FL Neutrophils (%) (Auto) 55.2 % Lymphocytes (%) (Auto) 35.5 % Monocytes (%) (Auto) 7.4 % Eosinophils (%) (Auto) 1.5 % Basophils (%) (Auto) 0.4 % Neutrophils # (Auto) 5.0 TH/MM3 Lymphocytes # (Auto) 3.2 TH/MM3 Monocytes # (Auto) 0.7 TH/MM3 Eosinophils # (Auto) 0.1 TH/MM3 Basophils # (Auto) 0.0 TH/MM3 CBC Comment DIFF FINAL Differential Comment Blood Urea Nitrogen 7 MG/DL Creatinine 0.81 MG/DL Random Glucose 95 MG/DL Total Protein 8.0 GM/DL Albumin 3.8 GM/DL Calcium Level 8.5 MG/DL Alkaline Phosphatase 89 U/L Aspartate Amino Transf (AST/SGOT) 52 U/L Alanine Aminotransferase (ALT/SGPT) 50 U/L Total Bilirubin 0.5 MG/DL Sodium Level 141 MEQ/L Potassium Level 3.3 MEQ/L Chloride Level 107 MEQ/L Carbon Dioxide Level 25.0 MEQ/L Anion Gap 9 MEQ/L Estimat Glomerular Filtration Rate 82 ML/MIN Lipase 98 U/L MDM Medical Decision Making Medical Screen Exam Complete: Yes Emergency Medical Condition: Yes Differential Diagnosis Pseudoseizure, seizure, nausea, Narrative Course Patient room to the emergency department, appears well in no obvious distress, she had negative test. She has been requesting Phenergan for her nausea. I have offered Zofran. She has not had any emesis while in the emergency department. Her abdomen is benign and there is no indication further workup beyond basic labs which are negative. She is stable for discharge Diagnosis Primary Impression: Nausea Additional Impression: Seizure-like activity Disposition: 01 DISCHARGE HOME Condition: Stable gB Garza MD May 09, 2017 00:20
[2017-05-09 00:30] VITALS: O2SAT 99
[2017-05-09 00:35] LABS: BACTERIA, URINE OCC /hpf; BILIRUBIN, URINE NEG (NEG); BLOOD, URINE NEG (NEG); GLUCOSE,URINE NEG (NEG); KETONE, URINE NEG (NEG); MUCUS URINE MOD /lpf (OCC); NITRITE,URINE NEG (NEG); PH, URINE 5.5 (5.0-8.5); SQUAMOUS EPITHELIAL CELL URINE 39 /hpf (0-5); URINE COLOR YELLOW (YELLW/STRAW); URINE LEUKOCYTE ESTERASE NEG (NEG)
[2017-05-09] MEDS ORDERED: ONDANSETRON HCL 4 MG/2 ML VIAL IV PUSH ONE (00:45)
[2017-05-09 01:07] LABS: BASOPHIL % 0.4 % (0.0-2.0); EOSINOPHIL # 0.1 TH/MM3 (0-0.4); EOSINOPHIL % 1.5 % (0.0-4.0); HEMATOCRIT 38.6 % (35.0-46.0); HEMOGLOBIN 13.4 GM/DL (11.6-15.3); LYMPH % 35.5 % (9.0-44.0); LYMPHOCYTE # 3.2 TH/MM3 (1.0-4.8); MEAN CELL VOLUME 85.1 FL (80.0-100.0); MEAN CORPUSCULAR HEMOGLOBIN 29.6 PG (27.0-34.0); MEAN CORPUSCULAR HGB CONC 34.8 % (32.0-36.0); MONO % 7.4 % (0.0-8.0); MONOCYTE # 0.7 TH/MM3 (0-0.9); NEUT % 55.2 % (16.0-70.0); PLATELET COUNT 275 TH/MM3 (150-450); RED BLOOD COUNT 4.54 MIL/MM3 (4.00-5.30); WHITE BLOOD COUNT 9.1 TH/MM3 (4.0-11.0)
[2017-05-09 01:33] LABS: ALKALINE PHOSPHATASE 89 U/L (45-117); TOTAL BILIRUBIN ADULT 0.5 MG/DL (0.2-1.0)
[2017-05-09 01:34] LABS: ALBUMIN 3.8 GM/DL (3.4-5.0); ALT (GPT) 50 U/L (10-53); AST (GOT) 52 U/L (15-37); BLOOD UREA NITROGEN 7 MG/DL (7-18); CALCIUM 8.5 MG/DL (8.5-10.1); CHLORIDE 107 MEQ/L (98-107); CREATININE 0.81 MG/DL (0.50-1.00); GLOMERULAR FILTRATION RATE 82 ML/MIN (>89); GLUCOSE,RANDOM 95 MG/DL (74-106); SODIUM (NA) 141 MEQ/L (136-145)
[2017-05-09 01:52] VITALS: BP 149/61; PULSE 80; RESP 16; O2SAT 98
== END 2017-05-09 02:01 | disposition home or self-care (01) ==
LOC: NEPE 23:32
DX: R11.0 Nausea (principal); R56.9 Unspecified convulsions; F12.90 Cannabis use, unspecified, uncomplicated; F31.9 Bipolar disorder, unspecified
CPT/HCPCS: 80053; 81001; 83690; 84703; 85025; 96374; 99284; J2405; J7030

== ENCOUNTER 2017-06-30 00:54 | Emergency (ER) | payer OTHER ==
[2017-06-30] MEDS ORDERED: SODIUM CHLORIDE 0.9% FLUSH 10 ML FLUSH IVF (02:30)
[2017-06-30] MEDS: SODIUM CHLOR 0.9% 1000 ML INJ 1,000 ML IV (03:17)
[2017-06-30 03:28] LABS: AUTOMATED NEUTROPHIL # 4.1 TH/MM3 (1.8-7.7); BASOPHIL % 0.5 % (0.0-2.0); EOSINOPHIL # 0.2 TH/MM3 (0-0.4); EOSINOPHIL % 2.2 % (0.0-4.0); HEMATOCRIT 33.7 % (35.0-46.0); HEMO FLAGS DIFF FINAL; HEMOGLOBIN 11.7 GM/DL (11.6-15.3); LYMPH % 36.6 % (9.0-44.0); LYMPHOCYTE # 2.7 TH/MM3 (1.0-4.8); MEAN CELL VOLUME 85.6 FL (80.0-100.0); MEAN CORPUSCULAR HEMOGLOBIN 29.8 PG (27.0-34.0); MEAN CORPUSCULAR HGB CONC 34.8 % (32.0-36.0); MEAN PLATELET VOLUME 8.4 FL (7.0-11.0); MONOCYTE # 0.4 TH/MM3 (0-0.9); NEUT % 54.7 % (16.0-70.0); PLATELET COUNT 310 TH/MM3 (150-450); RED BLOOD COUNT 3.94 MIL/MM3 (4.00-5.30); RED CELL DISTRIBUTION WIDTH 13.8 % (11.6-17.2); WHITE BLOOD COUNT 7.4 TH/MM3 (4.0-11.0)
[2017-06-30 03:38] LABS: APTT (PATIENT) 26.4 SEC (24.3-30.1); PROTHROMBIN TIME - PATIENT 10.5 SEC (9.8-11.6)
[2017-06-30 03:38] LABS: SALICYLATES LESS THAN 1.7 MG/DL (2.8-20.0)
[2017-06-30 03:40] LABS: ALBUMIN 3.4 GM/DL (3.4-5.0); ALT (GPT) 25 U/L (10-53); ANION GAP 8 MEQ/L (5-15); AST (GOT) 22 U/L (15-37); BICARBONATE 27.6 MEQ/L (21.0-32.0); BLOOD UREA NITROGEN 11 MG/DL (7-18); CALCIUM 8.4 MG/DL (8.5-10.1); CHLORIDE 106 MEQ/L (98-107); CREATININE 0.72 MG/DL (0.50-1.00); GLOMERULAR FILTRATION RATE 94 ML/MIN (>89); GLUCOSE,RANDOM 101 MG/DL (74-106); POTASSIUM 3.1 MEQ/L (3.5-5.1); SODIUM (NA) 142 MEQ/L (136-145)
[2017-06-30 03:45] LABS: ALKALINE PHOSPHATASE 79 U/L (45-117); TOTAL BILIRUBIN ADULT 0.4 MG/DL (0.2-1.0); TOTAL PROTEIN 7.3 GM/DL (6.4-8.2); TROPONIN I LESS THAN 0.02 NG/ML (0.02-0.05)
[2017-06-30 03:48] LABS: ACETAMINOPHEN LESS THAN 2.0 MCG/ML (10.0-30.0); ALCOHOL LESS THAN 3 MG/DL (0-5); CREATINE KINASE 64 U/L (26-192)
[2017-06-30 04:07] LABS: OSMOLALITY,SERUM 292 MOSM/KG (275-295)
[2017-06-30 06:31] LABS: BILIRUBIN, URINE NEG (NEG); BLOOD, URINE NEG (NEG); COMMENT (UR) CULT NOT INDICATED; CULTURE IF INDICATED CULT NOT INDICATED; GLUCOSE,URINE NEG (NEG); KETONE, URINE NEG (NEG); MUCUS URINE MANY /lpf (OCC); NITRITE,URINE NEG (NEG); PH, URINE 6.5 (5.0-8.5); SQUAMOUS EPITHELIAL CELL URINE 1 /hpf (0-5); URINE COLOR YELLOW (YELLW/STRAW); URINE LEUKOCYTE ESTERASE NEG (NEG)
[2017-06-30 06:33] LABS: AMPHETAMINE, URINE NEG (NEG); BARBITURATES, URINE NEG (NEG); BENZODIAZEPINE,URINE NEG (NEG); CANNABINOIDS, URINE POS (NEG); COCAINE, URINE NEG (NEG)
[2017-06-30 06:39] LABS: OSMOLALITY,URINE 861 MOSM/KG (300-1300)
== END 2017-06-30 07:35 | disposition home or self-care (01) ==
LOC: NEPE 00:54
DX: T43.591A Poisoning by other antipsychotics and neuroleptics, accidental (unintentional), initial encounter (principal); I49.8 Other specified cardiac arrhythmias; F31.9 Bipolar disorder, unspecified; F43.10 Post-traumatic stress disorder, unspecified; F12.90 Cannabis use, unspecified, uncomplicated; Z72.0 Tobacco use; Z79.899 Other long term (current) drug therapy
CPT/HCPCS: 71045; 80053; 80307; 81001; 82550; 83930; 83935; 84484; 85025; 85610; 85730; 93005; 96360; 99285-25

== ENCOUNTER 2017-07-13 16:29 | Emergency (ER) | payer OTHER ==
[~2017-07-13] VITALS: Ht 167.6 cm; Wt 130.0 kg
[~2017-07-13 16:29] MED LIST changes: -NORC5TAB PO; -ROBA750T PO; -TIZA4TAB PO
[2017-07-13 17:05] VITALS: BP 126/78; PULSE 75; RESP 20; TEMP 97.8; O2SAT 100
[2017-07-13] MEDS ORDERED: SODIUM CHLOR 0.9% 1000 ML INJ 1,000 ML IV SCH (17:18)
[2017-07-13] MEDS ORDERED: PROMETHAZINE INJ 25 MG/ML VIAL IM ONE (17:30)
[2017-07-13] MEDS ORDERED: MORPHINE SULFATE 4 MG/ML INJ IV PUSH ONE (17:30)
[2017-07-13 17:46] VITALS: RESP 16
[2017-07-13 18:17] LABS: AUTOMATED NEUTROPHIL # 4.4 TH/MM3 (1.8-7.7); BASOPHIL % 0.4 % (0.0-2.0); EOSINOPHIL # 0.2 TH/MM3 (0-0.4); EOSINOPHIL % 2.3 % (0.0-4.0); HEMOGLOBIN 11.8 GM/DL (11.6-15.3); LYMPH % 39.6 % (9.0-44.0); LYMPHOCYTE # 3.4 TH/MM3 (1.0-4.8); MEAN CELL VOLUME 87.5 FL (80.0-100.0); MEAN CORPUSCULAR HEMOGLOBIN 31.2 PG (27.0-34.0); MEAN CORPUSCULAR HGB CONC 35.7 % (32.0-36.0); MEAN PLATELET VOLUME 8.8 FL (7.0-11.0); MONO % 5.7 % (0.0-8.0); MONOCYTE # 0.5 TH/MM3 (0-0.9); PLATELET COUNT 254 TH/MM3 (150-450); RED BLOOD COUNT 3.77 MIL/MM3 (4.00-5.30); RED CELL DISTRIBUTION WIDTH 13.8 % (11.6-17.2); WHITE BLOOD COUNT 8.5 TH/MM3 (4.0-11.0)
--- NOTE | 2017-07-13 18:24 | RADRPT ---
EXAM DATE/TIME: 07/13/2017 17:49 [facility] COMPARISON: CT ABDOMEN & PELVIS W/O CONTRAST, February 04, 2017, 2:13. INDICATIONS : Left flank pain past 2 days. ORAL CONTRAST: No oral contrast ingested. RADIATION DOSE: 21.94 CTDIvol (mGy) MEDICAL HISTORY : Seizures. Gastroesophageal reflux disease. Cervical cancer SURGICAL HISTORY : Cholecystectomy. ENCOUNTER: Initial ACUITY: 2 days PAIN SCALE: 8/10 LOCATION: Left flank TECHNIQUE: Volumetric scanning of the abdomen and pelvis was performed. Using automated exposure control and ad justment of the mA and/or kV according to patient size, radiation dose was kept as low as reasonably achievable to obtain optimal diagnostic quality images. DICOM format image data is available electro nically for review and comparison. FINDINGS: LOWER LUNGS: The visualized lower lungs are clear. LIVER: Homogeneous density without lesion. There is no dilation of the biliary tree. No calcified gallston es. SPLEEN: Normal size without lesion. PANCREAS: Within normal limits. KIDNEYS: Normal in size and shape. There is no mass, stone, or hydronephrosis. No ureteral stones. ADRENAL GLANDS: Within normal limits. VASCULAR: There is no aortic aneurysm. BOWEL/MESENTERY: The stomach, small bowel, and colon demonstrate no acute abnormality. There is no free intraperitone al air or fluid. ABDOMINAL WALL: Within normal limits. RETROPERITONEUM: There is no lymphadenopathy. BLADDER: No wall thickening or mass. REPRODUCTIVE: There is a cystic lesion within the right adnexa. Measures 4.9 cm with Hounsfield units 11. A trace a mount of free fluid within the cul-de-sac. Uterus is just to the left of midline. An IUD is noted. INGUINAL: There is no lymphadenopathy or hernia. MUSCULOSKELETAL: Within normal limits for patient age. CONCLUSION: 1. 4.9 cm cystic lesion within the right adnexa likely ovarian in nature. There is a trace amount of free fluid within the cul-de-sac. 2. IUD. 3. No renal stones. Ayo Hardin Jr., MD on July 13, 2017 at 18:19 Board Certified Radiologist. This report was verified electronically.
[2017-07-13 18:26] LABS: BILIRUBIN, URINE NEG (NEG); BLOOD, URINE NEG (NEG); GLUCOSE,URINE NEG (NEG); KETONE, URINE NEG (NEG); NITRITE,URINE NEG (NEG); PH, URINE 5.5 (5.0-8.5); URINE COLOR YELLOW (YELLW/STRAW); URINE LEUKOCYTE ESTERASE NEG (NEG)
[2017-07-13 18:38] LABS: ALBUMIN 2.9 GM/DL (3.4-5.0); BICARBONATE 20.8 MEQ/L (21.0-32.0); CALCIUM 7.3 MG/DL (8.5-10.1); CALCIUM-PROTEIN CORRECTED 7.6 MG/DL (8.5-10.1); CREATININE 0.58 MG/DL (0.50-1.00); TOTAL BILIRUBIN ADULT 0.2 MG/DL (0.2-1.0); TOTAL PROTEIN 6.5 GM/DL (6.4-8.2)
[2017-07-13 18:54] LABS: BACTERIA, URINE RARE /hpf; MUCUS URINE FEW /lpf (OCC); SQUAMOUS EPITHELIAL CELL URINE 15 /hpf (0-5)
[2017-07-13] MEDS ORDERED: cefTRIAXone INJ 1,000 MG in SODIUM CHLORIDE 0.9% INJ 100 ML IV ONE (19:30)
--- NOTE | 2017-07-13 19:51 | PD ---
HPI Chief Complaint: Flank/Kidney Pain Time Seen by Provider: 17:14 Travel History International Travel<30 days: No Contact w/Intl Traveler<30days: No Traveled to known affect area: No History of Present Illness HPI 32-year-old female who presents to the ED for evaluation of left flank and left pelvic pain. Per patient she has had this for about 2 days now. Per patient is becoming more severe. She states having a history of urinary tract infections but no history of kidney stones in the past. Per patient she has a family history of kidney issues. She has been here multiple times in the past for similar complaints with normal results alert and some UTIs. Patient denies any chest pain or shortness of breath. No injury. Pain stays mainly on the left side and not on the right. States having some vaginal discharge which per patient is her normal before she ovulates. Denies any vaginal bleeding. Denies any chest pain. No shortness of breath. Per patient he does burn to urinate. Denies any bowel movement issues. No blood thinner use. She has not seen anybody for this. She does have multiple allergies to different medications. Per patient she takes Phenergan chronically for nausea which is prescribed to her by her doctor. She took one of this with some relief of the nausea. She states that she also feels nauseous and vomiting. Pain per patient is 7 out of 10. PFSH Past Medical History Arthritis: No Autoimmune Disease: No Blood Disorders: No Bipolar Disorder: Yes Anxiety: Yes Depression: Yes Cancer: Yes (cervical cancer - removed) Cardiovascular Problems: No Chemotherapy: No Cerebrovascular Accident: No Diabetes: No Diminished Hearing: No Endocrine: No Gastrointestinal Disorders: Yes (nausea all the time) GERD: Yes Genitourinary: No Headaches: Yes Immune Disorder: No Implanted Vascular Access Dvce: No Kidney Stones: Yes Musculoskeletal: Yes (back pain) Psychiatric: Yes (Bipolar, ptsd, multiple personalties) Reproductive: Yes Immunizations Current: Yes Migraines: Yes Radiation Therapy: No Seizures: Yes Thyroid Disease: No Ulcer: Yes (PEPTIC) Tetanus Vaccination: < 5 Years Influenza Vaccination: Yes ?: Unknown LMP: IUD : 0 Para: 0 Miscarriage: 0 : 0 Ovarian Cysts: Yes (3 lap surgeries) Past Surgical History Abdominal Surgery: Yes (gallbladder removed, tonsils and adenoids removed) Cardiac Surgery: No Cholecystectomy: Yes Ear Surgery: No Endocrine Surgery: No Eye Surgery: Yes (left eye surgeries X3 (lazy eye)) Genitourinary Surgery: No Gynecologic Surgery: Yes Neurologic Surgery: No Oral Surgery: No Thoracic Surgery: No Tonsillectomy: Yes Other Surgery: Yes (cervical leep) Social History Alcohol Use: Yes (OCC) Tobacco Use: Yes (vape) Substance Use: Yes (MARIJUANA) Allergies-Medications (Allergen,Severity, Reaction): Coded Allergies: erythromycin base (Verified Allergy, Severe, HIVES, 06/30/17) ketorolac (Verified Allergy, Severe, HIVES, 06/30/17) phenobarbital (Verified Allergy, Severe, RASH, 06/30/17) tramadol (Verified Allergy, Severe, RASH, 06/30/17) ondansetron (Verified Adverse Reaction, Severe, Twitching, 06/30/17) metoclopramide (Verified Adverse Reaction, Intermediate, SHAKING, 06/30/17) prochlorperazine (Verified Adverse Reaction, Unknown, AGITATION, 06/30/17) Reported Meds & Prescriptions Reported Meds & Active Scripts Active Hydrocodone-Acetaminophen 7.5 Mg-325 Mg Tab 1 Tab PO Q6H PRN Acyclovir 400 Mg Tab 400 Mg PO TID 7 Days Metronidazole 500 Mg Tab 500 Mg PO BID 7 Days Keppra (Levetiracetam) 500 Mg Tab 500 Mg PO Q12HR Reported Effexor (Venlafaxine HCl) 100 Mg Tab 150 Mg PO DAILY Vistaril (Hydroxyzine Pamoate) 25 Mg Cap 25 Mg PO QID Gabapentin 800 Mg Tab 800 Mg PO TID Ambien (Zolpidem Tartrate) 5 Mg Tab 5 Mg PO HS PRN Review of Systems Except as stated in HPI: all other systems reviewed are Neg Physical Exam Narrative GENERAL: SKIN: Warm and dry. HEAD: Atraumatic. Normocephalic. EYES: Pupils equal and round. No scleral icterus. No injection or drainage. ENT: No nasal bleeding or discharge. Mucous membranes pink and moist. Tongue is midline. No uvula deviation. NECK: Trachea midline. No JVD. CARDIOVASCULAR: Regular rate and rhythm. No murmurs, S3, S4. RESPIRATORY: No accessory muscle use. Clear to auscultation. Breath sounds equal bilaterally. GASTROINTESTINAL: Abdomen soft, tender to palpation in the left lower quadrant and left flank, nondistended. Hepatic and splenic margins not palpable. MUSCULOSKELETAL: Extremities without clubbing, cyanosis, or edema. No obvious deformities. Full range of motion of the upper and lower extremities bilaterally. 2+ pulses bilaterally. NEUROLOGICAL: Awake and alert. No obvious cranial nerve deficits. Motor grossly within normal limits. Five out of 5 muscle strength in the arms and legs. Normal speech. PSYCHIATRIC: Appropriate mood and affect; insight and judgment normal. Data Data Last Documented VS Vital Signs Date Time Temp Pulse Resp B/P (MAP) Pulse Ox O2 Delivery O2 Flow Rate FiO2 07/13/17 17:46 16 07/13/17 17:25 86 07/13/17 17:05 97.8 126/78 (94) 100 Orders Orders Complete Blood Count With Diff (07/13/17 17:18) Comprehensive Metabolic Panel (07/13/17 17:18) Urinalysis - C+S If Indicated (07/13/17 17:18) Ct Abd/Pel W/O Iv Contrast (07/13/17 17:18) Iv Access Insert/Monitor (07/13/17 17:18) Morphine Inj (Morphine Inj) (07/13/17 17:30) Sodium Chlor 0.9% 1000 Ml Inj (Ns 1000 M (07/13/17 17:18) Promethazine Inj (Phenergan Inj) (07/13/17 17:30) Lactic Acid Sepsis Protocol (07/13/17 17:20) Ceftriaxone Inj (Rocephin Inj) (07/13/17 19:30) Hydromorphone Pf Inj (Dilaudid Pf Inj) (07/13/17 20:00) Us Pelvis Comp W Dop Transvag (07/13/17 ) Gc And Chlamydia Pcr (07/13/17 20:31) Wet Prep Profile (07/13/17 20:31) Metronidazole (Flagyl) (07/13/17 21:15) Labs Laboratory Tests Test 07/13/17 17:41 07/13/17 18:00 07/13/17 20:40 Urine Color YELLOW Urine Turbidity HAZY Urine pH 5.5 Urine Specific [place] 1.022 Urine Protein NEG mg/dL Urine Glucose (UA) NEG mg/dL Urine Ketones NEG mg/dL Urine Occult Blood NEG Urine Nitrite NEG Urine Bilirubin NEG Urine Urobilinogen 0.2 MG/DL Urine Leukocyte Esterase NEG Urine RBC LESS THAN 1 /hpf Urine WBC 1 /hpf Urine Squamous Epithelial Cells 15 /hpf Urine Bacteria RARE /hpf Urine Mucus FEW /lpf Microscopic Urinalysis Comment CULT NOT INDICATED White Blood Count 8.5 TH/MM3 Red Blood Count 3.77 MIL/MM3 Hemoglobin 11.8 GM/DL Hematocrit 33.0 % Mean Corpuscular Volume 87.5 FL Mean Corpuscular Hemoglobin 31.2 PG Mean Corpuscular Hemoglobin Concent 35.7 % Red Cell Distribution Width 13.8 % Platelet Count 254 TH/MM3 Mean Platelet Volume 8.8 FL Neutrophils (%) (Auto) 52.0 % Lymphocytes (%) (Auto) 39.6 % Monocytes (%) (Auto) 5.7 % Eosinophils (%) (Auto) 2.3 % Basophils (%) (Auto) 0.4 % Neutrophils # (Auto) 4.4 TH/MM3 Lymphocytes # (Auto) 3.4 TH/MM3 Monocytes # (Auto) 0.5 TH/MM3 Eosinophils # (Auto) 0.2 TH/MM3 Basophils # (Auto) 0.0 TH/MM3 CBC Comment DIFF FINAL Differential Comment Blood Urea Nitrogen 9 MG/DL Creatinine 0.58 MG/DL Random Glucose 87 MG/DL Total Protein 6.5 GM/DL Albumin 2.9 GM/DL Calcium Level 7.3 MG/DL Alkaline Phosphatase 72 U/L Aspartate Amino Transf (AST/SGOT) 20 U/L Alanine Aminotransferase (ALT/SGPT) 21 U/L Total Bilirubin 0.2 MG/DL Sodium Level 142 MEQ/L Potassium Level 3.6 MEQ/L Chloride Level 113 MEQ/L Carbon Dioxide Level 20.8 MEQ/L Anion Gap 8 MEQ/L Estimat Glomerular Filtration Rate 121 ML/MIN Lactic Acid Level 1.0 mmol/L Protein Corrected Calcium 7.6 MG/DL Clue Cells (Wet Prep) PRESENT Vaginal Trichomonas (Wet Prep) NONE SEEN Vaginal Yeast (Wet Prep) NONE SEEN MDM Medical Decision Making Medical Screen Exam Complete: Yes Emergency Medical Condition: Yes Medical Record Reviewed: Yes Interpretation(s) CBC & BMP Diagram 07/13/17 18:00 Total Protein 6.5, Albumin 2.9 L, Calcium Level 7.3 *L, Alkaline Phosphatase 72 , Aspartate Amino Transf (AST/SGOT) 20, Alanine Aminotransferase (ALT/SGPT) 21, Total Bilirubin 0.2 Last Impressions Abdomen/Pelvis CT 07/13/17 1718 Signed Impressions: Service Date/Time: Thursday, July 13, 2017 17:49 - CONCLUSION: 1. 4.9 cm cystic lesion within the right adnexa likely ovarian in nature. There is a trace amount of free fluid within the cul-de-sac. 2. IUD. 3. No renal stones. Ayo Hardin Jr., MD Abdomen/Pelvis/Transvag US 07/13/17 0000 Signed Impressions: Service Date/Time: Thursday, July 13, 2017 19:30 - CONCLUSION: 1. 5.7 cm simple right ovarian cyst. 2. IUD. Ayo Hardin Jr., MD UA shows some bacteria otherwise unremarcable. wet prep positive for clue cells Differential Diagnosis Flank pain versus abdominal pain versus kidney stone versus pyelonephritis versus UTI versus ovarian cyst Narrative Course 32-year-old female that presents to the ED for evaluation of pelvic and flank pain. Patient was properly examined and was found to have signs and symptoms of unclear etiology. Labs and imaging order. Patient was given IV pain medications and Phenergan IM. Labs and imaging showed positive for ovarian cyst. Patient still complains of pain. Ultrasound was ordered. Ultrasound was negative for acute disease or alexandre for ovarian cyst. Pelvic exam was done with female nurse present and she will discharge. Discharge was evaluated and show positive for bacterial vaginosis. At this time patient was treated for this with Flagyl. With further conversation with the patient and the significant other apparently patient was recently seen by PCP and diagnosed with herpes but has not been started on treatment. Per patient about a week ago she had evaluation for STDs and she was told that she was negative for chlamydia and gonorrhea. She denies any exposure to weight recently. At this time I do think that this is likely related to bacterial vaginosis. She was given ceftriaxone initially to cover for bacterial infection from the urine. Patient was started on Flagyl and given first dose here. Patient has not been started on herpes treatment and I think at this time is reasonable to start this. Patient was started on acyclovir. Given a short prescription for pain medication. Told to follow-up closely with PCP. See ED if worsening symptoms. Diagnosis Primary Impression: Bacterial vaginosis Additional Impressions: Herpes simplex UTI (urinary tract infection) Qualified Codes: N39.0 - Urinary tract infection, site not specified Patient Instructions: General Instructions Additional Instructions: Take medications as prescribed. Follow-up with PCP. See ED for any worsening symptoms. Do not drink or drive while taking pain medication. Apply ice or heat as needed for pain Med/Other Pt SpecificInfo: Prescription(s) given Scripts Hydrocodone-Acetaminophen (Hydrocodone-Acetaminophen) 7.5 Mg-325 Mg Tab 1 TAB PO Q6H Y for PAIN, #12 TAB 0 Refills Prov: Manuela Machado MD 07/13/17 Acyclovir (Acyclovir) 400 Mg Tab 400 MG PO TID for Mgmt Viral Infection for 7 Days, TAB 0 Refills Prov: Manuela Machado MD 07/13/17 Metronidazole (Metronidazole) 500 Mg Tab 500 MG PO BID for Infection for 7 Days, #14 TAB 0 Refills Prov: Manuela Machado MD 07/13/17 Disposition: 01 DISCHARGE HOME Condition: Stable Pato Soto July 13, 2017 19:51
[2017-07-13] MEDS ORDERED: HYDROmorphone HCL PF 0.5 MG/0.5 ML SYRINGE IV PUSH ONE (20:00)
--- NOTE | 2017-07-13 20:31 | RADRPT ---
EXAM DATE/TIME: 07/13/2017 19:30 [facility] COMPARISON: CT ABDOMEN & PELVIS W/O CONTRAST, July 13, 2017, 17:49. INDICATIONS : Pelvic pain. MEDICAL HISTORY : Gastroesophageal reflux disease. Seizures. Dizziness. Ulcer. Pelvic inflammatory disease. Ovarian cysts. Kidney stones. Urinary tract infection. PTSD. Depression. Anxiety. Cervical cancer. MRSA. SURGICAL HISTORY : Tonsillectomy. Cholecystectomy. Left eye surgery. Cervical conization. Cervical cancer removed. ENCOUNTER: Subsequent ACUITY: 2 days PAIN SCORE: 7/10 LOCATION: Bilateral neck MEASUREMENTS: UTERUS: 8.2 x 4.4 x 3.5 cm ENDOMETRIAL STRIPE: 4 mm RIGHT OVARY: 5.7 x 5.6 x 5.3 cm LEFT OVARY: 2.5 x 2.0 x 1.6 cm FINDINGS: UTERUS: The myometrium has homogeneous echotexture without mass.IUD noted. RIGHT OVARY: 5.7 x 4.9 x 4.5 cm simple cyst involving the right ovary. This is anechoic in nature. Strong posterio r acoustical enhancement. Ovarian blood flow is symmetrical. No solid lesions observed. LEFT OVARY: Ovary contains no mass or significant cystic lesion. MISCELLANEOUS: No free fluid. CONCLUSION: 1. 5.7 cm simple right ovarian cyst. 2. IUD. Ayo Hardin Jr., MD on July 13, 2017 at 20:27 Board Certified Radiologist. This report was verified electronically.
[2017-07-13] MEDS ORDERED: METR1TAB76 PO (21:14)
[2017-07-13] MEDS ORDERED: ACYC400T PO (21:14)
[2017-07-13] MEDS ORDERED: HYDR-3580 PO (21:14)
[2017-07-13] MEDS ORDERED: metroNIDAZOLE 500 MG TAB PO ONE (21:15)
== END 2017-07-13 21:32 | disposition home or self-care (01) ==
LOC: NEPE 16:29
DX: N76.0 Acute vaginitis (principal); B96.89 Other specified bacterial agents as the cause of diseases classified elsewhere; N39.0 Urinary tract infection, site not specified; B00.9 Herpesviral infection, unspecified; F12.90 Cannabis use, unspecified, uncomplicated; F31.9 Bipolar disorder, unspecified; Z72.0 Tobacco use
CPT/HCPCS: 74176; 76830; 76856; 80053; 81001; 83605; 85025; 87210; 87491; 87591; 93975; 96361; 96365; 96372; 96375; 99285; J0696; J1170; J2270; J2550; J7030

== ENCOUNTER 2017-08-09 21:15 | Emergency (ER) | payer OTHER ==
[~2017-08-09] VITALS: Ht 170.2 cm; Wt 137.0 kg
[~2017-08-09 21:15] MED LIST changes: +ACYC400T PO; +HYDR-3580 PO; +METR1TAB76 PO
[2017-08-09 21:25] VITALS: BP 136/95; PULSE 88; RESP 18; TEMP 98.9; O2SAT 98
--- NOTE | 2017-08-09 21:47 | PD ---
HPI Chief Complaint: Seizure Time Seen by Provider: 21:28 Travel History International Travel<30 days: No Contact w/Intl Traveler<30days: No Traveled to known affect area: No History of Present Illness HPI The patient is a 32 year old female who presents to the [facility] emergency department with a history of seizure activity that began prior to arrival. The patient has a known history of seizure disorder as well as pseudoseizures from the record. The patient was noted to have what appeared to be generalized clonic tonic seizure activity according to ambulance services. The patient was given 2-1/2 mg of Versed IM in the right thigh prior to arrival. The patient on arrival is awake and alert. The patient reports that she has been taking her Keppra 500 mg twice a day as prescribed. She reports that she also takes Vistaril as needed for anxiety. She denies being on any other medications. She cannot recall the name of her neurologist. The patient reports having a generalized headache at this time. She reports that she does get a headache prior to developing a seizure. The patient denies any history of fever, cough, congestion, neck pain, chest pain, shortness of breath, abdominal pain, vomiting, diarrhea, urinary symptoms , or neurologic symptoms. [facility] [place] Past Medical History Narrative Medical The patient's past medical history is significant for bipolar disorder, cervical cancer, acid reflux, migraine headaches, kidney stones, chronic back pain, multiple personality disorder, posttraumatic stress disorder, seizure disorder, pseudoseizures. Arthritis: No Autoimmune Disease: No Blood Disorders: No Bipolar Disorder: Yes Anxiety: Yes Depression: Yes Cancer: Yes (cervical cancer - removed) Cardiovascular Problems: No Chemotherapy: No Cerebrovascular Accident: No Diabetes: No Diminished Hearing: No Endocrine: No Gastrointestinal Disorders: Yes (nausea all the time) GERD: Yes Genitourinary: No Headaches: Yes Immune Disorder: No Implanted Vascular Access Dvce: No Kidney Stones: Yes Musculoskeletal: Yes (back pain) Psychiatric: Yes (Bipolar, ptsd, multiple personalties) Reproductive: Yes Immunizations Current: Yes Migraines: Yes Radiation Therapy: No Seizures: Yes Thyroid Disease: No Ulcer: Yes (PEPTIC) : 0 Para: 0 Miscarriage: 0 : 0 Ovarian Cysts: Yes (3 lap surgeries) Past Surgical History Narrative Surgical The patient's past surgical history is significant for cholecystectomy, tonsil and adenoidectomy, left eye surgery related to strabismus. Abdominal Surgery: Yes (gallbladder removed, tonsils and adenoids removed) Cardiac Surgery: No Cholecystectomy: Yes Ear Surgery: No Endocrine Surgery: No Eye Surgery: Yes (left eye surgeries X3 (lazy eye)) Genitourinary Surgery: No Gynecologic Surgery: Yes Neurologic Surgery: No Oral Surgery: No Thoracic Surgery: No Tonsillectomy: Yes Other Surgery: Yes (cervical leep) Social History Alcohol Use: Yes (OCC) Tobacco Use: Yes (vape) Substance Use: Yes (MARIJUANA) Allergies-Medications (Allergen,Severity, Reaction): Coded Allergies: erythromycin base (Verified Allergy, Severe, HIVES, 06/30/17) ketorolac (Verified Allergy, Severe, HIVES, 06/30/17) phenobarbital (Verified Allergy, Severe, RASH, 06/30/17) tramadol (Verified Allergy, Severe, RASH, 06/30/17) ondansetron (Verified Adverse Reaction, Severe, Twitching, 06/30/17) metoclopramide (Verified Adverse Reaction, Intermediate, SHAKING, 06/30/17) prochlorperazine (Verified Adverse Reaction, Unknown, AGITATION, 06/30/17) Reported Meds & Prescriptions Reported Meds & Active Scripts Active Hydrocodone-Acetaminophen 7.5 Mg-325 Mg Tab 1 Tab PO Q6H PRN Acyclovir 400 Mg Tab 400 Mg PO TID 7 Days Metronidazole 500 Mg Tab 500 Mg PO BID 7 Days Keppra (Levetiracetam) 500 Mg Tab 500 Mg PO Q12HR Reported Effexor (Venlafaxine HCl) 100 Mg Tab 150 Mg PO DAILY Vistaril (Hydroxyzine Pamoate) 25 Mg Cap 25 Mg PO QID Gabapentin 800 Mg Tab 800 Mg PO TID Ambien (Zolpidem Tartrate) 5 Mg Tab 5 Mg PO HS PRN Review of Systems Except as stated in HPI: all other systems reviewed are Neg General / Constitutional: No: Fever Eyes: No: Visual changes HENT: Positive: Headaches, No: Neck Stiffness, Neck Pain Cardiovascular: No: Chest Pain or Discomfort Respiratory: No: Shortness of Breath Gastrointestinal: Positive: Nausea, No: Abdominal Pain Genitourinary: No: Dysuria Musculoskeletal: No: Pain Skin: No Rash Neurologic: Positive: Seizures, No: Weakness, Focal Abnormalities, Change in Mentation, Slurred Speech, Sensory Disturbance Psychiatric: No: Depression Endocrine: No: Polydipsia Hematologic/Lymphatic: No: Easy Bruising Physical Exam Narrative General: The patient is a well-developed well-nourished female in no acute distress. Head and Neck exam: Head is normocephalic atraumatic. Eyes: EOMI, pupils are equal round and reactive to light, 5 mm bilaterally. Nose: Midline septum with pink mucous membranes Mouth: Dentition unremarkable. Moist mucus membranes. Posterior oropharynx is not erythematous. No tonsillar hypertrophy. Uvula midline. Airway patent. No evidence of tongue trauma. Neck: No palpable lymphadenopathy. No nuchal rigidity. No thyromegaly. Cardiovascular: Regular rate and rhythm without murmurs, gallops, or rubs. No pulse deficit to the extremities on simultaneous auscultation and palpation of her radial artery. Lungs: Clear to auscultation bilaterally. No wheezes, rhonchi, or rales. Abdomen: Soft, without tenderness to palpation in all 4 quadrants of the abdomen. No guarding, rebound, or rigidity. Normal bowel sounds are audible. No tenderness on palpation of McBurney's point. Negative Gracia sign. Extremities: No clubbing, cyanosis, or edema. 2+ pulses in all 4 extremities. No calf tenderness on palpation. Back: No spinous process tenderness to palpation. No costovertebral angle tenderness to palpation. Neurologic Exam: Cranial nerves 2-12 were intact on exam. Strength is 5/5 in all 4 extremities. No sensory deficits noted. Skin Exam: No rash noted. Intact skin that is warm and dry. Data Data Last Documented VS Vital Signs Date Time Temp Pulse Resp B/P (MAP) Pulse Ox O2 Delivery O2 Flow Rate FiO2 08/09/17 22:12 98 Room Air 08/09/17 21:25 98.9 88 18 136/95 (109) Orders Orders Electrocardiogram (08/09/17 21:36) Complete Blood Count With Diff (08/09/17 21:36) Comprehensive Metabolic Panel (08/09/17 21:36) Prothrombin Time / Inr (Pt) (08/09/17 21:36) Act Partial Throm Time (Ptt) (08/09/17 21:36) Lipase (08/09/17 21:36) Urinalysis - C+S If Indicated (08/09/17 21:36) Magnesium (Mg) (08/09/17 21:36) Phenobarbital (08/09/17 21:36) Chest, Single Ap (08/09/17 21:36) Iv Access Insert/Monitor (08/09/17 21:36) Ecg Monitoring (08/09/17 21:36) Oximetry (08/09/17 21:36) Ed Urine Pregnancytest Poc (08/09/17 21:36) Drug Screen, Random Urine (08/09/17 21:36) Alcohol (Ethanol) (08/09/17 21:36) Diphenhydramine Inj (Benadryl Inj) (08/09/17 22:30) Sodium Chlorid 0.9% 500 Ml Inj (Ns 500 M (08/09/17 22:30) Levetiracetam Inj (Keppra Inj) (08/09/17 22:30) Labs Laboratory Tests Test 08/09/17 21:43 08/09/17 22:15 08/09/17 22:24 White Blood Count 9.1 TH/MM3 Red Blood Count 4.16 MIL/MM3 Hemoglobin 12.3 GM/DL Hematocrit 36.5 % Mean Corpuscular Volume 87.9 FL Mean Corpuscular Hemoglobin 29.6 PG Mean Corpuscular Hemoglobin Concent 33.7 % Red Cell Distribution Width 13.9 % Platelet Count 290 TH/MM3 Mean Platelet Volume 9.3 FL Neutrophils (%) (Auto) 51.3 % Lymphocytes (%) (Auto) 37.3 % Monocytes (%) (Auto) 6.8 % Eosinophils (%) (Auto) 3.8 % Basophils (%) (Auto) 0.8 % Neutrophils # (Auto) 4.7 TH/MM3 Lymphocytes # (Auto) 3.4 TH/MM3 Monocytes # (Auto) 0.6 TH/MM3 Eosinophils # (Auto) 0.3 TH/MM3 Basophils # (Auto) 0.1 TH/MM3 CBC Comment DIFF FINAL Differential Comment Prothrombin Time 10.0 SEC Prothromb Time International Ratio 1.0 RATIO Activated Partial Thromboplast Time 21.7 SEC Blood Urea Nitrogen 9 MG/DL Creatinine 0.72 MG/DL Random Glucose 107 MG/DL Total Protein 7.6 GM/DL Albumin 3.4 GM/DL Calcium Level 9.0 MG/DL Magnesium Level 1.9 MG/DL Alkaline Phosphatase 80 U/L Aspartate Amino Transf (AST/SGOT) 19 U/L Alanine Aminotransferase (ALT/SGPT) 23 U/L Total Bilirubin 0.3 MG/DL Sodium Level 139 MEQ/L Potassium Level 3.8 MEQ/L Chloride Level 107 MEQ/L Carbon Dioxide Level 23.1 MEQ/L Anion Gap 9 MEQ/L Estimat Glomerular Filtration Rate 94 ML/MIN Lipase 138 U/L Phenobarbital Level LESS THAN 2.1 MCG/ML Ethyl Alcohol Level LESS THAN 3 MG/DL Urine Opiates Screen POS Urine Barbiturates Screen NEG Urine Amphetamines Screen NEG Urine Benzodiazepines Screen POS Urine Cocaine Screen NEG Urine Cannabinoids Screen POS Urine Color YELLOW Urine Turbidity HAZY Urine pH 5.0 Urine Specific Brainard 1.027 Urine Protein 30 mg/dL Urine Glucose (UA) NEG mg/dL Urine Ketones NEG mg/dL Urine Occult Blood SMALL Urine Nitrite NEG Urine Bilirubin NEG Urine Urobilinogen LESS THAN 2 mg/dL Urine Leukocyte Esterase NEG Urine RBC LESS THAN 1 /hpf Urine WBC 2 /hpf Urine Squamous Epithelial Cells 5 /hpf Urine Bacteria RARE /hpf Urine Hyaline Casts 11 /lpf Urine Mucus MANY /lpf Microscopic Urinalysis Comment CULT NOT INDICATED MDM Medical Decision Making Medical Screen Exam Complete: Yes Emergency Medical Condition: Yes Medical Record Reviewed: Yes Differential Diagnosis Seizure, versus pseudoseizure with conversion disorder, versus electrolyte abnormality, versus lowered seizure threshold from drug use, versus withdrawal syndrome. Narrative Course During the course of the patient's emergency department visit, the patient's history, examination, and differential diagnosis were reviewed with the patient. The patient was placed on a secured entrance monitor with oximetry and frequent blood pressure monitoring. The patient had IV access obtained and blood work sent for analysis. The patient had an EKG done on arrival. The patient's EKG revealed a sinus rhythm heart rate of 82, QRS duration is 97 ms, QTC [address] segment elevation. T waves are inverted in V1. The patient was initially provided normal saline at 500 mL bolus 1, diphenhydramine 25 mg IV and she reports that this helps with anxiety and she is currently feeling anxious, Keppra 500 mg IV after review of the record revealed that the patient's neurologist, , on last evaluation when admitted to the hospital had increased her Keppra from 500 mg twice a day to 1000 mg twice a day. The patient's laboratory studies were reviewed and remarkable for a CBC that is within normal limits, CMP is remarkable for a glucose of 107, lipase 138, PT 10 , PTT 21.7, urine drug screen is positive for opiates, benzodiazepines, cannabinoids. Phenobarbital level is less than 2.1, alcohol level less than 3 Radiology studies were reviewed and remarkable for a chest x-ray that shows no acute abnormality. Review of the record reveals that the patient has undergone multiple CT scans of the brain related to seizure activity. The last one was in February 2017. The patient's neurologic examination after reported seizure activity is within normal limits, therefore another CT scan of the brain would not be indicated. It appears from review of the record that Dr. Cervantes wanted to see the patient in follow-up after her last hospitalization. The patient will be provided his office address and phone number for follow-up. She is instructed to call for an appointment for follow-up to be seen in the next 3 days. She is instructed to follow-up with her primary care physician in the next 2 days. She is given a prescription for increasing her dose of Keppra which she will discuss further with her neurologist when she follows up with him. The patient is resting comfortably and feels better, is alert and in no distress. The patient's results and examination findings were discussed with the patient. The repeat examination is unremarkable and benign. The history, exam, diagnostic testing, and current condition do not suggest any significant pathology to warrant further testing, continued ED treatment, admission, or surgical evaluation at this point. The vital signs have been stable. The patient does not have uncontrollable pain, intractable vomiting, or other significant symptoms. The patient's condition is stable and appropriate for discharge. The patient will pursue further outpatient evaluation with a primary care physician or other designated or consulting physician as indicated in the discharge instructions. The patient is instructed to report back to the emergency department immediately for reexamination in the mean time if she develops any new or worsening signs or symptoms. The patient expressed understanding and was agreeable with this plan. Diagnosis Primary Impression: Seizure disorder Referrals: Erika Orantes MD 3 days Patient Instructions: General Instructions, Recurrent Seizures in Adults (ED) Med/Other Pt SpecificInfo: Prescription(s) given Scripts Levetiracetam (Keppra) 500 Mg Tab 1000 MG PO Q12HR for Control Seizures, #14 TAB Prov: Chacha Wild MD 08/09/17 Disposition: 01 DISCHARGE HOME Condition: Stable Chacha Wild MD Aug 09, 2017 21:47
[2017-08-09 21:58] LABS: AUTOMATED NEUTROPHIL # 4.7 TH/MM3 (1.8-7.7); BASOPHIL # 0.1 TH/MM3 (0-0.2); BASOPHIL % 0.8 % (0.0-2.0); EOSINOPHIL # 0.3 TH/MM3 (0-0.4); EOSINOPHIL % 3.8 % (0.0-4.0); HEMATOCRIT 36.5 % (35.0-46.0); HEMOGLOBIN 12.3 GM/DL (11.6-15.3); LYMPH % 37.3 % (9.0-44.0); LYMPHOCYTE # 3.4 TH/MM3 (1.0-4.8); MEAN CELL VOLUME 87.9 FL (80.0-100.0); MEAN CORPUSCULAR HEMOGLOBIN 29.6 PG (27.0-34.0); MEAN CORPUSCULAR HGB CONC 33.7 % (32.0-36.0); MEAN PLATELET VOLUME 9.3 FL (7.0-11.0); MONO % 6.8 % (0.0-8.0); MONOCYTE # 0.6 TH/MM3 (0-0.9); NEUT % 51.3 % (16.0-70.0); PLATELET COUNT 290 TH/MM3 (150-450); RED BLOOD COUNT 4.16 MIL/MM3 (4.00-5.30); RED CELL DISTRIBUTION WIDTH 13.9 % (11.6-17.2); WHITE BLOOD COUNT 9.1 TH/MM3 (4.0-11.0)
--- NOTE | 2017-08-09 21:58 | RADRPT ---
EXAM DATE: 08/09/2017 9:55 PM EDT AGE/SEX: 32 years / Female INDICATIONS: Shortness of breath. CLINICAL DATA: This is the patient's initial encounter. Patient reports that signs and symptoms have been present for 1 day and indicates a pain score of 0/10. MEDICAL/SURGICAL HISTORY: . Seizures Tonsillectomy. COMPARISON: [facility] [place] CHEST SINGLE AP, 06/30/2017. . FINDINGS: A single AP view of the chest demonstrates the lungs to be symmetrically aerated without evidence of mass, infiltrate or effusion. The cardiomediastinal contours are unremarkable. Osseous structures a re intact. CONCLUSION: No active disease. Electronically signed by: Ted Seaman MD 08/09/2017 9:57 PM EDT
[2017-08-09 22:12] VITALS: O2SAT 98
[2017-08-09 22:13] LABS: ALBUMIN 3.4 GM/DL (3.4-5.0); AST (GOT) 19 U/L (15-37); BICARBONATE 23.1 MEQ/L (21.0-32.0); BLOOD UREA NITROGEN 9 MG/DL (7-18); CHLORIDE 107 MEQ/L (98-107); CREATININE 0.72 MG/DL (0.50-1.00); GLOMERULAR FILTRATION RATE 94 ML/MIN (>89); GLUCOSE,RANDOM 107 MG/DL (74-106); MAGNESIUM 1.9 MG/DL (1.5-2.5); SODIUM (NA) 139 MEQ/L (136-145)
[2017-08-09 22:14] LABS: ALT (GPT) 23 U/L (10-53)
[2017-08-09 22:17] LABS: ALKALINE PHOSPHATASE 80 U/L (45-117); TOTAL BILIRUBIN ADULT 0.3 MG/DL (0.2-1.0); TOTAL PROTEIN 7.6 GM/DL (6.4-8.2)
[2017-08-09] MEDS ORDERED: SODIUM CHLORID 0.9% 500 ML INJ 500 ML IV ONE (22:30)
[2017-08-09] MEDS ORDERED: diphenhydrAMINE HCL 50 MG/ML VIAL IV PUSH ONE (22:30)
[2017-08-09] MEDS ORDERED: levETIRAcetam INJ 500 MG in SODIUM CHLORIDE 0.9% INJ 100 ML IV ONE (22:30)
[2017-08-09 22:41] LABS: BACTERIA, URINE RARE /hpf; BILIRUBIN, URINE NEG (NEG); BLOOD, URINE SMALL (NEG); GLUCOSE,URINE NEG (NEG); HYALINE CAST, URINE 11 /lpf (RARE); KETONE, URINE NEG (NEG); MUCUS URINE MANY /lpf (OCC); NITRITE,URINE NEG (NEG); SQUAMOUS EPITHELIAL CELL URINE 5 /hpf (0-5); URINE COLOR YELLOW (YELLW/STRAW); URINE LEUKOCYTE ESTERASE NEG (NEG)
[2017-08-09] MEDS ORDERED: LEVE500 PO (23:23)
[2017-08-09 23:52] VITALS: BP 109/81
--- NOTE | 2017-08-10 23:05 | EKG ---
Date Performed: 08/09/2017 Time Performed: 21:13:15 PTAGE: 32 years EKG: Sinus rhythm NORMAL ECG NO PREVIOUS TRACING DOCTOR: Rodolfo Haddad Interpretating Date/Time 08/10/2017 22:57:06
== END 2017-08-09 23:53 | disposition home or self-care (01) ==
LOC: NEPC 21:15
DX: G40.909 Epilepsy, unspecified, not intractable, without status epilepticus (principal); R51 Headache; F41.9 Anxiety disorder, unspecified; F31.9 Bipolar disorder, unspecified; K21.9 Gastro-esophageal reflux disease without esophagitis; G89.29 Other chronic pain; M54.9 Dorsalgia, unspecified; F44.81 Dissociative identity disorder; F43.10 Post-traumatic stress disorder, unspecified; F12.90 Cannabis use, unspecified, uncomplicated; Z72.0 Tobacco use; Z85.41 Personal history of malignant neoplasm of cervix uteri; Z79.899 Other long term (current) drug therapy
CPT/HCPCS: 71045; 80053; 80184; 80307; 81001; 83690; 83735; 84703; 85025; 85610; 85730; 93005; 96374; 96375; 99285; J1200; J1953; J7040